=== PATIENT | male | born 1975 | race Two or more races ===

== ENCOUNTER 2022-08-19 02:16 | Inpatient (IN) | payer MEDICAID ==
[~2022-08-19] VITALS: Ht 180.3 cm; Wt 165.1 kg
--- NOTE | 2022-08-19 02:35 | NUR ---
BIBSELF C/O CHF EXCARBATION X 1 WEEK, LEG SWELLING. PT A/OX4. TOLERATING R/A AT 93%. W/C BOUND. CONNECTED PT TO POX AND MONITOR. SAFETY MEASURES IN PLACE.
--- NOTE | 2022-08-19 03:00 | NUR ---
R DOUGIE #20G S/L BLOOD COLLECTED AND SENT TO LAB
--- NOTE | 2022-08-19 03:00 | NUR ---
BURN CREW MEMBER AT PT'S BEDSIDE
--- NOTE | 2022-08-19 03:02 | NUR ---
Note maude in EDM - 08/19/22 at 0303 by KOLBY BIBSELF C/O CHF EXCARBATION X 1 WEEK, LEG SWELLING. PT A/OX4. TOLERATING R/A AT 93%. W/C BOUND. CONNECTED PT TO POX AND MONITOR. SAFETY MEASURES IN PLACE.
[2022-08-19 03:10] LABS: BASOPHILS # (AUTO) 0.1 K/uL (0.0-0.2); BASOPHILS % (AUTO) 0.6 % (0.0-2.0); EOSINOPHILS % (AUTO) 6.4 % (0.0-6.0); HEMATOCRIT 33 % (39-51); HEMOGLOBIN 9.7 g/dL (13.5-17.5); LYMPHOCYTES # (AUTO) 1.7 K/uL (0.8-4.8); LYMPHOCYTES % (AUTO) 14.3 % (20.0-44.0); MEAN CORPUSCULAR HGB CONC 30 g/dl (31.0-36.0); MEAN CORPUSCULAR VOLUME 76 fL (80-96); MONOCYTES # (AUTO) 1.3 K/uL (0.1-1.30); MONOCYTES % (AUTO) 10.6 % (2.0-12.0); NEUTROPHILS % (AUTO) 68.1 % (43.0-81.0); PLATELET COUNT (AUTO) 248 K/uL (150-450); RED BLOOD CELL COUNT(AUTO) 4.31 MIL/uL (4.5-6.0); WHITE BLOOD COUNT (AUTO) 11.8 K/uL (4.3-11.0)
[2022-08-19 03:18] LABS: CALCIUM, SERUM 7.7 mg/dL (8.5-10.1); CARBON DIOXIDE 31 mmol/L (21-32); CHLORIDE 106 mmol/L (98-107); CREATININE 2.1 mg/dL (0.6-1.3); GLUCOSE 198 mg/dL (74-106); POTASSIUM 4.2 mmol/L (3.5-5.1); SODIUM SERUM 139 mmol/L (136-145); UREA NITROGEN, BLOOD 39 mg/dL (7-18)
[2022-08-19] MEDS ORDERED: FUROSEMIDE 40 MG/4 ML VIAL ONE (04:18)
[2022-08-19] MEDS ORDERED: HYDROCODONE/APAP 5/325MG TABLET ONE ×2 (04:19→10:52)
[2022-08-19] MEDS ORDERED: FUROSEMIDE 40 MG/4 ML VIAL IV ONE (04:30)
[2022-08-19] MEDS ORDERED: HYDROCODONE/APAP 5/325MG TABLET PO ONE ×2 (04:30→11:00)
--- NOTE | 2022-08-19 04:40 | NUR ---
COVID AND MRSA SWAB DONE, SENT TO LAB
--- NOTE | 2022-08-19 05:28 | NUR ---
CLINICAL REPORT GIVEN TO FAUSTINA FINCH FROM ALLIED PHYSICIANS
--- NOTE | 2022-08-19 07:59 | NUR ---
PT AWAKE AND VERBALLY RESPONSIVE. BREAKFAST TRAY PROVIDED, LAYNE WELL.
--- NOTE | 2022-08-19 08:01 | NUR ---
FAUSTINA FINCH [phone] ALLIED CALLED REQUESTING COVID RESULT FAXED TO [phone]
--- NOTE | 2022-08-19 09:40 | NUR ---
MOVE SHEET SUBMITTED.
--- NOTE | 2022-08-19 10:47 | NUR ---
ND DR ELLSWORTH, OK FOR PT TO HAVE ANOTHER DOSE OF NORCO 5-325 FOR PAIN. ORDER READ BACK AND VERIFIED.
--- NOTE | 2022-08-19 10:59 | NUR ---
CALLED FAUSTINA FINCH [phone] [facility] AUTH #[id number]
--- NOTE | 2022-08-19 11:18 | NUR ---
DR CAMPOS AT BEDSIDE W/ PT
[2022-08-19] MEDS ORDERED: METO25TA20 PO (11:37)
[2022-08-19] MEDS ORDERED: BUME2TAB7 PO (11:37)
[2022-08-19] MEDS ORDERED: INSU100I40 SQ (11:37)
[2022-08-19] MEDS ORDERED: INSU100V7 SQ (11:37)
[2022-08-19] MEDS ORDERED: METF-440 PO (11:37)
[2022-08-19] MEDS ORDERED: LISI10TA29 PO (11:37)
[2022-08-19] MEDS ORDERED: CLON0.1T PO (11:37)
[2022-08-19] MEDS ORDERED: GABA300C PO (11:37)
[2022-08-19] MEDS ORDERED: AMLO-213 PO (11:37)
[2022-08-19] MEDS ORDERED: ASPI-1420 PO (11:37)
[2022-08-19] MEDS ORDERED: DEXTROSE 50%-WATER 50 ML DISP.SYRIN IV PRN (12:00)
[2022-08-19] MEDS ORDERED: Z GUARD REMEDY 4 OZ OINT TP PRN (12:00)
[2022-08-19] MEDS ORDERED: ONDANSETRON HCL/PF 4 MG/2 ML VIAL IVP PRN (12:00)
[2022-08-19] MEDS ORDERED: ACETAMINOPHEN 325 MG TABLET PO PRN (12:00)
--- NOTE | 2022-08-19 12:27 | NUR ---
room 324-2
--- NOTE | 2022-08-19 12:31 | NUR ---
PT REPORT GIVEN TO ENZO BALL
[2022-08-19 12:55] VITALS: BP 144/84
--- NOTE | 2022-08-19 13:11 | NUR ---
PT TRANSFERRED TO 324-1 VIA [facility] ACLS PROTOCOL. WARM HANDOFF GIVEN TO ENZO BALL.
--- NOTE | 2022-08-19 13:30 | NUR ---
BUSINESS ANALYST MANAGER ADMITTING NOTES ADMITTED A 47 YO MALE PT TO UNIT AT 1255 VIA RNEY WITH DX OF CHF. PT IS AOX4 AND ABLE TO MAKE NEEDS KNOWN. ORIENTED TO ROOM AND STAFF. VS TAKEN, STABLE AND RECORDED, PT ON 3LPM VIA NC SATURATING AT 100%, TOLERATING WELL. ON TELEMONITORING SHOWING AFIB AT 110 BPM. WITH NO ACUTE RESPIRATORY DISTRESS NOTED. WITH IV ACCESS NOTED ON RIGHT HAND G#20 SALINE LOCKED, PATENT FLUSHING WELL. ABDOMEN SOFT, NON-TENDER WITH + BOWEL SOUNDS ON FOUR QUADRANTS, LUNGS SOUNDS DIMINISHED AND SOME RHONCHI THROUGHOUT UPON AUSCULTATION. PATIENT'S OLD BILATERAL COMPRESSION WRAP, CHANGED, CLEANED WOUND WITH NS, PAT DRY, WRAPPED WITH NEW KERLIX AND SECURED WITH JD BANDAGE. PHOTOS OF LEG WOUNDS TAKEN. WOUND CONSULT DONE WELL. PATIENT'S BELONGINGS ACCOUNTED FOR. SAFETY MEASURES IMPLEMENTED: BED PLACED IN LOWEST AND LOCKED POSITION, WITH SIDE RAILS UP X2, TRAY TABLE AND CALL LIGHT WITHIN EASY REACH. WILL CONTINUE TO MONITOR DURING MY SHIFT.
[2022-08-19] MEDS: FUROSEMIDE 40 MG/4 ML VIAL IV SCH ×3 (13:38→21:47)
[2022-08-19 13:41] LABS: CHOLESTEROL 98 mg/dL (<200); HDL CHOLESTEROL 43 mg/dL (40-60); LDL 54 mg/dL (0-99); TRIGLYCERIDES 50 mg/dL (30-150)
[2022-08-19] MEDS: BLOOD SUGAR DIAGNOSTIC 1 EACH STRIP IN SCH ×3 (13:48→22:14)
[2022-08-19] MEDS: ENOXAPARIN SODIUM 40 MG/0.4 ML DISP.SYRIN SQ SCH (13:52)
[2022-08-19 14:33] LABS: IRON, SERUM 34 ug/dl (50-175); TOTAL IRON BINDING CAPACITY 292 ug/dl (250-450)
[2022-08-19 14:47] LABS: FERRITIN 54 ng/mL (8-388)
[2022-08-19] MEDS: VANCOMYCIN 1.5 GM in IV D5W 500ml IV SCH (15:36)
[2022-08-19] MEDS: INSULIN REGULAR, HUMAN 100 UNIT/ML 3 ML VIAL SQ PRN ×3 (15:39→22:17)
--- NOTE | 2022-08-19 15:56 | NUR ---
RN NOTES - FR 16 BURNETT INSERTED ORDERED, ASEPTIC TECHNIQUE FOLLOWED, BACK FLOW OF ABOUT 500 ML OF PALE YELLOW URINE FLOWED VIA GRAVITY WITH NO SEDIMENTS NOTED. PATIENT DENIED DISCOMFORT NOR PAIN, WILL CONTINUE TO MONITOR.
[2022-08-19 16:00] VITALS: BP 147/80
[2022-08-19] MEDS: HYDROCODONE/APAP 5/325MG TABLET PO PRN ×2 (17:30→21:48)
--- NOTE | 2022-08-19 17:30 | NUR ---
RN NOTES - PAIN MANAGEMENT PATIENT IS COMPLAINING OF 10/10 LEG PAIN BUT WAS REFUSING NORCO 5, INSISTING ME TO OVERRIDE THE ORDER AND GIVE STRONGER PAIN MEDICATION, GAVE THE NUMBER TO THE DR CAMPOS PER HIS REQUEST. WAS REFUSING HIS ROUTINE LASIX AND 1730 INSULIN BUT LATER ON ASKED FOR IT WHEN I WAS LEAVING THE ROOM. LEFT THE ROOM WHILE PATIENT IS ON THE PHONE WITH THE EPIC SERVICE SPECIALIST.
--- NOTE | 2022-08-19 17:57 | NUR ---
RN NOTES - PATIENT REFUSED HIS TROPONIN BLOOD DRAW, INFORMED MD. WILL RELAY TO THE GRINDING WHEEL DRESSER NURSE.
--- NOTE | 2022-08-19 19:15 | NUR ---
SURGICAL RN CLOSING NOTES PATIENT SITTING ON THE EDGE OF THE BED BEING WATCHED BY CONSTRUCTION REPRESENTATIVE. PATIENT WAS UPSET THAT WE COULDNT GIVE HIM A HIGHER DOSE OF PAIN MEDICATION WHEN HE JUST HAVE NORCO 5 AT 1730. PATIENT IS ABLE TO TOLERATE ROOM AIR THIS TIME, NO SOB NOTED, BREATHING EVEN AND UNLABORED. TELEMONITORING SHOW AFIB AT 110 BPM. PATIENT HAS IV ACCESS ON R HAND G#20 SALINE LOCKED. NO SIGNS OF INFILTRATION. PATIENT HAS BURNETT CATHETER DRAINING PALE YELLOW URINE WITHOUT ANY SEDIMENTS VIA GRAVITY. ALL DUE MEDS GIVEN, ALL NEEDS ATTENDED. SAFETY MEASURES IN PLACE: BED AT LOWEST POSITION AND LOCKED, SIDE RAILS 2X, CALL LIGHT AND TRAY TABLE WITHIN REACH. ENDORSED TO THE STAMP CLASSIFIER NURSE.
--- NOTE | 2022-08-19 19:40 | NUR ---
PROFESSIONAL GOLF TOURNAMENT PLAYER OPENING NOTE RECEIVED PATIENT SITTING ON THE EDGE OF THE BED. PATIENT ON ROOM AIR, ABLE TO TOLERATE ROOM AIR THIS TIME, NO SOB NOTED, BREATHING EVEN AND UNLABORED. TELEMONITORING SHOW AFIB AT 110 BPM. PATIENT HAS IV ACCESS TO RIGHT HAND G#20 SALINE LOCKED. NO SIGNS OF INFILTRATION. PATIENT HAS BURNETT CATHETER DRAINING CLEAR YELLOW URINE WITHOUT ANY SEDIMENTS VIA GRAVITY. SAFETY MEASURES IN PLACE: BED LOCKED, IN LOWEST POSITION, SIDE RAILS 2X, CALL LIGHT AND TRAY TABLE WITHIN REACH. WILL CONTINUE TO MONITOR PT.
[2022-08-19 20:00] VITALS: BP 140/80
[2022-08-19] MEDS: GABAPENTIN 300 MG CAPSULE PO SCH (21:46)
[2022-08-19] MEDS: METOPROLOL TARTRATE 25 MG TABLET PO SCH (21:47)
--- NOTE | 2022-08-19 21:48 | NUR ---
SPECIAL AGENT [employer] NOTE PT C/O PAIN TO BLE. PAIN MED NORCO IS ADMINISTERED TO PT.
[2022-08-19] MEDS: INSULIN GLARGINE, 100 UNIT/ML CARTRIDGE SQ SCH (22:20)
[2022-08-19] MEDS: ZOLPIDEM TARTRATE 5 MG TABLET PO PRN (22:50)
--- NOTE | 2022-08-19 22:50 | NUR ---
DISC PAD KNOCKOUT WORKER NOTE PT REPORTS INSOMNIA. SMOOTHIEN IS GIVEN TO PT.
[2022-08-20] MEDS: FUROSEMIDE 40 MG/4 ML VIAL IV SCH ×6 (01:47→21:31)
[2022-08-20 04:00] VITALS: BP 96/77
[2022-08-20] MEDS: INSULIN REGULAR, HUMAN 100 UNIT/ML 3 ML VIAL SQ PRN ×4 (06:12→22:08)
[2022-08-20] MEDS: BLOOD SUGAR DIAGNOSTIC 1 EACH STRIP IN SCH ×4 (06:14→22:16)
--- NOTE | 2022-08-20 07:05 | NUR ---
CARDIAC CATHETERIZATION TECHNICIAN CLOSING NOTE ASHWIN PT SLEEPING IN BED. PATIENT ON ROOM AIR, ABLE TO TOLERATE ROOM AIR THIS TIME, NO SOB NOTED, BREATHING EVEN AND UNLABORED. TELEMONITORING SHOW AFIB. PATIENT HAS IV ACCESS TO RIGHT HAND G#20 SALINE LOCKED. NO SIGNS OF INFILTRATION. PATIENT HAS BURNETT CATHETER DRAINING CLEAR YELLOW URINE WITHOUT ANY SEDIMENTS VIA GRAVITY, 1100 ML OF URINE DRAINED. SAFETY MEASURES IN PLACE: BED LOCKED, IN LOWEST POSITION, SIDE RAILS 2X, CALL LIGHT AND TRAY TABLE WITHIN REACH. WILL ENDORSE TO AM SHIFT FOR MAGED.
--- NOTE | 2022-08-20 07:30 | NUR ---
SIGN WIRER OPENING NOTE RECEIVED PT ASLEEP IN BED, EASILY AROUSED. A/O X4, ABLE TO MAKE NEEDS KNOWN. ON O2 AT 3L/MIN VIA NASAL CANNULA, TOLERATING WELL. NO SOB NOTED. PT IS NOT IN ANY SIGN OF RESPIRATORY DISTRESS. PT ON TELE MANAGER RESTAURANT WITH CURRENT READING OF AFIB CONTROLLED, HR 99. NO C/O OF CARDIAC DISTRESS VOICED OUT AT THIS TIME. PT'S IV ACCESS ON RIGHT HAND G#20 INTACT AND PATENT. SAFETY MEASURES IN PLACE: BED IN LOWEST AND LOCKED POSITION, SIDE RAILS UP X2, BED ALARM ON, AND CALL LIGHT WITHIN REACH. WILL CONTINUE TO MONITOR PT.
[2022-08-20 08:00] VITALS: BP 139/95
[2022-08-20] MEDS: PANTOPRAZOLE 40 MG TABLET.DR PO SCH (08:26)
[2022-08-20 09:18] LABS: BASOPHILS # (AUTO) 0.1 K/uL (0.0-0.2); BASOPHILS % (AUTO) 0.5 % (0.0-2.0); EOSINOPHILS % (AUTO) 1.9 % (0.0-6.0); HEMATOCRIT 35 % (39-51); HEMOGLOBIN 10.4 g/dL (13.5-17.5); LYMPHOCYTES # (AUTO) 1.4 K/uL (0.8-4.8); MEAN CORPUSCULAR HGB CONC 30 g/dl (31.0-36.0); MEAN CORPUSCULAR VOLUME 78 fL (80-96); MONOCYTES # (AUTO) 1.2 K/uL (0.1-1.30); MONOCYTES % (AUTO) 10.5 % (2.0-12.0); NEUTROPHILS # (AUTO) 8.6 K/uL (1.8-8.9); NEUTROPHILS % (AUTO) 75.1 % (43.0-81.0); PLATELET COUNT (AUTO) 262 K/uL (150-450); RED BLOOD CELL COUNT(AUTO) 4.54 MIL/uL (4.5-6.0); WHITE BLOOD COUNT (AUTO) 11.4 K/uL (4.3-11.0)
[2022-08-20] MEDS: ASPIRIN EC 81 MG TABLET.DR PO SCH (09:41)
[2022-08-20] MEDS: METOPROLOL TARTRATE 25 MG TABLET PO SCH ×2 (09:42→21:31)
[2022-08-20 09:43] LABS: CALCIUM, SERUM 7.6 mg/dL (8.5-10.1); CREATININE 2.4 mg/dL (0.6-1.3); MAGNESIUM 1.9 mg/dL (1.8-2.4); PHOSPHORUS 5.5 mg/dL (2.5-4.9); POTASSIUM 4.9 mmol/L (3.5-5.1)
[2022-08-20] MEDS: ENOXAPARIN SODIUM 40 MG/0.4 ML DISP.SYRIN SQ SCH (09:43)
[2022-08-20 09:57] LABS: THYROID STIMULATING HORMONE 2.083 uIU/mL (0.358-3.74)
[2022-08-20] MEDS: SOD FERRIC GLUC 125 MG in IV NS 0.9% 100 ML IV SCH (14:43)
[2022-08-20] MEDS: VANCOMYCIN 1.5 GM in IV D5W 500ml IV SCH (15:30)
[2022-08-20 16:09] VITALS: BP 126/74
--- NOTE | 2022-08-20 17:34 | NUR ---
RN NOTE PT NOTED WITH 200ML OUTPUT DURING THE SHIFT. PT HAS AN ORDER OF LASIX 40MG Q4HRS AND 2 DOSES WAS GIVEN. BLADDER SCAN WAS DONE AND SHOWED 170ML. CALLED DR. ANDRES CRUZ AND MADE HIM AWARE OF PT'S OUTPUT. PER DR. CRUZ TO ADMINISTER MORE LASIX. MADE HIM AWARE THAT PT HAS ONE DUE RIGHT NOW AT 1700 LASIX 40MG IVP AND ASKED HIM IF OK TO ADMINISTER THAT. MD AGREED. MEDICATION ADMINISTERED ORDERED. WILL MONITOR AND REASSESS PT.
--- NOTE | 2022-08-20 18:43 | NUR ---
DRINK MIXER CLOSING NOTE PT ASLEEP IN BED, EASILY AROUSED. A/O X4, ABLE TO MAKE NEEDS KNOWN. ON O2 AT 3L/MIN VIA NASAL CANNULA, TOLERATING WELL. NO SOB NOTED. PT IS NOT IN ANY SIGN OF RESPIRATORY DISTRESS. PT ON TELE SHOULDER SAWYER WITH CURRENT READING OF AFIB CONTROLLED, HR 83. NO C/O OF CARDIAC DISTRESS VOICED OUT AT THIS TIME. PT'S IV ACCESS ON RIGHT HAND G#20 INTACT AND PATENT. ALL NEEDS ATTENDED. KEPT CLEAN AND COMFORTABLE AT ALL TIMES. SAFETY MEASURES IN PLACE: BED IN LOWEST AND LOCKED POSITION, SIDE RAILS UP X2, AND CALL LIGHT WITHIN REACH. WILL ENDORSE TO LAUNDRY OR DRY CLEANERS COUNTER CLERK NURSE FOR MAGED.
--- NOTE | 2022-08-20 19:50 | NUR ---
RN NOTES: RECEIVED CALL FORM [facility] THAT PATIENT WAS MRSA(+) RIGHT NARE NOTIFY OLLIE REBOLLEDO AND ORDERED STANDARD ORDER OF BACTROBAN APPLY THRU NARES, NATED AND CARRY OUT,
--- NOTE | 2022-08-20 19:52 | NUR ---
CISTERN ROOM OPERATOR OPENING NOTES; RECEIVED PATIENT SLEEP IN BED COMFORTABLY, AROUSABLE TO VERBAL STIMULI, BED IN LOW POSITION, CALL LIGHTS WITHIN REACH, NO COMPLAIN OF PAIN AND DISCOMFORT AT THIS TIME, ON O2 INHALATION AT 3LPM SATURATING WELL, NO SOB WAS OBSERVED, ON TELE MONITOR- A FIB 91 CONTROLLED, IV LINE AT RT HAND#20 SL, ON BURNETT CATHETER- 50CC URINE OUTPUT, PATIENT KEPT CLEAN AND DRY ALL NEEDS MET WILL CONTINUE TO MONITOR.
[2022-08-20 20:00] VITALS: BP 120/96
[2022-08-20] MEDS: GABAPENTIN 300 MG CAPSULE PO SCH (21:31)
[2022-08-20] MEDS: INSULIN GLARGINE, 100 UNIT/ML CARTRIDGE SQ SCH (22:07)
--- NOTE | 2022-08-20 22:16 | NUR ---
RN NOTES: BLOOD SUGAR-265/ 6 UNITS REGULAR INSULIN PER SLIDING SCALE GIVEN,
[2022-08-21] VITALS (60 sets, daily range): BP systolic 70–131; BP diastolic 45–89
[2022-08-21] MEDS: HYDROCODONE/APAP 5/325MG TABLET PO PRN (01:05)
[2022-08-21] MEDS: ZOLPIDEM TARTRATE 5 MG TABLET PO PRN (01:09)
[2022-08-21] MEDS: FUROSEMIDE 40 MG/4 ML VIAL IV SCH ×6 (01:31→21:07)
--- NOTE | 2022-08-21 06:22 | NUR ---
DOG OR ANIMAL SITTER CLOSING NOTES: PATIENT SLEEP IN BED COMFORTABLY, AROUSABLE TO VERBAL STIMULI, BED IN LOW POSITION CALL LIGHTS WITHIN REACH, NO COMPLAIN OF PAIN AND DISCOMFORT AT THIS TIME, ON O2 INHALATION AT 3LPM SATURATING AT 93%, ON TELE MONITOR- SR-83 WITH PAC AND BBB NO SYMPTOMS WAS OBSERVED, ON BURNETT CATHETER- DRAIN 300CC URINE OUTPUT, PATIENT KEPT CLEAN AND DRY ALL NEEDS MET ENDORSE TO INCOMING SHIFT.
[2022-08-21 06:31] LABS: BASOPHILS # (AUTO) 0.1 K/uL (0.0-0.2); BASOPHILS % (AUTO) 0.5 % (0.0-2.0); EOSINOPHILS % (AUTO) 0.8 % (0.0-6.0); HEMATOCRIT 38 % (39-51); HEMOGLOBIN 10.9 g/dL (13.5-17.5); LYMPHOCYTES # (AUTO) 1.4 K/uL (0.8-4.8); LYMPHOCYTES % (AUTO) 7.3 % (20.0-44.0); MEAN CORPUSCULAR HGB CONC 28 g/dl (31.0-36.0); MEAN CORPUSCULAR VOLUME 81 fL (80-96); MONOCYTES % (AUTO) 10.6 % (2.0-12.0); NEUTROPHILS % (AUTO) 80.8 % (43.0-81.0); PLATELET COUNT (AUTO) 259 K/uL (150-450); RED BLOOD CELL COUNT(AUTO) 4.74 MIL/uL (4.5-6.0); WHITE BLOOD COUNT (AUTO) 18.6 K/uL (4.3-11.0)
[2022-08-21] MEDS: INSULIN REGULAR, HUMAN 100 UNIT/ML 3 ML VIAL SQ PRN ×4 (06:37→23:49)
[2022-08-21 06:46] LABS: ALBUMIN 2.2 g/dL (3.4-5.0); BILIRUBIN,TOTAL 0.5 mg/dL (0.2-1.0); CALCIUM, SERUM 7.6 mg/dL (8.5-10.1); MAGNESIUM 2.2 mg/dL (1.8-2.4); PHOSPHORUS 6.8 mg/dL (2.5-4.9); POTASSIUM 5.4 mmol/L (3.5-5.1); TOTAL PROTEIN, SERUM 8.4 g/dL (6.4-8.2)
[2022-08-21] MEDS: BLOOD SUGAR DIAGNOSTIC 1 EACH STRIP IN SCH ×4 (06:53→23:48)
--- NOTE | 2022-08-21 06:53 | NUR ---
RN NOTES: BLOOD SUGAR-202/ 4 UNITS OF REGULAR INSULIN GIVEN PER SLIDING SCALE.
--- NOTE | 2022-08-21 07:15 | NUR ---
ELECTROLYSIS INVESTIGATOR OPENING NOTE RECEIVED PATIENT SLEEP IN BED COMFORTABLY, AROUSABLE TO TOUCH, BED IN LOW POSITION CALL LIGHTS WITHIN REACH, NO COMPLAIN OF PAIN AND DISCOMFORT AT THIS TIME, ON O2 INHALATION AT 4LPM SATURATING AT 93%, ON TELE MONITOR READING CONTROLLED AFIB . WITH IV ACCESS ON THE RIGHT HAND G 22, PATENT AND INTACT. ON BURNETT CATHETER- DRAIN 300CC URINE OUTPUT PER METAL DOOR ASSEMBLER. SAFETY MEASURES ENSURED WITH BED ON LOWEST LOCKED POSITION. SIDE RAILS RAISED. CALL LIGHT WITHIN REACH AT ALL TIMES. IN STABLE CONDITION.
--- NOTE | 2022-08-21 07:53 | NUR ---
county agent Opening Notes Received patient in bed sleeping with hob elevated. Pt is diaphoretic. On O2 inhalation at 3 lpm saturating at 92% on tele monitor and on Garcia catheter. IV access on LAC 20G running @75ml/hr. Safety measures given with bed in low position and locked, call light on reach at all times. Side rails up x2. Will continue with the plan of care. Addendum: 08/21/22 at 0918 by CHERYL LIU RN wrong entry
--- NOTE | 2022-08-21 07:55 | NUR ---
AGATE SETTER NOTE PATIENT NOTED TO HAVE DIAPHORETIC, WAS TALKING BACK WITH SLURRING, VITAL SIGNS CHECKED AND WAS RECORDED. 113/83, 98.2F, 90 BPM, 22 BPM, 94% SAT. IN STABLE CONDITION. COMFORT MEASURES PROVIDED.
--- NOTE | 2022-08-21 08:40 | NUR ---
RAPID RESPONSE CALLED BP 138/95, HR 122, OXYGEN SAT 91%, RR 26 BLOOD SUGAR 188
--- NOTE | 2022-08-21 08:43 | NUR ---
BP 160/99, HR 116, O2 87%, RR 28
--- NOTE | 2022-08-21 08:44 | NUR ---
STARCH DUMPER NOTE AT O825, PATIENT STARTED TO DESATURATE TO 78-80% WITH OXYGEN AT 4LPM VIA NASAL CANULA, PATIENT OXYGEN TITRATED AND CHANGED TO SIMPLE MASK AT 10LPM AND WAS REMOVING THE OXYGEN AND TELE BOX AND GOWN. PATIENT INSTRUCTED TO STAY CALM AND STOPPED BEING WHEN GOWN WAS REMOVED. AT THIS POINT OXYGEN SATURATION WAS AT 90-91% BUT OCCASIONALY DROPS TO 89%. CHARGE NURSE NOTIFIED AND RESPIRATORY THERAPIST CALLED. PATIENT ABG'S DONE AND HOOKED PATIENT TO OXYGEN 10 WITH NON-REBREATHER MASK AND VS CHECKED 160/99, 101, 92% SAT AND BS 188 MG/DL. PATIENT WAS RESPONDING VERY SLUGGISHLY AND HAD NO GAG REFLEX WHEN SUCTIONED. RAPID RESPONSE CALLED AND RAPID RESPONSE TEAM ASSESSED THE PATIENT AND PATIENT WAS IMMEDIATELY TRANSFERRED TO ICU ORDERED. PATIENT ACCOMPANIED BY 2 NURSES AND WAS ENDORSED TO ICU.
--- NOTE | 2022-08-21 08:47 | NUR ---
BATTALION CHIEF NOTE DR. CAMPOS NOTIFIED OF PATIENT'S CONDITION WITH ORDER TO TRANSFER PATIENT TO ICU. PATIENT TRANSFERRED ORDERED.
[2022-08-21] MEDS: METOPROLOL TARTRATE 25 MG TABLET PO SCH ×2 (09:00→21:00)
--- NOTE | 2022-08-21 09:00 | NUR ---
ICU/RN PT POST PIPE LINER, DUE TO ALOC.FROM TELE UNIT.TRANSFER TO ICU. INTUBATED IN ICU BY DNP DAISHA MAGALLANES.PLACED ON THE VENT,AC MODE.,FIO2-100%. OG TUBE INSERTED. RIGHT IJ TLC CATHETER INSERTED.F/C IN PLACE WITH MINIMAL AMOUNT OF DARK URINE.PT IS OBESE.GENERALIZED EDEMA PRESENT. DIPRIVAN ORDERED.BP DECREASED.LEVOPHED ORDERED. LABS REVIEW.MD AWARE. DUE MEDS ARE GIVEN ORDERED.
--- NOTE | 2022-08-21 09:23 | NUR ---
RT RAPID RESPONSE CALL ON PT, ABG DONE, INTUBATED PT WITH DAISHA ELPIDIO 8.0 23CM SECURED AT LIP BILATERAL EQUAL BREATH SOUNDS , PENDING CHEST XRAY PLACED ON MECH VENT PER PELEGS ORDERS AC 24 600 +5 100% ABG IN 1 HR WILL CONT TO MONITOR
[2022-08-21 09:25] LABS: ABG BASE EXCESS -8.6 mmol/L; ABG OXYGEN SATURATION 88.6 % (92.0-98.5); ABG PCO2 100.1 mmHg (35.0-45.0); ABG PO2 71.9 mmHg (75.0-100.0); AaDO2 393.4 mmHg; COHb 1.8 % (0.5-1.5); MetHb 0.3 % (0.0-1.5); O2Hb 86.7 % (94.0-97.0); SITE, ABG Right Radial; VENT MODE, BG NRB MASK
[2022-08-21] MEDS ORDERED: PROPOFOL 100 ML IV PRN ×2 (09:30→10:30)
[2022-08-21] MEDS: ENOXAPARIN SODIUM 40 MG/0.4 ML DISP.SYRIN SQ SCH (09:39)
[2022-08-21] MEDS ORDERED: NOREPINEPHRINE 8 MG in IV NS 0.9% 242 ML IV PRN (10:30)
[2022-08-21 10:45] LABS: ABG BASE EXCESS -2.2 mmol/L; ABG OXYGEN SATURATION 99.5 % (92.0-98.5); ABG PCO2 36.2 mmHg (35.0-45.0); ABG PH 7.403 (7.350-7.450); ABG PO2 208.9 mmHg (75.0-100.0); AaDO2 467.9 mmHg; COHb 1.4 % (0.5-1.5); MetHb 0.1 % (0.0-1.5); SITE, ABG Right Radial; VENT MODE, BG AC 24 650 100%+5
[2022-08-21] MEDS: PROPOFOL 100 ML IV PRN ×3 (10:54→19:28)
[2022-08-21] MEDS: ASPIRIN EC 81 MG TABLET.DR PO SCH (10:59)
[2022-08-21] MEDS: MUPIROCIN OINT 2% 22 GM TUBE NS SCH ×2 (10:59→21:05)
[2022-08-21] MEDS: PANTOPRAZOLE 40 MG TABLET.DR PO SCH (10:59)
[2022-08-21] MEDS ORDERED: LEVOFLOXACIN 500 MG /D5W 100ML 500 MG in PREMIX 1 EA IV ONE (12:00)
[2022-08-21] MEDS ORDERED: DEXTROSE 50%-WATER 50 ML DISP.SYRIN IV PRN (12:30)
[2022-08-21] MEDS: SOD FERRIC GLUC 125 MG in IV NS 0.9% 100 ML IV SCH (14:47)
[2022-08-21] MEDS ORDERED: ROCURONIUM BROMIDE 50 MG/5 ML IV ONE (15:31)
[2022-08-21] MEDS ORDERED: ETOMIDATE 2 MG/ML VIAL IV ONE (15:31)
[2022-08-21] MEDS: VANCOMYCIN 1.5 GM in IV D5W 500ml IV SCH (16:24)
--- NOTE | 2022-08-21 18:02 | NUR ---
ICU/RN PM CARE PROVIDED.DUE MEDS ARE GIVEN ORDERED.PT IS SEDATED WITH DIPRIVAN ,ON SMALL DOSE OF LEVOPHED.LASIX IV WAS GIVEN ORDERED. 250 ML OF URINE OUTPUT FOR 12 HRS.MD AWARE.SUCTION PROVIDED.REPOSITION FOR COMFORT.CONTINUE MONITORING.
--- NOTE | 2022-08-21 19:30 | NUR ---
RN OPENING NOTE RECEIVED PT IN BED ON [facility] VENT, TOLERATING VENT SETTINGS WELL, PT SEDATED ON PROPOFOL@ 20MCG/KG/MIN, PT ALSO ON LEVOPHED @0.02MIC/MG/MIN, MONITOR SHOWING CONTROLLED A FLUTTER, IV ACCESS RIJ & RHAND, BOTH INTACT AND PATENT. PT HAS OG TUBE CLAMPED, NO DIET ORDERED. BURNETT CATHETER DRAINGING SMALL AMOUNT OF YELLOW URINE. PT HAS BLE JD BANDAGES COVERING WOUNDS WITH NO WOUND TREATMENT ON FILE, WOULD CONSULT ORDERED. ALL SAFETY MEASURES IN PLACE. WILL CONTINUE TO MONITOR FOR MAGED.
--- NOTE | 2022-08-21 19:50 | NUR ---
RT Pt received orally intubated w/ 8.0 ETT secured 23cm at the lip line on [facility] vent on settings AC mode, rate 16, VT 650, FIO2 40%, PEEP 0. Airway patent and KELP OR SEAGRASS GATHERER done. Pt suctioned small amount of clear secretions. Alarms set and audible. Vent plugged into red outlet. Ambubag at bedside. Will cont to monitor. Addendum: 08/22/22 at 0010 by YIFAN AGMBOA RT Amended: Links added.
[2022-08-21] MEDS: GABAPENTIN 300 MG CAPSULE PO SCH (21:07)
[2022-08-21] MEDS: INSULIN GLARGINE, 100 UNIT/ML CARTRIDGE SQ SCH (21:17)
--- NOTE | 2022-08-21 21:18 | NUR ---
RN NOTE BS WAS 107, LANTUS NOT GIVEN DUE TO NPO DX.
--- NOTE | 2022-08-21 23:51 | NUR ---
RN NOTE RT JUST TITRATED FIO2 FROM 40% TO 30%.
[2022-08-22] VITALS (56 sets, daily range): BP systolic 85–162; BP diastolic 46–98
[2022-08-22] MEDS: PROPOFOL 100 ML IV PRN ×4 (00:07→20:04)
[2022-08-22] MEDS: FUROSEMIDE 40 MG/4 ML VIAL IV SCH ×3 (00:25→08:14)
[2022-08-22 05:04] LABS: BASOPHILS # (AUTO) 0.2 K/uL (0.0-0.2); BASOPHILS % (AUTO) 1.5 % (0.0-2.0); EOSINOPHILS % (AUTO) 3.3 % (0.0-6.0); HEMATOCRIT 31 % (39-51); HEMOGLOBIN 9.3 g/dL (13.5-17.5); LYMPHOCYTES # (AUTO) 2.2 K/uL (0.8-4.8); LYMPHOCYTES % (AUTO) 14.4 % (20.0-44.0); MEAN CORPUSCULAR HGB CONC 30 g/dl (31.0-36.0); MEAN CORPUSCULAR VOLUME 75 fL (80-96); MONOCYTES # (AUTO) 1.5 K/uL (0.1-1.30); MONOCYTES % (AUTO) 10.2 % (2.0-12.0); NEUTROPHILS # (AUTO) 10.6 K/uL (1.8-8.9); NEUTROPHILS % (AUTO) 70.6 % (43.0-81.0); PLATELET COUNT (AUTO) 259 K/uL (150-450); RED BLOOD CELL COUNT(AUTO) 4.13 MIL/uL (4.5-6.0); WHITE BLOOD COUNT (AUTO) 15.1 K/uL (4.3-11.0)
[2022-08-22] MEDS: BLOOD SUGAR DIAGNOSTIC 1 EACH STRIP IN SCH ×4 (05:28→23:31)
[2022-08-22 05:29] LABS: ALBUMIN 1.8 g/dL (3.4-5.0); BILIRUBIN,TOTAL 0.5 mg/dL (0.2-1.0); CALCIUM, SERUM 7.2 mg/dL (8.5-10.1); CREATININE 3.2 mg/dL (0.6-1.3); MAGNESIUM 1.9 mg/dL (1.8-2.4); PHOSPHORUS 5.3 mg/dL (2.5-4.9); POTASSIUM 4.6 mmol/L (3.5-5.1); TOTAL PROTEIN, SERUM 6.7 g/dL (6.4-8.2)
--- NOTE | 2022-08-22 06:00 | NUR ---
At 0330 Assumed care of this patient from Chris Contreras RN.Patient intubated on full vent support as prescribed.Sedated on Diprivan gtt at 30 mcg.A Futter per cardiac monitoring.Levophed gtt infusing for BP support.NPO ogt clamped.No acute distress noted.Bed bath rendered and complete linens changed.FC to gravity.Turned and repositioned.Will endorse to day shift for MAGED.
--- NOTE | 2022-08-22 07:05 | NUR ---
PARACHUTE PANEL JOINER OPENING NOTE: RECEIVED PT. IN BED, INTUBATED, SEDATED, MOVES EYELIDS TO PAINFUL STIMULI. ETT - 04/18; AC - 16; VT - 650; FIO2 - 30%; PEEP - 0. NO S/S OF RESPIRATORY DISTRESS. PLAN FOR POSSIBLE EXTUBATION TODAY. RESIDENT ATHLETIC TRAINER READS NSR/ATRIAL FLUTTER AT THIS TIME. MULTIPLE SKIN ISSUES NOTED, WAITING FOR WOUND CONSULT. GENERALIZED EDEMA NOTED. HAS AN OG TUBE, CLAMPED, NO GASTRIC RESIDUAL NOTED. HAS BURNETT CATH WITH CLEAR YELLOW URINE NOTED, BAG BELOW BLADDER. IV ACCESS ON R IJ PICC LINE, WITH LEVOPHED RUNNING AT 0.02 MCG/KG/MIN AND DIPRIVAN AT 30 MCG/KG/MIN; ALSO HAS R HAND #20G, PATENT AND SALINE LOCKED. IV SITE DRESSINGS C/D/I WITH NO S/S OF INFILTRATION. PT. ON SOFT BILATERAL WRIST RESTRAINTS, PALPABLE PULSES NOTED AND CAP REFILL < 3 SECS ON ALL EXTREMITIES. SAFETY MEASURES IN PLACE: BED IN LOWEST AND LOCKED POSITION, HOB ELEVATED AT 30 DEGREES, BED ALARM ON, CALL LIGHT WITHIN REACH, SIDE RAILS UP X2. WILL TURN AND REPOSITION IN BED AT LEAST Q2H. WILL CONTINUE TO MONITOR PT. FOR ANY CHANGES.
--- NOTE | 2022-08-22 07:30 | NUR ---
WOUND CARE CONSULT: PT PRESENTS WITH MORBID OBESITY AND LOWER EXTREMITY WOUNDS. DRESSINGS TO LOWER LEGS/FEET ARE DRY AND INTACT. DPM CONSULT CALLED TO DR SEPULVEDA. DISCUSSED SKIN PROTECTION WITH NURSING STAFF. BARIVENTRESS ETS AIR BED IS ON ORDER. PT IS INTUBATED AT THIS TIME. BURNETT CATH NOTED. IN AGREEMENT WITH PLAN OF CARE.
[2022-08-22] MEDS ORDERED: DC PROPOFOL WHEN EXTUBATED XX PRN (08:00)
[2022-08-22] MEDS: PANTOPRAZOLE 40 MG TABLET.DR PO SCH (08:14)
[2022-08-22] MEDS: ENOXAPARIN SODIUM 40 MG/0.4 ML DISP.SYRIN SQ SCH (08:15)
[2022-08-22] MEDS: ASPIRIN EC 81 MG TABLET.DR PO SCH (08:15)
[2022-08-22] MEDS: METOPROLOL TARTRATE 25 MG TABLET PO SCH ×2 (08:16→21:16)
[2022-08-22] MEDS: MUPIROCIN OINT 2% 22 GM TUBE NS SCH ×2 (08:16→21:16)
--- NOTE | 2022-08-22 08:30 | NUR ---
SS consult requested for homelessness over the weekend. SW will follow up at a later time.
[2022-08-22 08:34] LABS: ABG BASE EXCESS -2.3 mmol/L; ABG OXYGEN SATURATION 94.7 % (92.0-98.5); ABG PCO2 36.8 mmHg (35.0-45.0); ABG PH 7.397 (7.350-7.450); ABG PO2 77.6 mmHg (75.0-100.0); AaDO2 93.1 mmHg; COHb 0.9 % (0.5-1.5); MetHb 0.2 % (0.0-1.5); O2Hb 93.7 % (94.0-97.0); SITE, ABG Right Radial
--- NOTE | 2022-08-22 09:30 | NUR ---
CHERRY GROWER NOTE: PT. EXTUBATED, NOW ON 3L/MIN NASAL CANNULA. SATURATING 92-96%. NO S/S OF RESPIRATORY DISTRESS. ABLE TO FOLLOW COMMANDS. WILL CONTINUE TO MONITOR PT. FOR ANY CHANGES.
[2022-08-22 10:59] LABS: ABG BASE EXCESS -2.1 mmol/L; ABG OXYGEN SATURATION 93.5 % (92.0-98.5); ABG PH 7.315 (7.350-7.450); ABG PO2 76.5 mmHg (75.0-100.0); AaDO2 94.3 mmHg; COHb 0.8 % (0.5-1.5); MetHb 0.2 % (0.0-1.5); O2Hb 92.6 % (94.0-97.0); SITE, ABG Right Radial; VENT MODE, BG 3L NC
[2022-08-22] MEDS ORDERED: LEVOFLOXACIN 250 MG /D5W 50 ML 250 MG in PREMIX 1 EA IV SCH (12:00)
[2022-08-22] MEDS: INSULIN REGULAR, HUMAN 100 UNIT/ML 3 ML VIAL SQ PRN ×2 (12:15→18:38)
[2022-08-22] MEDS ORDERED: IV NS 0.9% 250 ML IV PRN (13:00)
[2022-08-22] MEDS: IV NS 0.9% 250 ML IV PRN (13:47)
[2022-08-22] MEDS: CEFEPIME 2 GM in IV D5W 100 ML IV SCH (14:35)
[2022-08-22] MEDS: SOD FERRIC GLUC 125 MG in IV NS 0.9% 100 ML IV SCH (14:36)
--- NOTE | 2022-08-22 15:00 | NUR ---
AIRFRAME AND POWERPLANT MECHANIC NOTE: PT.'S BROTHER AT BEDSIDE AND BROUGHT DAIANA RIVERA. STILL WAITING FOR SWALLOW EVAL. PT. ABLE TO TOLERATE ICE CHIPS WITH NO ISSUE. PT. INSISTING TO EAT. NURSING BEDSIDE SWALLOW SCREEN DONE, PT. ABLE TO TOLERATE WATER WITH NO ISSUES. NOTIFIED NANCY JIMENEZ AND ORDERED PT. TO BE ON CONSISTENT CARB DIET. PT. HAD THE BURGER WITH NO ISSUES. HOB KEPT AT 45 DEGREES. WILL CONTINUE TO MONITOR FOR S/S OF ASPIRATION.
--- NOTE | 2022-08-22 15:15 | NUR ---
HIGH SCHOOL ASSISTANT PRINCIPAL NOTE: DR. SCHREIBER ORDERED CEFEPIME. PHARMACY CONFIRMED WITH DR. SCHREIBER IF OK TO GIVE EVEN THOUGH PT. IS ALLERGIC TO PENICILLIN. DR. SCHREIBER AGREED TO ADMINISTER CEFEPIME. MED ADMINISTERED WITH NO ALLERGIC REACTION NOTED. WILL CONTINUE TO MONITOR PT. FOR ALLERGIC REACTIONS.
--- NOTE | 2022-08-22 19:05 | NUR ---
LUSTER REPAIRER CLOSING NOTE: PT. REMAINS IN BED, AOX4. ON O2 VIA 3L NC. NO S/S OF RESPIRATORY DISTRESS. NOCTURNIST READS ATRIAL FLUTTER AT THIS TIME. NO COMPLAINTS OF DIZZINESS/DISCOMFORT. MULTIPLE SKIN ISSUES NOTED, BILATERAL FOOT WOUND CLEANED AND WRAPPED WITH KERLIX. WAITING FOR PODIATRY CONSULT. BURNETT CATH DRAINED 1,400 ML CLEAR YELLOW URINE THIS SHIFT. IV ACCESS ON R IJ PICC LINE, WITH NS TKO; R HAND #20G, PATENT AND SALINE LOCKED. IV SITE DRESSINGS C/D/I WITH NO S/S OF INFILTRATION. SAFETY MEASURES MAINTAINED: BED IN LOWEST AND LOCKED POSITION, HOB ELEVATED AT 30 DEGREES, BED ALARM ON, CALL LIGHT WITHIN REACH, SIDE RAILS UP X2. TURNED AND REPOSITIONED IN BED AT LEAST Q2H. ENDORSED CONTINUITY OF CARE TO METAL PICKLING EQUIPMENT OPERATOR RN.
--- NOTE | 2022-08-22 20:00 | NUR ---
Received patient A/OX4.VSS.ST with BBB.Respiration even and unlabored with O2 3LNC saturation 95%-98%.FC to gravity.Patient complaints of irritation to scrotal area lotion applied as requested. Ice chips given as requested.Able to move in bed with assistance.Kept comfortable.Safety precaution maintained.Call light at bedside.
[2022-08-22] MEDS: GABAPENTIN 300 MG CAPSULE PO SCH (21:16)
[2022-08-22] MEDS: INSULIN GLARGINE, 100 UNIT/ML CARTRIDGE SQ SCH (21:17)
[2022-08-22] MEDS: HYDROCODONE/APAP 5/325MG TABLET PO PRN (21:24)
--- NOTE | 2022-08-22 22:00 | NUR ---
Pain medication administered for bilateral leg pain with relief.
--- NOTE | 2022-08-22 23:00 | NUR ---
Patient notice his left pinky ring missing.Checked patient belongings at bedside found on one of his black bag.Its white metal with blue stone.Patient now wearing his ring on his left pinky. A separate belonging list made from ICU of all patient belongings placed on his chanrt.
[2022-08-23] VITALS (28 sets, daily range): BP systolic 99–150; BP diastolic 45–96
[2022-08-23] MEDS: CEFEPIME 2 GM in IV D5W 100 ML IV SCH ×2 (00:30→12:56)
[2022-08-23 03:37] LABS: BASOPHILS # (AUTO) 0.1 K/uL (0.0-0.2); BASOPHILS % (AUTO) 0.6 % (0.0-2.0); HEMATOCRIT 29 % (39-51); LYMPHOCYTES # (AUTO) 1.3 K/uL (0.8-4.8); LYMPHOCYTES % (AUTO) 12.5 % (20.0-44.0); MEAN CORPUSCULAR HGB CONC 31 g/dl (31.0-36.0); MEAN CORPUSCULAR VOLUME 76 fL (80-96); MONOCYTES # (AUTO) 1.1 K/uL (0.1-1.30); MONOCYTES % (AUTO) 10.4 % (2.0-12.0); NEUTROPHILS # (AUTO) 7.6 K/uL (1.8-8.9); NEUTROPHILS % (AUTO) 72.5 % (43.0-81.0); PLATELET COUNT (AUTO) 204 K/uL (150-450); RED BLOOD CELL COUNT(AUTO) 3.88 MIL/uL (4.5-6.0); WHITE BLOOD COUNT (AUTO) 10.5 K/uL (4.3-11.0)
[2022-08-23 03:58] LABS: CALCIUM, SERUM 7.1 mg/dL (8.5-10.1); CREATININE 3.3 mg/dL (0.6-1.3); POTASSIUM 4.4 mmol/L (3.5-5.1)
[2022-08-23] MEDS: BLOOD SUGAR DIAGNOSTIC 1 EACH STRIP IN SCH ×4 (05:42→22:15)
[2022-08-23] MEDS: INSULIN REGULAR, HUMAN 100 UNIT/ML 3 ML VIAL SQ PRN ×4 (05:44→22:17)
--- NOTE | 2022-08-23 06:25 | NUR ---
Patient placed on BIPAP by RT Bryson during the night until 0500 well tolerated then back to O2 2LNC.Tele ST 130's early part of the shift then in and out of Afib/A flutter rate controlled when on BIPAP.Denies chest pain or sob.Blood sugar monitored covered per SS.Kept comfortable.
--- NOTE | 2022-08-23 07:14 | NUR ---
EMERGENCY SPILL RESPONSE TECHNICIAN OPEN NOTE: PT. REMAINS IN BED, AOX4. ON O2 VIA 3L VIA NC. NO S/S OF RESPIRATORY DISTRESS. ONSITE HEALTH COACH READS ATRIAL FLUTTER AT THIS TIME. NO COMPLAINTS OF DIZZINESS/DISCOMFORT. MULTIPLE SKIN ISSUES NOTED, BILATERAL FOOT WOUNDS , BURNETT CATH DRAINING CLEAR YELLOW URINE IV ACCESS ON R IJ PICC LINE, WITH NS TKO; R HAND #20G, PATENT AND SALINE LOCKED. IV SITE DRESSINGS C/D/I WITH NO S/S OF INFILTRATION. SAFETY MEASURES MAINTAINED: BED IN LOWES POSITION , CALL LIGHT WITHIN REACH WILL CONTINUE TO MONITOR
[2022-08-23] MEDS: PANTOPRAZOLE 40 MG TABLET.DR PO SCH (07:43)
[2022-08-23] MEDS ORDERED: BUMETANIDE INJ 6 MG in IV D5W 36 ML IV ONE (08:00)
[2022-08-23] MEDS: METOPROLOL TARTRATE 25 MG TABLET PO SCH ×2 (08:15→21:22)
[2022-08-23] MEDS: ENOXAPARIN SODIUM 40 MG/0.4 ML DISP.SYRIN SQ SCH (08:16)
[2022-08-23] MEDS: ASPIRIN EC 81 MG TABLET.DR PO SCH (08:18)
[2022-08-23] MEDS: MUPIROCIN OINT 2% 22 GM TUBE NS SCH ×2 (08:19→21:29)
--- NOTE | 2022-08-23 10:00 | NUR ---
RN NOTE RECEIVED PATIENT IN BED RESTING ALERT ORIENTED X4 VERBALLY RESPONSIVE ON 2L OXYGEN O2:92% IV SITE IS ON RIGHT IJ PICC LINE INTACT BUT LOOSE TO SKIN AND RIGHT HAND IV INTACT PATENT BURNETT CATH IN PLACE URINE DRAINING YELLOW BY GRAVITY,SAFETY MEASURE IMPALEMENT BED IN LOW POSITION AND LOCKED,CALL LIGHT WITHIN REACH CONTINUE TO MONITOR.
--- NOTE | 2022-08-23 11:00 | NUR ---
RN NOTE PATIENT GOT ACCESS FOR HD ON RIGHT FEMORAL CENTER LINE THREE LUMAN HD SITE,BY SENIOR BI DEVELOPER MONIQUE PETER CONTINUE TO MONITOR.
[2022-08-23] MEDS ORDERED: HYDROMORPHONE 1 MG/1 ML DISP.SYRIN IV ONE (12:00)
[2022-08-23] MEDS: SOD FERRIC GLUC 125 MG in IV NS 0.9% 100 ML IV SCH (14:10)
--- NOTE | 2022-08-23 14:49 | NUR ---
SS Note: SS consult requested for homelessness. SW met with pt. at bedside. The pt. was sleeping and rousable through verbal cues. The pt. stated he sought out medical attention as he felt "dizzy". Per EMR, pt. was admitted due to "Acute on chronic heart failure". The pt. is currently very drowsy and attempts to answer questions but falls asleep continuously thought conversation. SW will follow up at a later time when pt. is more awake and able to engage in conversation.
[2022-08-23] MEDS ORDERED: VANCOMYCIN 1.25 GM in IV D5W 250 ML IV SCH (15:00)
--- NOTE | 2022-08-23 18:42 | NUR ---
RN NOTE PATIENT RECEIVED DIALYSIS 2000ML FLUID OUT,CONTINUE TO MONITOR.
--- NOTE | 2022-08-23 18:47 | NUR ---
RN NOTE PATIENT REMAINS ON ALERT ORIENTED X4 VERBALLY RESPONSIVE ON ROOM AIR O2;91% ALL DUE MEDS GIVEN MD ORDERED,IV SITE IS ON RIGHT HAND AND RIGHT FEMORAL THREE LUMAN CENTRAL LINE,AND RIGHT IJ INTACT PATENT,DIALYSIS DONE TODAY,BURNETT CATH IN PLACE,KEPT CLEAN AND DRY ALL THE TIME,HEAD OF THE BED ELEVATED ALL THE TIME,KEPT CALL LIGHT WITHIN REACH,WILL ENDORSE NEXT COMING SHIFT FOR CONTINUATION OF CARE.
--- NOTE | 2022-08-23 19:15 | NUR ---
GUN SYNCHRONIZER OPEN NOTE: PATIENT IS ALERT, ORIENTED X4. VERBALLY RESPONSIVE. ON ROOM AIR SATING AT 92%. IV SITE ON RIGHT HAND PERIPHERAL, RIGHT FEMORAL THREE LUMAN CENTRAL LINE, AND RIGHT IJ INTAC. BURNETT CATH IN PLACE DRAINING YELLOW CLEAR URINE. KEPT CLEAN AND DRY. HOB ELEVATED IN SEMI PERALTA'S POSITION. BILATERAL HALF SIDE RAILS UP X2, BED IN LOW POSITION, LOCKED, BED ALARM ON. CALL LIGHT WITHIN REACH. DENIES PAIN OR DISCOMFORT AT THIS TIME.
--- NOTE | 2022-08-23 20:12 | NUR ---
PT PLACED ON NOC BIPAP 20/,RR 12 FIO2 30%. NO RESPIRATORY DISTRESS NOTED AT THIS TIME. WILL CONTINUE TO MONITOR T/O SHIFT.
[2022-08-23] MEDS: GABAPENTIN 300 MG CAPSULE PO SCH (21:21)
[2022-08-23] MEDS: HYDROCODONE/APAP 5/325MG TABLET PO PRN (21:21)
[2022-08-23] MEDS: INSULIN GLARGINE, 100 UNIT/ML CARTRIDGE SQ SCH (22:18)
[2022-08-24] VITALS (22 sets, daily range): BP systolic 68–136; BP diastolic 35–76
[2022-08-24] MEDS: CEFEPIME 2 GM in IV D5W 100 ML IV SCH ×2 (01:22→12:13)
[2022-08-24] MEDS: IV NS 0.9% 250 ML IV PRN (01:52)
[2022-08-24 04:41] LABS: BASOPHILS # (AUTO) 0.1 K/uL (0.0-0.2); BASOPHILS % (AUTO) 1.2 % (0.0-2.0); EOSINOPHILS % (AUTO) 3.9 % (0.0-6.0); HEMATOCRIT 29 % (39-51); LYMPHOCYTES # (AUTO) 1.4 K/uL (0.8-4.8); LYMPHOCYTES % (AUTO) 15.1 % (20.0-44.0); MEAN CORPUSCULAR HGB CONC 31 g/dl (31.0-36.0); MEAN CORPUSCULAR VOLUME 76 fL (80-96); MONOCYTES % (AUTO) 10.8 % (2.0-12.0); NEUTROPHILS # (AUTO) 6.3 K/uL (1.8-8.9); PLATELET COUNT (AUTO) 176 K/uL (150-450); RED BLOOD CELL COUNT(AUTO) 3.86 MIL/uL (4.5-6.0); WHITE BLOOD COUNT (AUTO) 9.1 K/uL (4.3-11.0)
[2022-08-24 05:07] LABS: CALCIUM, SERUM 6.7 mg/dL (8.5-10.1); CREATININE 3.1 mg/dL (0.6-1.3); MAGNESIUM 1.8 mg/dL (1.8-2.4); PHOSPHORUS 5.8 mg/dL (2.5-4.9); POTASSIUM 4.2 mmol/L (3.5-5.1)
--- NOTE | 2022-08-24 05:37 | NUR ---
OFF BIPAP PER PT REQUEST, PLACED PT ON 2L NC. SPO2 97% NO RESPIRATORY OR SOB NOTED. RN KAYLIN AWARE.
--- NOTE | 2022-08-24 06:07 | NUR ---
RECHARGER CLOSING NOTE: ALERT TIMES 4. BIPAP REMOVED AT 0530 BY RT AND PLACED ON 02 2LPM NC. TOLERATED WELL. AT 0530 REFUSED TO BE CHANGED TO BIGGER BED, RISKS VS BENEFITS EXPLAINED, VERBALIZED UNDERSTANDING AND STILL REFUSED. OFFERED TIMES THREE, PER PATIENT REQUEST TO BE CHANGED TO BIGGER BED AFTER 7 AM. REFUSED ROUTINE CARE AT THIS TIME. CONTINUE TO NOTE WITH IESHA ON TELE MONITOR. RIGHT IJ CENTRAL LINE INTACT WITH CLEAN DRESSING. RIGHT HAND PERIPHERAL IV INTACT WITH NO S/S OFCOMPLICATIONS. RIGHT FEMORAL CENTRAL IV CATHETER INTACT WITH CLEAN DRESSING. BURNETT CATHETER IN PLACE DRAINING YELLOW URINE. HOB ELEVATED 45 DEGREE ANGLE, BED IN LOWEST POSITION, LOCKED, BED EXIT ALARM ON. BILATERAL HALF SIDE RAILS UP X2. CALL LIGHT IN REACH. DENIES PAIN OR DISCOMFORT AT THIS TIME.
--- NOTE | 2022-08-24 07:20 | NUR ---
[employer] BOOKKEEPER NOTE RECEIVED PATIENT IN BED RESTING ALERT ORIENTED X4 VERBALLY RESPONSIVE ON 2L OXYGEN VIA NASAL CANNULA, O2:85-90% IV SITE IS ON RIGHT IJ,LOOSE ON HIS SKIN,RIGHT FEMORAL CENTER LINE 3 LUMEN HD ACCESS AND RIGHT HAND INTACT,BURNETT CATH IN PLACE,URINE DRAINING YELLOW BY GRAVITY ,SAFETY MEASURE IMPLEMENT BED IN LOW POSITION AND LOCKED,HEAD OF THE BED ELEVATED,CALL LIGHT WITHIN REACH CONTINUE TO MONITOR.
[2022-08-24] MEDS: BLOOD SUGAR DIAGNOSTIC 1 EACH STRIP IN SCH ×4 (07:39→22:42)
[2022-08-24] MEDS: PANTOPRAZOLE 40 MG TABLET.DR PO SCH (07:43)
[2022-08-24 08:03] LABS: ABG OXYGEN SATURATION 93.5 % (92.0-98.5); ABG PCO2 56.9 mmHg (35.0-45.0); ABG PH 7.269 (7.350-7.450); ABG PO2 74.9 mmHg (75.0-100.0); AaDO2 72.1 mmHg; COHb 1.2 % (0.5-1.5); MetHb 0.2 % (0.0-1.5); O2Hb 92.2 % (94.0-97.0); SITE, ABG Right Radial; VENT MODE, BG NASAL CANNULA
[2022-08-24] MEDS: MUPIROCIN OINT 2% 22 GM TUBE NS SCH ×2 (08:22→21:38)
[2022-08-24] MEDS: DAKINS HALF STRENGTH (0.25%) 480 ML BOTTLE TOP SCH (08:23)
[2022-08-24] MEDS: ASPIRIN EC 81 MG TABLET.DR PO SCH (08:34)
[2022-08-24] MEDS: ENOXAPARIN SODIUM 40 MG/0.4 ML DISP.SYRIN SQ SCH (08:35)
[2022-08-24] MEDS: METOPROLOL TARTRATE 25 MG TABLET PO SCH ×2 (08:44→21:00)
[2022-08-24] MEDS ORDERED: AMINO ACID IV PRN ×3 (11:00)
[2022-08-24] MEDS ORDERED: DEXTROSE 25% IV PRN ×3 (11:00)
[2022-08-24] MEDS ORDERED: ALBUMIN IV PRN ×3 (11:00)
[2022-08-24] MEDS ORDERED: ALBUMIN 25% 25 GM in PREMIX 1 EA IV PRN (11:18)
[2022-08-24] MEDS: INSULIN REGULAR, HUMAN 100 UNIT/ML 3 ML VIAL SQ PRN ×3 (12:12→22:42)
[2022-08-24] MEDS: SOD FERRIC GLUC 125 MG in IV NS 0.9% 100 ML IV SCH (14:55)
[2022-08-24] MEDS: VANCOMYCIN POST DIALYSIS 500MG IV PRN ×2 (15:53)
--- NOTE | 2022-08-24 17:00 | NUR ---
RN NOTE REPORT GIVEN TO MICHAEL GIRALDO AND KONSTANTIN DOWN GRADED TO [facility] UNIT PER DR MULLINS AT ROOM 117-1
--- NOTE | 2022-08-24 18:24 | NUR ---
RN notes - transfer Transferred patient to [facility] with cardiac rn, SR 80+/min. BP 122/63mmHg, SpO2 96% with 1L oxygen via NC. Temp 98.1. Patient does not have any complaint. Call castorena is placed within reach. Bed is locked and placed in the lowest position. ALl needs attended this time. Will continue monitoring and care.
--- NOTE | 2022-08-24 19:07 | NUR ---
RN note Patient is resting in bed without active commplaint. Telemetry showed SR HR 70/min. No SOB with 1L oxygen use via NC. Call castorena is placed within reach. Bed is locked and placed in the lowest position. All safety measures have been implemented. Will endorse PM nurse to continue monitoring and care.
--- NOTE | 2022-08-24 20:00 | NUR ---
TD RN NOTES Patient is resting in bed with no complain of pain or discomfort. Alert and oriented x4, verbally responsive, able to make needs known. IV access on R IJ, R hand, and R femoral HD access, all patent and intact. Telemetry reading SR HR 83/min. No SOB with 1L oxygen use via NC, o2 sat 96%, no distress. Due meds given as ordered, no ASE. Call light within reach. F/C draining yellowish urine. Bed is locked and placed in the lowest position. All safety measures have been implemented. Will continue to monitor.
--- NOTE | 2022-08-24 20:22 | NUR ---
PT CURRENTLY EATING , AND HE REQUESTED TO PLACE NOC BIPAP AT 21:30. ENZO ABDULLAHI NOTIFIED
--- NOTE | 2022-08-24 21:30 | NUR ---
RCVD PT ON 1LPM NC AND PLACED ON NOC BIPAP 20/12, RR 12, FIO2 30% . PT IS AWAKE AND ALERT. NO RESPIRATORY DISTRESS OR SOB NOTED AT THIS TIME. WILL CONTINUE TO MONITOR T/O SHIFT.
--- NOTE | 2022-08-24 21:30 | NUR ---
TD RN NOTES Pt. placed on BIPAP, well tolerated by patient. Satting 96%, no SOB, no distress.
[2022-08-24] MEDS: INSULIN GLARGINE, 100 UNIT/ML CARTRIDGE SQ SCH (22:40)
[2022-08-24] MEDS: GABAPENTIN 300 MG CAPSULE PO SCH (22:45)
--- NOTE | 2022-08-24 22:45 | NUR ---
TD RN NOTES blood sugar at 2200 is 162mg/dl. 3units of regular insulin given per sliding scale and 20units of lantus given as ordered. pt is on PO diet.
[2022-08-25] VITALS: BP 125/51
[2022-08-25] MEDS: CEFEPIME 2 GM in IV D5W 100 ML IV SCH ×2 (02:28→13:18)
[2022-08-25 04:00] VITALS: BP 125/50
--- NOTE | 2022-08-25 05:41 | NUR ---
OFF BIPAP AT THIS TIME PER PT REQUEST. PLACED BACK ON 1L NC. SPO2 96% RN BRADLY NOTIFIED
--- NOTE | 2022-08-25 05:42 | NUR ---
TD rn notes BIPAP off at 052hrs as pts request , pts place on 1l o2 via nc tolerating well.
--- NOTE | 2022-08-25 05:44 | NUR ---
td closing notes Pts remain in bed awake , remains on 1 liter of 02 via nc ,no sob no distress noted , will endorse to rn day shift for continuity of care.
[2022-08-25 06:47] LABS: CALCIUM, SERUM 7.2 mg/dL (8.5-10.1); CREATININE 2.5 mg/dL (0.6-1.3)
[2022-08-25] MEDS: BLOOD SUGAR DIAGNOSTIC 1 EACH STRIP IN SCH ×4 (07:30→21:48)
[2022-08-25] MEDS: HYDROCODONE/APAP 5/325MG TABLET PO PRN (07:51)
--- NOTE | 2022-08-25 08:03 | NUR ---
VLADIMIR RN NOTES RECEIVED PT IN BED AO X4, ON NASAL CANULA 1L SAO2 92% AT THIS TIME. ON TELE MONITOR A FIB/ A FLUTTER HR 77 AT THIS TIME. BURNETT CATHETER TO GRAVITY WITH YELLOW COLOR URINE, RT IJ HL AND RT HAND HL IN PLACE , BED IN LOWEST AND LOCKED POSITION , CALL LIGHT WITHIN REACH , C\O SEVERE PAIN ON BOTH LEGS REFUSED TYLENOL, NORCO I TAB GIVEN ORDERED BP 145/78 SATURATION 92% WILL CONT TO MONITOR CLOSELY
[2022-08-25] MEDS: ENOXAPARIN SODIUM 40 MG/0.4 ML DISP.SYRIN SQ SCH (08:57)
[2022-08-25] MEDS: ASPIRIN EC 81 MG TABLET.DR PO SCH (08:58)
[2022-08-25] MEDS: METOPROLOL TARTRATE 25 MG TABLET PO SCH ×2 (08:58→22:11)
[2022-08-25] MEDS: PANTOPRAZOLE 40 MG TABLET.DR PO SCH (08:59)
--- NOTE | 2022-08-25 09:00 | NUR ---
VLADIMIR RN NOTES PT COMPLAINT OF SEVERE PAIN, DR MUNSON NOTIFIED ORDERED NORCO 10/325 PO Q6H AND DILAUDID 0.5 Q 6H ORDER CARRIED OUT
[2022-08-25] MEDS: HYDROMORPHONE 1 MG/1 ML DISP.SYRIN IV PRN ×2 (09:12→16:05)
[2022-08-25] MEDS: DAKINS HALF STRENGTH (0.25%) 480 ML BOTTLE TOP SCH (09:18)
[2022-08-25] MEDS: MUPIROCIN OINT 2% 22 GM TUBE NS SCH ×2 (09:20→22:17)
[2022-08-25 10:00] VITALS: BP 140/95
[2022-08-25 10:17] LABS: ABG BASE EXCESS -1.7 mmol/L; ABG OXYGEN SATURATION 84.5 % (92.0-98.5); ABG PCO2 62.6 mmHg (35.0-45.0); ABG PH 7.244 (7.350-7.450); ABG PO2 55.3 mmHg (75.0-100.0); AaDO2 41.3 mmHg; COHb 0.9 % (0.5-1.5); MetHb 0.1 % (0.0-1.5); O2Hb 83.7 % (94.0-97.0); SITE, ABG Right Radial; VENT MODE, BG NASAL CANNULA
--- NOTE | 2022-08-25 10:25 | NUR ---
VLADIMIR RN NOTES FEELING BETTER AFTER DILAUDID GIVEN, WILL HAVE PT SOON
--- NOTE | 2022-08-25 11:14 | NUR ---
VLADIMIR RN NOTE PT AT BEDSIDE, PT ABLE TO SIT AT THE EDGE OF THE BED
--- NOTE | 2022-08-25 11:20 | NUR ---
VLADIMIR GIRALDO NOTES UNABLE TO DO CT SCAN OF THE HEAT. PT IS OBESE [address] MUNSON NOTIFIED. NO NEW ORDERS AT THIS TIME Addendum: 08/25/22 at 1525 by ZENA BRADY RN CT HEAD UNABLE TO DO
[2022-08-25] MEDS: INSULIN REGULAR, HUMAN 100 UNIT/ML 3 ML VIAL SQ PRN ×2 (11:59→23:47)
[2022-08-25 12:00] VITALS: BP 143/97
--- NOTE | 2022-08-25 13:46 | NUR ---
SW met with pt. at bedside to completed assessment and assist with DC planning. The pt. was sleeping and receptive to verbal cues. However, pt. requested for SW to return at a later time as he was not feeling well. SW will follow up.
--- NOTE | 2022-08-25 15:23 | NUR ---
returned telephone equipment appraiser note assisted for bed gilbert , able to make bm , keep clean dry , all needs attended
--- NOTE | 2022-08-25 15:47 | NUR ---
VLADIMIR RN NOTES PT FOUND CENTRAL LINE IN RIGHT JUGULAR BLEEDING, TRIPLE LUMEN FLUSHED AND PATENT, PRESSURE DRESSING AND CENTRAL LINE DRESSING APPLIED, BLEEDING STOPPED. WILL CONTINUE TO MONITOR
[2022-08-25 16:00] VITALS: BP 137/72
[2022-08-25] MEDS ORDERED: FUROSEMIDE 20 MG/2 ML VIAL IV STA (17:53)
--- NOTE | 2022-08-25 17:54 | NUR ---
GUNNER'S MATE M NOTE PER DR ALICEA ORDERED LASIX 40 MG IVP TIME ONE ORDER CARRIED OUT
[2022-08-25] MEDS: ALBUMIN 25% 25 GM in PREMIX 1 EA IV PRN (18:21)
--- NOTE | 2022-08-25 18:21 | NUR ---
SHINGLES ROOFER NOTE PER DR NIXON LAMBERT TO GIVE LASIX ,PATIENT HD , HD STARTED ORDERED, ALBUMIN GIVEN BY HD NURSE
--- NOTE | 2022-08-25 18:34 | NUR ---
VLADIMIR RN NOTE PATIENT IN BED , ALERT ORIENTED, ON HD AT THIS TIME, RT IJ TLC SITE STILL SLIGHTLY BLEEDING WILL MONITOR CLOSELY . ON 1L OF O2 NO SOB NOTED AT THIS TIME, WITH BURNETT CATH TO GRAVITY, WITH YELLOW COLOR URINE, ON TELE MONITOR AFIB HR 77, ALL NEEDS ATTENDED, WILL CONT TO MONITOR CLOSELY
[2022-08-25 20:00] VITALS: BP 137/72
--- NOTE | 2022-08-25 20:00 | NUR ---
TD RN NOTES Received Patient in bed with no complain of pain or discomfort.hemodialysis treatment on progress dialysis nurse at bedside .Pts A/o x4, verbally responsive, able to make needs known. IV access on R IJ, R hand, and R femoral HD access, all patent and intact. Telemetry reading SR HR 81/min. No SOB with 1L oxygen use via NC, o2 sat 93%, no distress. Due meds given as ordered, no ASE. Call light within reach. F/C draining yellowish urine. Bed is locked and placed in the lowest position. All safety measures have been implemented. Will continue to monitor.
--- NOTE | 2022-08-25 21:31 | NUR ---
charisma rn notes Hemodialysis treatment ended at this time per [facility] staff internist office based only nurse 3 liters of fluid out , v/s stable afebrile. no sob no distress noted.
--- NOTE | 2022-08-25 22:00 | NUR ---
TD RN NOTES Blood sugar check at 2200: 123mg/dl, lantus 20units given as ordered.
[2022-08-25] MEDS: GABAPENTIN 300 MG CAPSULE PO SCH (22:11)
[2022-08-25] MEDS: INSULIN GLARGINE, 100 UNIT/ML CARTRIDGE SQ SCH (22:13)
[2022-08-25] MEDS: VANCOMYCIN POST DIALYSIS 500MG IV PRN ×2 (22:14)
--- NOTE | 2022-08-25 22:30 | NUR ---
RN TD NOTES Pt. placed on BIPAP, well tolerated by patient. Satting 95%, no SOB, no distress.
--- NOTE | 2022-08-25 23:49 | NUR ---
TD RN NOTES Blood sugar at 0000: 172mg/dl, 3units of regular insulin given per sliding scale as ordered.
[2022-08-26] VITALS: BP 142/79
[2022-08-26 04:00] VITALS: BP 111/72
[2022-08-26 05:25] LABS: ABG OXYGEN SATURATION 93.9 % (92.0-98.5); ABG PCO2 54.6 mmHg (35.0-45.0); ABG PH 7.281 (7.350-7.450); ABG PO2 75.3 mmHg (75.0-100.0); AaDO2 74.4 mmHg; COHb 1.3 % (0.5-1.5); MetHb 0.1 % (0.0-1.5); O2Hb 92.6 % (94.0-97.0); SITE, ABG Right Radial
[2022-08-26] MEDS: INSULIN REGULAR, HUMAN 100 UNIT/ML 3 ML VIAL SQ PRN ×4 (05:33→22:41)
--- NOTE | 2022-08-26 05:34 | NUR ---
TD RN NOTES BLOOD SUGAR CHECK AT 0530: 129MG/DL, NO COVERAGE NEEDED.
[2022-08-26] MEDS: HYDROMORPHONE 1 MG/1 ML DISP.SYRIN IV PRN ×2 (06:07→15:07)
--- NOTE | 2022-08-26 06:30 | NUR ---
TD RN CLOSING NOTES PT IN BED, AWAKE, VERBALLY RESPONSIVE. AOX4, ABLE TO MAKE NEEDS KNOWN,. AFEBRILE. ON 1LPM VIA NC, WELL LAYNE. NO SOB, NO RESP DISTRESS, SATTING 98%. PRN DILAUDID ADMINISTERED ORDERED, PT C/O SEVERE PAIN. VS STABLE. IV ACCESS ON R IJ, R HAND, R HD FEMORAL, ALL PATENT AND INTACT. ALL DUE MEDS GIVEN. SAFETY PRECAUTIONS IMPLEMENTED: BED LOCKED AND LOWEST POSITION. CALL LIGHT WITHIN EASY REACH. WILL ENDORSE TO AM SHIFT.
--- NOTE | 2022-08-26 06:52 | NUR ---
TD rn notes abg result relayed to dr peguero with order to continue bipap , but pts requested to remove bipap explain r/b .
[2022-08-26 07:25] LABS: BASOPHILS # (AUTO) 0.1 K/uL (0.0-0.2); BASOPHILS % (AUTO) 0.6 % (0.0-2.0); EOSINOPHILS % (AUTO) 3.4 % (0.0-6.0); HEMATOCRIT 32 % (39-51); HEMOGLOBIN 9.4 g/dL (13.5-17.5); LYMPHOCYTES # (AUTO) 1.4 K/uL (0.8-4.8); LYMPHOCYTES % (AUTO) 17.2 % (20.0-44.0); MEAN CORPUSCULAR HGB CONC 30 g/dl (31.0-36.0); MEAN CORPUSCULAR VOLUME 79 fL (80-96); MONOCYTES % (AUTO) 12.2 % (2.0-12.0); NEUTROPHILS # (AUTO) 5.4 K/uL (1.8-8.9); NEUTROPHILS % (AUTO) 66.6 % (43.0-81.0); PLATELET COUNT (AUTO) 146 K/uL (150-450); RED BLOOD CELL COUNT(AUTO) 4.05 MIL/uL (4.5-6.0); WHITE BLOOD COUNT (AUTO) 8.1 K/uL (4.3-11.0)
[2022-08-26] MEDS: BLOOD SUGAR DIAGNOSTIC 1 EACH STRIP IN SCH ×4 (07:30→22:42)
[2022-08-26 07:37] LABS: CALCIUM, SERUM 7.6 mg/dL (8.5-10.1); CREATININE 2.4 mg/dL (0.6-1.3); POTASSIUM 4.1 mmol/L (3.5-5.1)
--- NOTE | 2022-08-26 07:52 | NUR ---
RN OPENING NOTES PT IN BED, AWAKE, VERBALLY RESPONSIVE. AOX4, ABLE TO MAKE NEEDS KNOWN,. AFEBRILE. ON BIPAP, WELL LAYNE. NO SOB, NO RESP DISTRESS, IV ACCESS ON R IJ, R HAND, R HD FEMORAL, ALL PATENT AND INTACT. SAFETY PRECAUTIONS IMPLEMENTED: BED LOCKED AND LOWEST POSITION. CALL LIGHT WITHIN EASY REACH.
[2022-08-26 08:00] VITALS: BP 127/76
[2022-08-26] MEDS: ALBUMIN 25% 25 GM in PREMIX 1 EA IV PRN (08:29)
[2022-08-26] MEDS: MUPIROCIN OINT 2% 22 GM TUBE NS SCH ×2 (08:50→21:44)
[2022-08-26] MEDS: ENOXAPARIN SODIUM 40 MG/0.4 ML DISP.SYRIN SQ SCH (08:50)
[2022-08-26] MEDS: METOPROLOL TARTRATE 25 MG TABLET PO SCH ×2 (08:50→21:36)
[2022-08-26] MEDS: ASPIRIN EC 81 MG TABLET.DR PO SCH (08:50)
[2022-08-26] MEDS: PANTOPRAZOLE 40 MG TABLET.DR PO SCH (08:50)
[2022-08-26] MEDS: DAKINS HALF STRENGTH (0.25%) 480 ML BOTTLE TOP SCH (08:50)
[2022-08-26 12:00] VITALS: BP 131/74
--- NOTE | 2022-08-26 12:06 | NUR ---
RT NOTE ABG CANCELLED PER MD ORDER. PLACED BACK ON 1LNC PER DR MULLINS. Addendum: 08/26/22 at 1207 by NAVEEN FOX RT Amended: Links added.
[2022-08-26 16:00] VITALS: BP 131/81
--- NOTE | 2022-08-26 17:03 | NUR ---
RN NOTE DR ALICEA AT BEDSIDE RECEIVED ORDER FOR 40MG IV LASIX X1 NOW. PLACE ORDER
[2022-08-26] MEDS ORDERED: FUROSEMIDE 40 MG/4 ML VIAL IV SCH (17:30)
--- NOTE | 2022-08-26 18:33 | NUR ---
RN CLOSING NOTES PT IN BED, AWAKE, VERBALLY RESPONSIVE. AOX4, ABLE TO MAKE NEEDS KNOWN. ON 1LPM VIA NC, TOLERATING WELL. NO SOB, NO RESP DISTRESS, SATTING 95%. IV ACCESS ON R IJ, R HAND, R HD FEMORAL, ALL PATENT AND INTACT. ALL DUE MEDS GIVEN. PATIENT HAD HD DONE TODAY 3L REMOVED. SAFETY PRECAUTIONS IMPLEMENTED: BED LOCKED AND LOWEST POSITION. CALL LIGHT WITHIN EASY REACH. WILL ENDORSE TO PM SHIFT.
[2022-08-26 20:00] VITALS: BP 133/69
--- NOTE | 2022-08-26 20:00 | NUR ---
MORRO RN NOTES Received Patient in bed with no complain of pain or discomfort.hemodialysis treatment on progress dialysis nurse at bedside .Pts A/o x4, verbally responsive, able to make needs known. IV access on R IJ, R hand, and R femoral HD access, all patent and intact. Telemetry reading SR HR 81/min. No SOB with 1L oxygen use via NC, o2 sat 94%, no distress. Due meds given as ordered, no ASE. Call light within reach. F/C draining yellowish urine. Bed is locked and placed in the lowest position. All safety measures have been implemented. Will continue to monitor. Addendum: 08/26/22 at 2334 by BRADLY MALDONADO RN PTS NOT ON DIALYSIS ATHIS TIME .PTS HAD DIALYSIS IN DAY SHIFT WITH 3 LITERS OUT .
[2022-08-26] MEDS: GABAPENTIN 300 MG CAPSULE PO SCH (21:35)
[2022-08-26] MEDS: HYDROCODONE/APAP 10/325MG TABLET PO PRN (21:45)
[2022-08-26] MEDS: INSULIN GLARGINE, 100 UNIT/ML CARTRIDGE SQ SCH (22:41)
--- NOTE | 2022-08-26 22:45 | NUR ---
td rn notes Blood sugar for 10 pm is 117 mg/dl mo coverage for regular insulin given per sliding scale.and 20 uniots of lantus given as order.
--- NOTE | 2022-08-26 23:00 | NUR ---
RN TD NOTES Pt. placed on BIPAP,30/12 SETTINGS well tolerated by patient. Sating 95%, no SOB, no distress.
[2022-08-27] VITALS: BP 131/86
--- NOTE | 2022-08-27 03:53 | NUR ---
Found Pt with Bipap removed. Refused to wear again. Placed on 4L NC, SPO2 97%. Pt appears comfortable.
--- NOTE | 2022-08-27 03:53 | NUR ---
RN TD NOTES Pt. removed BIPAP, does not want to put it back . Sating 97%, no SOB, no distress noted .Pts place on via nc tolerating well
[2022-08-27 04:00] VITALS: BP 118/82
--- NOTE | 2022-08-27 04:05 | NUR ---
Titrated down to 1LPM, SPO2 96%. RN notified and aware.
[2022-08-27] MEDS: HYDROCODONE/APAP 10/325MG TABLET PO PRN ×2 (05:28→21:44)
--- NOTE | 2022-08-27 06:34 | NUR ---
TD RN CLOSING NOTES PT IN BED, AWAKE, VERBALLY RESPONSIVE. AOX4, ABLE TO MAKE NEEDS KNOWN,. AFEBRILE. ON 1LPM VIA NC, WELL LAYNE. NO SOB, NO RESP DISTRESS, SATING 97%. PT C/O SEVERE PAIN.PRN NORCO ADMINISTERED ORDERED VS STABLE. IV ACCESS ON R IJ, R HAND, R HD FEMORAL, ALL PATENT AND INTACT. ALL DUE MEDS GIVEN. SAFETY PRECAUTIONS IMPLEMENTED: BED LOCKED AND LOWEST POSITION. CALL LIGHT WITHIN EASY REACH. WILL ENDORSE TO AM SHIFT FOR CONTINUITY OF CARE.
[2022-08-27] MEDS ORDERED: FUROSEMIDE 40 MG/4 ML VIAL IV STA (07:16)
--- NOTE | 2022-08-27 07:25 | NUR ---
VLADIMIR AM OPENING NOTES: RECEIVED PATIENT IN BED ASLEEP BUT EASILY AROUSES TO VOICE AND TACTILE STIMULI. PATIENT IS ALERT, ORIENTED X 4. PATIENT HAS NO RESPIRATORY DISTRESS NOTED AT THIS TIME, BREATHING EVEN AND UNLABORED. ON OXYGEN @ 1L/MIN VIA N/C WITH OXYGEN SATURATION OF 94%. ON CONTROLLED A-FIB WITH HR OF 63 PER TELE MONITOR. NO C/O PAIN OR DISCOMFORT NOTED AT THIS TIME. PATIENT HAS IV ACCESS ON RIGHT INTRAJUGULAR TRIPLE LUMEN, PATENT, FLUSHES WELL, DRESSING DRY AND INTACT. ALSO HAS HEMODIALYSIS ACCESS SITE ON RIGHT FEMORAL, SITE INTACT. BURNETT CATHETER IN PLACE, DRAINING WITH DARK YELLOW COLORED URINE, NO HEMATURIA AND NO SEDIMENTATION NOTED. ALL SAFETY MEASURES IN PLACE. BED LOOKED AND IN LOWEST POSITION CALL LIGHT WITHIN REACH. WILL CONTINUE TO MONITOR PATIENT THROUGHPUT SHIFT.
[2022-08-27] MEDS: PANTOPRAZOLE 40 MG TABLET.DR PO SCH (07:34)
[2022-08-27 08:00] VITALS: BP 130/67
[2022-08-27] MEDS: BLOOD SUGAR DIAGNOSTIC 1 EACH STRIP IN SCH ×4 (08:14→21:40)
[2022-08-27] MEDS: DAKINS HALF STRENGTH (0.25%) 480 ML BOTTLE TOP SCH (08:55)
[2022-08-27] MEDS: MUPIROCIN OINT 2% 22 GM TUBE NS SCH ×2 (08:55→21:41)
[2022-08-27] MEDS: ASPIRIN EC 81 MG TABLET.DR PO SCH (08:55)
[2022-08-27] MEDS: METOPROLOL TARTRATE 25 MG TABLET PO SCH ×2 (08:56→21:39)
[2022-08-27] MEDS: ENOXAPARIN SODIUM 40 MG/0.4 ML DISP.SYRIN SQ SCH (08:57)
[2022-08-27] MEDS: INSULIN REGULAR, HUMAN 100 UNIT/ML 3 ML VIAL SQ PRN (11:52)
[2022-08-27 12:00] VITALS: BP 150/70
--- NOTE | 2022-08-27 12:15 | NUR ---
DIALYSIS NURSE NIC CAME TO START THE PATIENTS' DIALYSIS. PATIENT IN NO ACUTE DISTRESS NOTED.
[2022-08-27 13:10] LABS: BASOPHILS % (AUTO) 0.3 % (0.0-2.0); EOSINOPHILS % (AUTO) 3.1 % (0.0-6.0); HEMATOCRIT 33 % (39-51); HEMOGLOBIN 9.8 g/dL (13.5-17.5); LYMPHOCYTES # (AUTO) 1.4 K/uL (0.8-4.8); LYMPHOCYTES % (AUTO) 16.3 % (20.0-44.0); MEAN CORPUSCULAR HGB CONC 29 g/dl (31.0-36.0); MEAN CORPUSCULAR VOLUME 79 fL (80-96); MONOCYTES % (AUTO) 11.8 % (2.0-12.0); NEUTROPHILS # (AUTO) 5.8 K/uL (1.8-8.9); NEUTROPHILS % (AUTO) 68.5 % (43.0-81.0); PLATELET COUNT (AUTO) 135 K/uL (150-450); RED BLOOD CELL COUNT(AUTO) 4.21 MIL/uL (4.5-6.0); WHITE BLOOD COUNT (AUTO) 8.5 K/uL (4.3-11.0)
[2022-08-27 13:43] LABS: CALCIUM, SERUM 7.7 mg/dL (8.5-10.1); CREATININE 2.4 mg/dL (0.6-1.3)
--- NOTE | 2022-08-27 14:15 | NUR ---
DIALYSIS WAS DONE AND HD NURSE WAS ABLE TO REMOVE 3 LITERS OF FLUID. PATIENT WAS ABLE TO TOLERATE THE PROCEDURE WELL.
[2022-08-27 16:00] VITALS: BP 120/68
--- NOTE | 2022-08-27 18:45 | NUR ---
VLADIMIR PM CLOSING NOTES: PATIENT IN BED AWAKE, ALERT, ORIENTED X 4. NO RESPIRATORY DISTRESS NOTED THE ENTIRE SHIFT. ON OXYGEN @ 1L/MIN VIA N/C WITH OXYGEN SATURATION OF 95%. ON CONTROLLED A-FIB WITH HR OF 82 PER TELE MONITOR. IV ACCESS ON RIGHT INTRAJUGULAR TRIPLE LUMEN, PATENT, FLUSHES WELL, DRESSING DRY AND INTACT. ALSO HAS HEMODIALYSIS ACCESS SITE ON RIGHT FEMORAL, SITE INTACT. BURNETT CATHETER IN PLACE, EMPTIED 300 ML OF DARK YELLOW COLORED URINE, NO HEMATURIA AND NO SEDIMENTATION NOTED. PATIENT REMAINS STABLE THROUGHOUT SHIFT. ALL NEEDS MET AND ANTICIPATED. ALL SAFETY MEASURES IMPLEMENTED THROUGHOUT SHIFT. BED LOCKED AND IN LOWEST POSITION. WILL ENDORSE TO NEXT SHIFT NURSE FOR CONTINUITY OF CARE.
[2022-08-27 20:00] VITALS: BP 121/66
--- NOTE | 2022-08-27 20:00 | NUR ---
VLADIMIR RN NOTE PT IN BED AWAKE. A/O X 4, NO SOB, NO DISTRESS OR DISCOMFORT NOTED. DENIES PAIN. ANXIOUS AT TIMES SCREAMS EASILY GETS AGITATED. ON TELE A FIB HR 68. NOTED PT PULLED OUT RT HAND SL, NO BLEEDING NOTED. RIJ TLC INTACT AND PATENT TKO. RT FEMORAL HD CATH INTACT. F/C INTACT AND PATENT DRAINING YELLOWISH COLOR URINE. SIDE RAILS UP X 3 AND CALL LIGHT WITHIN REACH. VSS. CONTINUE TO MONITOR HIM.
[2022-08-27] MEDS: GABAPENTIN 300 MG CAPSULE PO SCH (21:39)
[2022-08-27] MEDS: INSULIN GLARGINE, 100 UNIT/ML CARTRIDGE SQ SCH (21:42)
[2022-08-28] VITALS: BP_SYST 106; BP_SYST 125; BP_DIAS 62; BP_DIAS 67
[2022-08-28 04:00] VITALS: BP 117/77
[2022-08-28 06:40] LABS: BASOPHILS # (AUTO) 0.1 K/uL (0.0-0.2); BASOPHILS % (AUTO) 0.9 % (0.0-2.0); EOSINOPHILS % (AUTO) 4.4 % (0.0-6.0); HEMATOCRIT 29 % (39-51); LYMPHOCYTES # (AUTO) 1.5 K/uL (0.8-4.8); MEAN CORPUSCULAR HGB CONC 31 g/dl (31.0-36.0); MEAN CORPUSCULAR VOLUME 78 fL (80-96); MONOCYTES # (AUTO) 0.9 K/uL (0.1-1.30); MONOCYTES % (AUTO) 12.6 % (2.0-12.0); NEUTROPHILS # (AUTO) 4.5 K/uL (1.8-8.9); NEUTROPHILS % (AUTO) 62.1 % (43.0-81.0); PLATELET COUNT (AUTO) 115 K/uL (150-450); RED BLOOD CELL COUNT(AUTO) 3.75 MIL/uL (4.5-6.0); WHITE BLOOD COUNT (AUTO) 7.3 K/uL (4.3-11.0)
--- NOTE | 2022-08-28 06:40 | NUR ---
VLADIMIR RN NOTE PT IN BED ASLEEP, ON BIPAP. NO DISTRESS OR DISCOMFORT NOTED. NO S/S OF PAIN NOTED. ON TELE A FIB CONTROLLED. ALL NEEDS ATTENDED. KEPT HIM DRY AND CLEAN. WILL ENDORSE TO DAY SHIFT NURSE FOR CONTINUE TO CARE.
[2022-08-28 07:09] LABS: CALCIUM, SERUM 7.7 mg/dL (8.5-10.1); CREATININE 2.4 mg/dL (0.6-1.3); POTASSIUM 4.1 mmol/L (3.5-5.1)
--- NOTE | 2022-08-28 07:20 | NUR ---
VLADIMIR AM OPENING NOTES: RECEIVED PATIENT IN BED AWAKE, ALERT, ORIENTED X 4. NO SOB NOTED AT THIS TIME, BREATHING EVEN AND UNLABORED. ON OXYGEN @ 1L/MIN VIA N/C WITH OXYGEN SATURATION OF 97%. ON CONTROLLED A-FIB WITH HR OF 82 PER TELE MONITOR. NO C/O PAIN OR DISCOMFORT NOTED AT THIS TIME. IV ACCESS ON RIGHT INTRAJUGULAR TRIPLE LUMEN, PATENT, FLUSHES WELL, DRESSING DRY AND INTACT. PATIENT'S HEMODIALYSIS ACCESS SITE ON RIGHT FEMORAL IS INTACT. BURNETT CATHETER IN PLACE, DRAINING WITH DARK YELLOW COLORED URINE, NO HEMATURIA AND NO SEDIMENTATION NOTED. ALL SAFETY MEASURES IN PLACE. BED LOOKED AND IN LOWEST POSITION WITH BED ALARM ON. CALL LIGHT WITHIN REACH. WILL CONTINUE TO MONITOR PATIENT THROUGHOUT SHIFT.
[2022-08-28 08:00] VITALS: BP 158/84
[2022-08-28] MEDS: BLOOD SUGAR DIAGNOSTIC 1 EACH STRIP IN SCH ×4 (08:35→22:27)
[2022-08-28] MEDS: PANTOPRAZOLE 40 MG TABLET.DR PO SCH (08:35)
[2022-08-28] MEDS: ASPIRIN EC 81 MG TABLET.DR PO SCH (08:51)
[2022-08-28] MEDS: ENOXAPARIN SODIUM 40 MG/0.4 ML DISP.SYRIN SQ SCH (08:52)
[2022-08-28] MEDS: DAKINS HALF STRENGTH (0.25%) 480 ML BOTTLE TOP SCH (08:53)
[2022-08-28] MEDS: METOPROLOL TARTRATE 25 MG TABLET PO SCH ×2 (08:53→21:33)
--- NOTE | 2022-08-28 10:27 | NUR ---
PATIENT WAS NOTED TO HAVE A PERIOD OF AGITATION, THREATENING TO PULL OUT HIS INTRAJUGULAR LINE. INSISTING ON CHANGING THE BED. TRIED TO EXPLAIN TO THE PATIENT THE DANGER OF HIM DOING THAT AND TRIED TO STAY WITH HIM ONE ONE WHILE ANOTHER NURSE TRIED TO CALL THE DOCTOR. DOCTOR NANCY WITH AN ORDER FOR SEROQUEL NEEDED. ORDER NOTED AND CARRIED OUT. STAYED WITH THE PATIENT UNTIL HE CALMS DOWN,
[2022-08-28] MEDS ORDERED: QUETIAPINE FUMARATE 25 MG TABLET PO SCH (11:00)
[2022-08-28] MEDS: QUETIAPINE FUMARATE 25 MG TABLET PO PRN ×2 (11:02→21:31)
--- NOTE | 2022-08-28 11:30 | NUR ---
PATIENT IN BED AND NO PERIOD OF ACTIVELY PULLING HIS LINE. EXPLAINED TO HIM ONE MORE TIME TO NEVER DO THAT AND PROMISED TO NOT TOUCH HIS LINE. WILL ENDORSE TO THE NURSE FOR CONTINUED OBSERVATION FOR SAFETY.
[2022-08-28 12:00] VITALS: BP 140/75
[2022-08-28] MEDS: INSULIN REGULAR, HUMAN 100 UNIT/ML 3 ML VIAL SQ PRN ×2 (12:23→22:30)
--- NOTE | 2022-08-28 12:30 | NUR ---
pt agitated and refusing abg blood draw.
[2022-08-28] MEDS: HYDROCODONE/APAP 10/325MG TABLET PO PRN (14:19)
[2022-08-28 16:00] VITALS: BP 146/62
--- NOTE | 2022-08-28 16:45 | NUR ---
RONA CAME TO START PATIENT'S HEMODIALYSIS. PATIENT AGREED TO THE PROCEDURE.
--- NOTE | 2022-08-28 18:45 | NUR ---
HEMODIALYSIS REMOVED 2L OF FLUID FROM THE PATIENT
--- NOTE | 2022-08-28 18:45 | NUR ---
TELE CLOSING NOTES: PATIENT IN BED ASLEEP BUT EASILY AROUSES TO VOICE AND SOUND. PATIENT STILL HAS ONGOING HD AT THIS TIME. NO S/S PAIN OR DISCOMFORT NOTED AT THIS TIME. NO SYMPTOMS OF AGITATION. IV ACCESS ON RIGHT INTRAJUGULAR AREA IS INTACT, NO BLEEDING NOTED. PATIENT IS ON A-FIB WITH HR OF 73 PER TELE MONITOR. BED LOCKED AND IN LOWEST POSITION. ALL NEEDS MET AND ANTICIPATED. WILL ENDORSE TO NEXT SHIFT NURSE FOR CONTINUITY OF CARE.
--- NOTE | 2022-08-28 18:45 | NUR ---
PATIENT FINISHED HIS HEMODIALYSIS AND IS SLEEPING COMFORTABLY IN BED. WILL ENDORSE TO NEXT SHIFT NURSE FOR CONTINUED OBSERVATION.
--- NOTE | 2022-08-28 19:40 | NUR ---
WAIST CUTTER OPENING NOTE RECEIVED PATIENT IN BED SLEEPING, PT A/ O X 4. NO SOB NOTED AT THIS TIME, BREATHING EVEN AND UNLABORED. ON OXYGEN @ 1L/MIN VIA N/C WITH OXYGEN SATURATION OF 97%. ON CONTROLLED A-FIB WITH HR OF 70 PER TELE MONITOR. NO C/O PAIN OR DISCOMFORT NOTED AT THIS TIME. IV ACCESS ON RIGHT INTRAJUGULAR TRIPLE LUMEN, PATENT, FLUSHES WELL, DRESSING DRY AND INTACT. PATIENT'S HEMODIALYSIS ACCESS SITE ON RIGHT FEMORAL IS INTACT. BURNETT CATHETER IN PLACE, DRAINING CLEAR DARK YELLOW COLORED URINE, WITH NO SEDIMENTATION. SAFETY MEASURES IN PLACE. BED LOCKED AND IN LOWEST POSITION WITH BED ALARM ON. CALL LIGHT WITHIN REACH, SIDE RAILS UP X2. WILL CONTINUE TO MONITOR PATIENT THROUGHOUT SHIFT.
[2022-08-28 20:00] VITALS: BP 110/57
--- NOTE | 2022-08-28 21:30 | NUR ---
RN NOTE PT HAS AN EPISODE OF AGITATION, AND RESTLESSNESS. PT IS ADMINISTERED ATIVAN. PT ALSO C/O ABDOMINAL GAS. MAALOX GIVEN OT PT.
[2022-08-28] MEDS: GABAPENTIN 300 MG CAPSULE PO SCH (21:31)
[2022-08-28] MEDS: MAG HYDROX/AL HYDROX/SIMETH 30 ML UDC PO PRN (21:31)
[2022-08-28] MEDS: INSULIN GLARGINE, 100 UNIT/ML CARTRIDGE SQ SCH (22:28)
[2022-08-29] VITALS: BP 106/62
[2022-08-29 04:00] VITALS: BP 90/52
--- NOTE | 2022-08-29 06:55 | NUR ---
TELE CLOSING NOTES PATIENT IN BED ASLEEP BUT EASILY AROUSES TO VOICE AND SOUND. NO S/S PAIN OR DISCOMFORT NOTED AT THIS TIME. NO AGITATION AT THIS TIME. IV ACCESS ON RIGHT INTRAJUGULAR AREA IS INTACT, NO BLEEDING NOTED. PATIENT IS ON A-FIB WITH HR OF 61 PER TELE MONITOR. BED LOCKED AND IN LOWEST POSITION. ALL NEEDS MET AND ANTICIPATED. WILL ENDORSE TO AM SHIFT NURSE FOR CONTINUITY OF CARE.
--- NOTE | 2022-08-29 07:25 | NUR ---
TELE AM OPENING NOTES: RECEIVED PATIENT IN BED ASLEEP BUT EASILY AROUSES TO VOICE AND TACTILE STIMULI. PATIENT IS ALERT, ORIENTED X 4. NO SOB NOTED AT THIS TIME, BREATHING EVEN AND UNLABORED. ON OXYGEN @ 1L/MIN VIA N/C WITH OXYGEN SATURATION OF 97%. ON CONTROLLED A-FIB WITH HR OF 62 PER TELE MONITOR. PATIENT HAS IV ACCESS ON RIGHT INTRAJUGULAR TRIPLE LUMEN, PATENT, FLUSHES WELL, DRESSING DRY AND INTACT. PATIENT ALSO HAS HEMODIALYSIS ACCESS SITE ON RIGHT FEMORAL WHICH IS INTACT. BURNETT CATHETER IN PLACE, DRAINING WITH DARK YELLOW COLORED URINE, NO HEMATURIA AND NO SEDIMENTATION NOTED. NO S/S OF AGITATION NOTED AT THIS TIME. ALL SAFETY MEASURES IN PLACE. BED LOOKED AND IN LOWEST POSITION WITH BED ALARM ON. CALL LIGHT WITHIN REACH. WILL CONTINUE TO MONITOR PATIENT.
[2022-08-29] MEDS: PANTOPRAZOLE 40 MG TABLET.DR PO SCH (07:40)
[2022-08-29 08:00] VITALS: BP 121/75
[2022-08-29] MEDS: BLOOD SUGAR DIAGNOSTIC 1 EACH STRIP IN SCH ×4 (08:18→22:00)
[2022-08-29] MEDS: METOPROLOL TARTRATE 25 MG TABLET PO SCH ×2 (08:35→21:00)
[2022-08-29] MEDS: ASPIRIN EC 81 MG TABLET.DR PO SCH (08:35)
[2022-08-29] MEDS: ENOXAPARIN SODIUM 40 MG/0.4 ML DISP.SYRIN SQ SCH (08:36)
[2022-08-29] MEDS: DAKINS HALF STRENGTH (0.25%) 480 ML BOTTLE TOP SCH (08:37)
--- NOTE | 2022-08-29 08:51 | NUR ---
RT ABG refused by pt. No SOB noted
[2022-08-29 08:52] LABS: BASOPHILS # (AUTO) 0.1 K/uL (0.0-0.2); BASOPHILS % (AUTO) 0.8 % (0.0-2.0); HEMATOCRIT 32 % (39-51); HEMOGLOBIN 9.5 g/dL (13.5-17.5); LYMPHOCYTES # (AUTO) 1.4 K/uL (0.8-4.8); LYMPHOCYTES % (AUTO) 20.1 % (20.0-44.0); MEAN CORPUSCULAR HGB CONC 29 g/dl (31.0-36.0); MEAN CORPUSCULAR VOLUME 79 fL (80-96); MONOCYTES # (AUTO) 0.8 K/uL (0.1-1.30); MONOCYTES % (AUTO) 11.8 % (2.0-12.0); NEUTROPHILS # (AUTO) 4.5 K/uL (1.8-8.9); NEUTROPHILS % (AUTO) 63.3 % (43.0-81.0); PLATELET COUNT (AUTO) 110 K/uL (150-450); RED BLOOD CELL COUNT(AUTO) 4.08 MIL/uL (4.5-6.0); WHITE BLOOD COUNT (AUTO) 7.1 K/uL (4.3-11.0)
[2022-08-29 09:21] LABS: CALCIUM, SERUM 7.6 mg/dL (8.5-10.1); CREATININE 2.9 mg/dL (0.6-1.3); POTASSIUM 4.3 mmol/L (3.5-5.1)
[2022-08-29 12:00] VITALS: BP 124/69
[2022-08-29] MEDS: IV NS 0.9% 250 ML IV PRN (12:24)
[2022-08-29] MEDS: INSULIN REGULAR, HUMAN 100 UNIT/ML 3 ML VIAL SQ PRN ×2 (12:30→17:12)
--- NOTE | 2022-08-29 12:42 | NUR ---
DR. LULÚ COLLIER CONTACTED DUE TO PATIENT IS INSISTING ON HAVING A DIFFERENT MEDICATION ASIDE FROM NORCO. PATIENT IS VERY DEMANDING AND HAD A PREVIOUS HISTORY OF TRYING TO PULL OUT HIS IV LINE WITH A NEW ORDER FOR SEROQUEL. ORDER NOTED AND CARRIED OUT.
[2022-08-29 16:00] VITALS: BP 134/71
[2022-08-29] MEDS: QUETIAPINE FUMARATE 25 MG TABLET PO SCH (17:00)
--- NOTE | 2022-08-29 18:49 | NUR ---
HEMODIALYSIS STARTED AT 1849HRS
--- NOTE | 2022-08-29 18:56 | NUR ---
TELE PM CLOSING NOTES PATIENT IN BED ASLEEP, DOES WAKE UP WHEN CALLED EASILY AROUSES. PATIENT IS ALERT, ORIENTED X 3. NO SOB NOTED THE ENTIRE SHIFT, BREATHING EVEN AND UNLABORED. ON OXYGEN @ 1L/MIN VIA N/C WITH OXYGEN SATURATION OF 97%. ON CONTROLLED A-FIB WITH HR OF 62 PER TELE MONITOR. PATIENT HAS IV ACCESS ON RIGHT INTRAJUGULAR TRIPLE LUMEN, PATENT, AND FLUSHES WELL, DRESSING DRY AND INTACT. PATIENT ALSO HAS HEMODIALYSIS ACCESS SITE ON RIGHT FEMORAL WHICH IS INTACT. BURNETT CATHETER IN PLACE, DRAINING WITH DARK YELLOW COLORED URINE, NO HEMATURIA AND NO SEDIMENTATION NOTED. NO S/S OF AGITATION NOTED AT THIS TIME. ALL SAFETY MEASURES IN PLACE. BED LOCKED AND IN LOWEST POSITION WITH BED ALARM ON. CALL LIGHT WITHIN REACH. WILL ENDORSE TO GARDE MANAGER NURSE.
[2022-08-29 20:00] VITALS: BP 126/85
[2022-08-29] MEDS: GABAPENTIN 300 MG CAPSULE PO SCH (23:21)
[2022-08-29] MEDS: INSULIN GLARGINE, 100 UNIT/ML CARTRIDGE SQ SCH (23:32)
[2022-08-30] MEDS: METOPROLOL TARTRATE 25 MG TABLET PO SCH ×3 (01:29→20:40)
[2022-08-30 02:00] VITALS: BP 99/69
[2022-08-30 04:00] VITALS: BP 135/62
[2022-08-30 07:18] LABS: BASOPHILS % (AUTO) 0.7 % (0.0-2.0); EOSINOPHILS % (AUTO) 3.4 % (0.0-6.0); HEMATOCRIT 29 % (39-51); HEMOGLOBIN 8.9 g/dL (13.5-17.5); LYMPHOCYTES # (AUTO) 1.3 K/uL (0.8-4.8); LYMPHOCYTES % (AUTO) 17.5 % (20.0-44.0); MEAN CORPUSCULAR HGB CONC 30 g/dl (31.0-36.0); MEAN CORPUSCULAR VOLUME 79 fL (80-96); MONOCYTES # (AUTO) 0.8 K/uL (0.1-1.30); MONOCYTES % (AUTO) 10.9 % (2.0-12.0); NEUTROPHILS % (AUTO) 67.5 % (43.0-81.0); PLATELET COUNT (AUTO) 105 K/uL (150-450); RED BLOOD CELL COUNT(AUTO) 3.72 MIL/uL (4.5-6.0); WHITE BLOOD COUNT (AUTO) 7.4 K/uL (4.3-11.0)
--- NOTE | 2022-08-30 07:40 | NUR ---
TITLE CURATOR OPENING NOTES PATIENT IN BED ASLEEP, DOES WAKE UP WHEN CALLED EASILY AROUSES. PATIENT IS ALERT, ORIENTED X 3. NO SOB NOTED, BREATHING EVEN AND UNLABORED. ON OXYGEN @ 1L/MIN VIA N/C WITH OXYGEN SATURATION OF 98%. ON CONTROLLED A-FIB WITH HR OF 65 PER TELE MONITOR. PATIENT HAS IV ACCESS ON RIGHT INTRAJUGULAR TRIPLE LUMEN, PATENT, AND FLUSHES WELL, DRESSING DRY AND INTACT. PATIENT ALSO HAS HEMODIALYSIS ACCESS SITE ON RIGHT FEMORAL WHICH IS INTACT. BURNETT CATHETER IN PLACE, DRAINING WITH DARK YELLOW COLORED URINE, NO HEMATURIA AND NO SEDIMENTATION NOTED. NO S/S OF AGITATION NOTED AT THIS TIME. ALL SAFETY MEASURES IN PLACE. BED LOCKED AND IN LOWEST POSITION WITH BED ALARM ON. CALL LIGHT WITHIN REACH. WILL CONTINUE TO MONITOR
[2022-08-30 07:48] LABS: CALCIUM, SERUM 7.9 mg/dL (8.5-10.1); MAGNESIUM 2.1 mg/dL (1.8-2.4); PHOSPHORUS 4.7 mg/dL (2.5-4.9); POTASSIUM 4.4 mmol/L (3.5-5.1)
--- NOTE | 2022-08-30 07:52 | NUR ---
This patient is refusing to be cleaned because he is tired as well as being weighed by another method due to the bed not functioning to calculate his weight today. This was reported to the oncoming nurse.
[2022-08-30 08:00] VITALS: BP 145/69
[2022-08-30] MEDS: PANTOPRAZOLE 40 MG TABLET.DR PO SCH (08:35)
[2022-08-30] MEDS: BLOOD SUGAR DIAGNOSTIC 1 EACH STRIP IN SCH ×4 (08:36→20:41)
[2022-08-30] MEDS: DAKINS HALF STRENGTH (0.25%) 480 ML BOTTLE TOP SCH (09:00)
[2022-08-30] MEDS: QUETIAPINE FUMARATE 25 MG TABLET PO SCH ×2 (09:31→16:21)
[2022-08-30] MEDS: ASPIRIN EC 81 MG TABLET.DR PO SCH (09:31)
[2022-08-30] MEDS: ENOXAPARIN SODIUM 40 MG/0.4 ML DISP.SYRIN SQ SCH (09:34)
[2022-08-30 12:00] VITALS: BP 125/76
[2022-08-30 16:00] VITALS: BP 138/69
[2022-08-30] MEDS: INSULIN REGULAR, HUMAN 100 UNIT/ML 3 ML VIAL SQ PRN ×2 (17:25→20:50)
--- NOTE | 2022-08-30 18:08 | NUR ---
TELE PM CLOSING NOTES PATIENT AWAKE, ALERT AND ORIENTED X 3. NO SOB NOTED THE ENTIRE SHIFT, BREATHING EVEN AND UNLABORED. ON OXYGEN @ 1L/MIN VIA N/C WITH OXYGEN SATURATION OF 100%. ON CONTROLLED A-FIB WITH HR OF 98 PER TELE MONITOR. PATIENT HAS IV ACCESS ON RIGHT INTRAJUGULAR TRIPLE LUMEN, PATENT, AND FLUSHES WELL, DRESSING DRY AND INTACT, REFUSED TO BE CHANGED.PATIENT ALSO HAS HEMODIALYSIS ACCESS SITE ON RIGHT FEMORAL WHICH IS INTACT. BURNETT CATHETER IN PLACE, DRAINING WITH DARK YELLOW COLORED URINE 100ML OUTPUT, NO HEMATURIA AND NO SEDIMENTATION NOTED. DIALYSIS DONE THIS MORNING WITH 3000ML OUTPUT, NO COMPLICATIONS NOTED. WITH AGITATION NOTED AT TIMES BUT MANAGED NOT TO ESCALATE BY UTILIZING THERAPEUTIC COMMUNICATION. ALL SAFETY MEASURES IN PLACE. ALL DUE MEDS WAS GIVEN. BED LOCKED AND IN LOWEST POSITION WITH BED ALARM ON. CALL LIGHT WITHIN REACH. WILL ENDORSE TO PACKING MACHINE OPERATOR NURSE.
[2022-08-30 20:00] VITALS: BP 149/71
[2022-08-30] MEDS: HYDROCODONE/APAP 10/325MG TABLET PO PRN (20:41)
[2022-08-30] MEDS: GABAPENTIN 300 MG CAPSULE PO SCH (20:41)
[2022-08-30] MEDS: INSULIN GLARGINE, 100 UNIT/ML CARTRIDGE SQ SCH (20:49)
[2022-08-31] VITALS: BP 147/70
[2022-08-31 04:00] VITALS: BP 126/66
[2022-08-31] MEDS: BLOOD SUGAR DIAGNOSTIC 1 EACH STRIP IN SCH ×4 (06:32→21:40)
[2022-08-31 07:19] LABS: BASOPHILS # (AUTO) 0.1 K/uL (0.0-0.2); BASOPHILS % (AUTO) 0.8 % (0.0-2.0); EOSINOPHILS % (AUTO) 4.1 % (0.0-6.0); HEMATOCRIT 31 % (39-51); HEMOGLOBIN 9.2 g/dL (13.5-17.5); LYMPHOCYTES # (AUTO) 1.7 K/uL (0.8-4.8); LYMPHOCYTES % (AUTO) 22.9 % (20.0-44.0); MEAN CORPUSCULAR HGB CONC 30 g/dl (31.0-36.0); MEAN CORPUSCULAR VOLUME 79 fL (80-96); MONOCYTES # (AUTO) 0.8 K/uL (0.1-1.30); MONOCYTES % (AUTO) 10.8 % (2.0-12.0); NEUTROPHILS # (AUTO) 4.4 K/uL (1.8-8.9); NEUTROPHILS % (AUTO) 61.4 % (43.0-81.0); PLATELET COUNT (AUTO) 98 K/uL (150-450); WHITE BLOOD COUNT (AUTO) 7.2 K/uL (4.3-11.0)
[2022-08-31 07:24] LABS: CALCIUM, SERUM 7.9 mg/dL (8.5-10.1); CREATININE 3.3 mg/dL (0.6-1.3); MAGNESIUM 2.2 mg/dL (1.8-2.4); PHOSPHORUS 5.1 mg/dL (2.5-4.9); POTASSIUM 4.2 mmol/L (3.5-5.1)
--- NOTE | 2022-08-31 07:30 | NUR ---
TELECOMMUNICATIONS FIELD ENGINEER OPENING NOTES: RECEIVED PATIENT IN BED ASLEEP BUT EASILY AROUSES TO VOICE AND TACTILE STIMULI. PATIENT IS ALERT, ORIENTED X 4. NO SOB NOTED AT THIS TIME, BREATHING EVEN AND UNLABORED. ON OXYGEN @ 1L/MIN VIA N/C WITH OXYGEN SATURATION OF 98%. ON CONTROLLED A-FIB WITH HR OF 68 PER TELE MONITOR. PATIENT HAS IV ACCESS ON RIGHT INTRAJUGULAR TRIPLE LUMEN, PATENT, FLUSHES WELL, DRESSING DRY AND INTACT. PATIENT ALSO HAS HEMODIALYSIS ACCESS SITE ON RIGHT FEMORAL WHICH IS INTACT. BURNETT CATHETER IN PLACE, DRAINING WITH RED COLORED URINE, AND NO SEDIMENTATION OR CLOT NOTED. NO S/S OF AGITATION NOTED AT THIS TIME. PATIENT ADVISED TO NOT MOVE ABRUPTLY OR PULL BURNETT CATHETER IT CAN CAUSE DAMAGE. ALL SAFETY MEASURES IN PLACE. BED LOOKED AND IN LOWEST POSITION WITH BED ALARM ON. CALL LIGHT WITHIN REACH. WILL CONTINUE TO MONITOR PATIENT.
[2022-08-31 08:00] VITALS: BP 139/78
[2022-08-31] MEDS: PANTOPRAZOLE 40 MG TABLET.DR PO SCH (08:14)
[2022-08-31] MEDS: ENOXAPARIN SODIUM 40 MG/0.4 ML DISP.SYRIN SQ SCH (09:00)
[2022-08-31] MEDS: ASPIRIN EC 81 MG TABLET.DR PO SCH (09:00)
[2022-08-31] MEDS: QUETIAPINE FUMARATE 25 MG TABLET PO SCH ×2 (09:02→17:25)
[2022-08-31] MEDS: METOPROLOL TARTRATE 25 MG TABLET PO SCH ×2 (09:02→21:00)
[2022-08-31] MEDS: DAKINS HALF STRENGTH (0.25%) 480 ML BOTTLE TOP SCH (09:03)
--- NOTE | 2022-08-31 10:59 | NUR ---
CONGRESSIONAL ASSISTANT NOTE ASPIRIN & ENOXAPARIN HELD BECAUSE OF HEMATURIA IN BURNETT. HGB IS NOW AT 9.2 INFORMED PHYSICIAN EXTENDER AMIRA. WILL KEEP OBSERVING HNH & HEMATURIA.
--- NOTE | 2022-08-31 11:53 | NUR ---
SAFETY OFFICER NOTE PATIENT STATED HE CAN NOT FIND HIS PHONE, AND IT POSSIBLY WENT IN THE LINEN WHEN HE WAS CHANGED. CALLED [facility] TO CHECK IF ANY CELLPHONE WAS FOUND. EVS STATED THEY WOULD CALL THE [facility] AND CHECK TO SEE IF ANY ITEMS WERE FOUND.
[2022-08-31 12:00] VITALS: BP 148/68
[2022-08-31] MEDS: INSULIN REGULAR, HUMAN 100 UNIT/ML 3 ML VIAL SQ PRN (12:11)
[2022-08-31 16:00] VITALS: BP 135/67
--- NOTE | 2022-08-31 19:02 | NUR ---
SHOT GRINDER OPERATOR CLOSING NOTES PATIENT IN BED ASLEEP BUT EASILY AROUSES TO VOICE AND TACTILE STIMULI. PATIENT IS ALERT, ORIENTED X 4. NO SOB NOTED AT THIS TIME, BREATHING EVEN AND UNLABORED. ON OXYGEN @ 1L/MIN VIA N/C WITH OXYGEN SATURATION OF 97%. ON CONTROLLED A-FIB WITH HR OF 62 PER TELE MONITOR. PATIENT HAS IV ACCESS ON RIGHT INTRAJUGULAR TRIPLE LUMEN, PATENT, FLUSHES WELL, DRESSING DRY AND INTACT. PATIENT ALSO HAS HEMODIALYSIS ACCESS SITE ON RIGHT FEMORAL WHICH IS INTACT. BURNETT CATHETER IN PLACE, DRAINING WITH YELLOW COLORED URINE,NO HEMETURIA, SEDIMENTATION OR CLOT NOTED. NO S/S OF AGITATION NOTED AT THIS TIME. PATIENT ADVISED TO NOT MOVE ABRUPTLY OR PULL BURNETT CATHETER IT CAN CAUSE DAMAGE. ALL SAFETY MEASURES IN PLACE. BED LOOKED AND IN LOWEST POSITION WITH BED ALARM ON. CALL LIGHT WITHIN REACH. WILL ENDORSE PATIENT TO FORM PRESS OPERATOR
[2022-08-31 20:51] LABS: EOSINOPHILS % (MANUAL) 5 % (0-4); LYMPHOCYTES % (MANUAL) 22 % (16-48); MONOCYTES % (MANUAL) 4 % (0-11.0); NEUTROPHILS % (MANUAL) 69 (42-76)
[2022-08-31] MEDS: INSULIN GLARGINE, 100 UNIT/ML CARTRIDGE SQ SCH (21:44)
[2022-08-31] MEDS: GABAPENTIN 300 MG CAPSULE PO SCH (21:44)
[2022-08-31 22:00] VITALS: BP 109/81
--- NOTE | 2022-08-31 23:17 | NUR ---
Pt recvd on 1 lpm NC, no SOB or respiratory distress noted at this time. Pt placed on Bipap per MD order 20/08, rate 16, FiO2 30%. Alarms on and audible. Pt resting comfortable on bipap. RN informed.
[2022-09-01] VITALS: BP 90/59
[2022-09-01 04:00] VITALS: BP 98/61
--- NOTE | 2022-09-01 06:35 | NUR ---
This patient has been stable throughout the night, quiet. He refused his lantus as well as neurontin evening dose. His blood sugar result was overriden at 1999, which was 114. This morning his blood sugar is 86. He has been alert and orientedX4, wearing his bipap throughout the night and nasal canula at 1 liter during the day. His al is intact, draining small amounts of urine, avila in color. He has refused turns throughout the night. Bilateral leg dressing are clean, dry and intact. One BM was reported from the PROFESSOR OF FAMILY MEDICINE. This patient's bed is unable to calculate his weight and he is unwilling to be weighed any other way this morning. A call has been placed with the maintenance. Follow up planned.
[2022-09-01] MEDS: BLOOD SUGAR DIAGNOSTIC 1 EACH STRIP IN SCH ×4 (07:30→21:23)
--- NOTE | 2022-09-01 07:30 | NUR ---
SOLUTION MANAGER OPENING NOTES RECEIVED PATIENT ON BED ASLEEP. ON BIPAP TOLERATING WELL. NO SOB NOTED. NOT IN DISTRESS. WITH IV ACCESS AT THE RIGHT INTRAJUGULAR TRIPLE LUMEN, PATENT, FLUSHES WELL, DRESSING DRY AND INTACT. ON TELE MONITOR CURRENTLY READING AFIB AT 67BPM. SAFETY MEASURES IN PLACED. CALL LIGHT WITHIN REACH. BED ON LOWEST LOCKED POSITION, SIDE RAILS UP X2. WILL CONTINUE TO MONITOR.
[2022-09-01 08:00] VITALS: BP 112/69
--- NOTE | 2022-09-01 08:27 | NUR ---
Removed pt from Bipap and placed on 2L NC. SPO2 97% and tolerating.
[2022-09-01] MEDS: METOPROLOL TARTRATE 25 MG TABLET PO SCH ×2 (08:52→21:00)
[2022-09-01] MEDS: QUETIAPINE FUMARATE 25 MG TABLET PO SCH ×2 (08:52→17:05)
[2022-09-01] MEDS: ASPIRIN EC 81 MG TABLET.DR PO SCH (08:52)
[2022-09-01] MEDS: PANTOPRAZOLE 40 MG TABLET.DR PO SCH (08:53)
[2022-09-01] MEDS: HEPARIN SODIUM, PORCINE 5000 UNITS/1 ML VIAL SQ SCH ×2 (08:54→21:24)
[2022-09-01] MEDS: DAKINS HALF STRENGTH (0.25%) 480 ML BOTTLE TOP SCH (08:58)
[2022-09-01] MEDS: INSULIN REGULAR, HUMAN 100 UNIT/ML 3 ML VIAL SQ PRN ×3 (11:38→21:26)
[2022-09-01 12:00] VITALS: BP 132/68
[2022-09-01 16:00] VITALS: BP 125/65
--- NOTE | 2022-09-01 18:00 | NUR ---
RN NOTE CALLED BLOOD BANK TO FOLLOW-UP FOR PLATELET ORDER AND ANSWERED PLATELET IS NOT READY YET. THEY WILL CALL ONCE IT'S READY.
--- NOTE | 2022-09-01 18:34 | NUR ---
APPLE PICKING SUPERVISOR CLOSING NOTES PATIENT ON BED AWAKE AND A/O X4. ON ROOM AIR TOLERATING WELL. NO SOB NOTED. NOT IN DISTRESS. WITH IV ACCESS AT THE RIGHT INTRAJUGULAR TRIPLE LUMEN, PATENT, FLUSHES WELL, DRESSING DRY AND INTACT. ON TELE MONITOR CURRENTLY READING AFIB AT 68BPM. DUE MEDS GIVEN. SAFETY MEASURES IN PLACED. CALL LIGHT WITHIN REACH. BED ON LOWEST LOCKED POSITION, SIDE RAILS UP X2. WILL ENDORSE TO NEXT SHIFT FOR MAGED.
--- NOTE | 2022-09-01 19:39 | NUR ---
RN OPENING NOTE PATIENT AWAKE IN BED. A/OX4. NO S/S OF DISTRESS, BREATHING WITHOUT DIFFICULTY ON 1L NC. FEMORAL HD CATH INTACT, NO SIGNS OF BLEEDING; TL IJ INTACT AND PATENT. TELE READS AFIB CONTROLLED 73. SAFETY MEASURES IN PLACE: BED LOCKED AND AT LOWEST POSITION, RAILS UP X2, CALL YOUNG WITHIN REACH. WILL CONTINUE TO MONITOR PATIENT.
[2022-09-01 20:34] VITALS: BP 128/67
[2022-09-01] MEDS: GABAPENTIN 300 MG CAPSULE PO SCH (21:23)
[2022-09-01] MEDS: INSULIN GLARGINE, 100 UNIT/ML CARTRIDGE SQ SCH (21:25)
[2022-09-01] MEDS: HYDROCODONE/APAP 10/325MG TABLET PO PRN (23:26)
[2022-09-02 00:07] VITALS: BP 92/78
[2022-09-02 04:00] VITALS: BP 156/71
--- NOTE | 2022-09-02 05:47 | NUR ---
Pt recvd awake and verbal on 2 lpm NC, pt delayed being placed on bipap due to wanting to eat. RN was informed. Pt placed on Bipap overnight on ordered settings, Mepilex skin barrier in place, Pt removed mepilex on his own. no SOB or respiratory distress noted throughout shift. Bipap plugged into red outlet with alarms on and audible.
--- NOTE | 2022-09-02 06:59 | NUR ---
RN CLOSING NOTE PATIENT ASLEEP IN BED. A/OX4. NO S/S OF DISTRESS, BREATHING WITHOUT DIFFICULTY ON BiPAP. FEMORAL HD CATH INTACT AND WITHOUT BLEEDING; R-TRIPLE LUMEN IJ SL INTACT AND PATENT. TELE READS AFIB W/ PVCs AND BBB AT 56. SAFETY MEASURES IN PLACE: BED LOCKED AND AT LOWEST POSITION, RAILS UP X2, CALL YOUNG WITHIN REACH. WILL ENDORSE TO NEXT SHIFT FOR MAGED.
--- NOTE | 2022-09-02 07:20 | NUR ---
RN OPENING NOTE PATIENT ASLEEP IN BED. A/OX4. NO S/S OF DISTRESS AT THIS TIME, BREATHING WITHOUT DIFFICULTY ON BiPAP. FEMORAL HD CATH INTACT; R-TRIPLE LUMEN IJ SL INTACT AND PATENT. TELE READS CONTROLLED AFIB AT 62. ALL SAFETY MEASURES IN PLACE: BED LOCKED AND AT LOWEST POSITION, RAILS UP X2, CALL YOUNG WITHIN REACH. BED ALARM ON
[2022-09-02 08:00] VITALS: BP 132/77
[2022-09-02] MEDS: BLOOD SUGAR DIAGNOSTIC 1 EACH STRIP IN SCH ×4 (08:10→21:42)
[2022-09-02] MEDS: HEPARIN SODIUM, PORCINE 5000 UNITS/1 ML VIAL SQ SCH ×3 (09:00→21:30)
[2022-09-02] MEDS: METOPROLOL TARTRATE 25 MG TABLET PO SCH ×2 (09:00→21:00)
[2022-09-02] MEDS: PANTOPRAZOLE 40 MG TABLET.DR PO SCH (09:08)
[2022-09-02] MEDS: ASPIRIN EC 81 MG TABLET.DR PO SCH (09:09)
[2022-09-02] MEDS: QUETIAPINE FUMARATE 25 MG TABLET PO SCH ×3 (09:09→16:19)
[2022-09-02] MEDS: DAKINS HALF STRENGTH (0.25%) 480 ML BOTTLE TOP SCH (09:30)
--- NOTE | 2022-09-02 10:00 | NUR ---
patient screaming verbalized he is still hungry,per kitchen need to change diet,nguyễn soler notified .
[2022-09-02 12:00] VITALS: BP 127/86
[2022-09-02] MEDS: INSULIN REGULAR, HUMAN 100 UNIT/ML 3 ML VIAL SQ PRN ×3 (12:42→21:42)
[2022-09-02 16:00] VITALS: BP 131/66
--- NOTE | 2022-09-02 19:25 | NUR ---
rn closing note pt alert and oriented x4. no signs of pain/discomfort noted at this time.r femoral hd intact. r triple lume ij intact and patent. tele reads afib 86. pt on 1 l nasal cannula tolerating well at 93%. all safety measures in place. pt has al cathether draining red color output.chemical lab supervisor aware and ordered urinalysis. waiting for results. call light within reach. bed locked at lowest position. side rails up x2. bed alarm on. endorsed to fast food shift lead rn for contuirty of care
--- NOTE | 2022-09-02 19:38 | NUR ---
RN OPENING NOTES RECEIVED PT IN BED, AWAKE, WATCHING TV. AOx4, ABLE TO MAKE NEEDS KNOWN. ON NC 1LPM AND TOLERATING WELL. NO SOB NOTED. NO S/SX OF RESPIRATORY DISTRESS NOTED. TELE MONITOR DETECTS AFIC WITH RATE OF 86. IV ACCESS IN R TRIPLE LUMEN IJ AND FEMORAL HD CATHETER. SAFETY PRECAUTIONS IN PLACE: BED IN LOWEST, LOCKED POSITION, SIDERAILS UP x2, AND BRAKES ON. TABLE AND CALL LIGHT WITHIN REACH. ALL NEEDS MET AT THIS TIME.
[2022-09-02 20:00] VITALS: BP 127/60
[2022-09-02 20:35] LABS: COLOR,URINE BROWN (YELLOW)
[2022-09-02 20:38] LABS: RBC,URINE TOO NUMEROUS TO COUN /HPF (0-2)
[2022-09-02 20:39] LABS: BACTERIA,URINE 2+ /HPF (None Seen); SQUAMOUS EPITHELIAL CELL,UR 0-2 /HPF (None Seen); WBC,URINE 21-50 /HPF (0-3)
--- NOTE | 2022-09-02 21:05 | NUR ---
RN NOTES HELD METOPROLOL SINCE PATIENT IS GOING TO HAVE DIALYSIS. DIALYSIS NURSE AWARE AND CURRENTLY AT BEDSIDE.
[2022-09-02] MEDS: GABAPENTIN 300 MG CAPSULE PO SCH ×2 (21:30→21:41)
[2022-09-02] MEDS: INSULIN GLARGINE, 100 UNIT/ML CARTRIDGE SQ SCH (21:42)
--- NOTE | 2022-09-02 23:30 | NUR ---
RN NOTES PER HEMODIALYSIS NURSE, HEMODIALYSIS IS DONE AND 2 LITERS WERE REMOVED. TOLERATED WELL.
--- NOTE | 2022-09-03 00:30 | NUR ---
RN NOTE PATIENT REFUSED 0000 VITALS.
--- NOTE | 2022-09-03 03:55 | NUR ---
RN NOTE PATIENT REFUSED 399 VITAL
--- NOTE | 2022-09-03 06:44 | NUR ---
RN CLOSING NOTES PT IN BED, ASLEEP, ON NOCTURNAL BIPAP. AOx4, ABLE TO MAKE NEEDS KNOWN. ON BIPAP AND TOLERATING WELL. NO SOB NOTED. NO S/SX OF RESPIRATORY DISTRESS NOTED. TELE MONITOR DETECTS AFIB WITH RATE OF 98. IV ACCESS IN R TRIPLE LUMEN IJ AND FEMORAL HD CATHETER. HD DONE WITH 2 LITERS REMOVED. ALL ORERS CARRIED OUT. ALL NEEDS MET. PT KEPT CLEAN AND DRY. SAFETY PRECAUTIONS IN PLACE: BED IN LOWEST, LOCKED POSITION, SIDERAILS UP x2, AND BRAKES ON. TABLE AND CALL LIGHT WITHIN REACH. WILL ENDORSE TO ONCOMING SHIFT FOR MAGED.
[2022-09-03] MEDS: PANTOPRAZOLE 40 MG TABLET.DR PO SCH (07:30)
--- NOTE | 2022-09-03 07:30 | NUR ---
RN Opening Note Patient sleeping, not able to assess pts mental status. No signs of respiratory distress or discomfort. No signs of respiratory distress, no signs of IV infiltration. All safety precautions taken All safety precautions taken, call light and table within reach, bed at lowest position. Addendum: 09/03/22 at 1032 by KATELIN TSAI RN Above note is incorrect. ... Please see below... RN Opening Note Patient AOx4 able to express his concerns. Patient states no complaints, no issues, no signs of respiratory distress or discomfort. All safety precautions taken, oriented pt to unit and the use of the call light. Discussed plan of care, pt verbalized agreement. All safety precautions taken, call light and table within reach, bed at lowest position.
[2022-09-03 08:00] VITALS: BP 147/67
[2022-09-03] MEDS: ASPIRIN EC 81 MG TABLET.DR PO SCH (09:06)
[2022-09-03] MEDS: QUETIAPINE FUMARATE 25 MG TABLET PO SCH ×2 (09:07→16:18)
[2022-09-03] MEDS: METOPROLOL TARTRATE 25 MG TABLET PO SCH ×3 (09:07→21:31)
[2022-09-03] MEDS: BLOOD SUGAR DIAGNOSTIC 1 EACH STRIP IN SCH ×4 (09:10→21:50)
[2022-09-03] MEDS: HEPARIN SODIUM, PORCINE 5000 UNITS/1 ML VIAL SQ SCH ×3 (09:10→21:35)
[2022-09-03] MEDS: DAKINS HALF STRENGTH (0.25%) 480 ML BOTTLE TOP SCH (09:11)
[2022-09-03 12:00] VITALS: BP 109/76
[2022-09-03 16:00] VITALS: BP 130/73
--- NOTE | 2022-09-03 18:21 | NUR ---
RN Closing Note Patient AOx4 able to express his own concerns. No signs of respiratory distress or discomfort, no signs of IV infiltration. Provided care as needed and administered medications as prescribed. Patient remained safe throughout shift, no incidents to report. All safety precautions taken All safety precautions taken, call light and table within reach, bed at lowest position.
[2022-09-03] MEDS: INSULIN REGULAR, HUMAN 100 UNIT/ML 3 ML VIAL SQ PRN (18:27)
--- NOTE | 2022-09-03 19:10 | NUR ---
NATURAL RESOURCE OFFICER OPENING NOTES RECEIVED PT IN BED, AWAKE, WATCHING TV. AO x 4, ABLE TO MAKE NEEDS KNOWN. HE IS ON 1 LPM OXYGEN VIA NC; NO S/S OF SOB OR DISTRESS, TOLERATED WELL. PATIENT HAS TRIPLE LUMEN IJ AT HIS RIGHT SIDE; AND HD CATH AT HIS R FEMORAL. JUAN. PATIENT HAS EXTERNAL SPRUE KNOCKER, ON THE MONITOR TELE MONITOR SHOWS AFIB WITH BBB AND ST DEPRESSION. HR IS AT 80S. SAFETY PRECAUTIONS IN PLACE: BED IN LOWEST AND LOCKED POSITION; SIDE RAILS UP x 2; TABLE AND CALL LIGHT WITHIN REACH. WILL CONTINUE MONITOR THE PATIENT AND PROVIDE THE CARE PATIENT NEEDS.
[2022-09-03 20:00] VITALS: BP 125/73
[2022-09-03] MEDS: GABAPENTIN 300 MG CAPSULE PO SCH ×2 (21:31→21:56)
[2022-09-03] MEDS: INSULIN GLARGINE, 100 UNIT/ML CARTRIDGE SQ SCH (22:05)
[2022-09-03] MEDS: HYDROCODONE/APAP 10/325MG TABLET PO PRN (22:06)
[2022-09-03] MEDS: MAG HYDROX/AL HYDROX/SIMETH 30 ML UDC PO PRN (22:42)
--- NOTE | 2022-09-03 23:00 | NUR ---
TRAINING PROFESSIONAL NOTE PATIENT REFUSED TAKING MEDICATION DUE. HEPARIN WAS WASTED; NEURONTIN AND LOPRESSOR HAVE BEEN RETURNED TO THE [facility].
--- NOTE | 2022-09-03 23:27 | NUR ---
Pt placed on NOC BiPAP with ordered settings. Tolerating and comfortable. RN notified.
[2022-09-04] VITALS: BP 144/72
[2022-09-04 04:00] VITALS: BP 133/71
--- NOTE | 2022-09-04 06:02 | NUR ---
Pt removed Bipap. Tolerating at 98%.
--- NOTE | 2022-09-04 06:15 | NUR ---
FEED GRINDER NOTE JOSELIN CERDA IS 74, 240 ML OF APPLE JUICE WAS GIVEN TO THE PATIENT. PATIENT ASKED FOR 2 PACKS OF GRAM CRACKER WELL. PATIENT ATE THE CRACKERS AND DRUNK THE JUICE.
[2022-09-04 06:17] LABS: BASOPHILS % (AUTO) 0.8 % (0.0-2.0); EOSINOPHILS % (AUTO) 4.6 % (0.0-6.0); HEMATOCRIT 29 % (39-51); HEMOGLOBIN 8.7 g/dL (13.5-17.5); LYMPHOCYTES # (AUTO) 1.3 K/uL (0.8-4.8); LYMPHOCYTES % (AUTO) 23.1 % (20.0-44.0); MEAN CORPUSCULAR HGB CONC 30 g/dl (31.0-36.0); MEAN CORPUSCULAR VOLUME 80 fL (80-96); MONOCYTES # (AUTO) 0.7 K/uL (0.1-1.30); MONOCYTES % (AUTO) 12.1 % (2.0-12.0); NEUTROPHILS # (AUTO) 3.4 K/uL (1.8-8.9); NEUTROPHILS % (AUTO) 59.4 % (43.0-81.0); PLATELET COUNT (AUTO) 105 K/uL (150-450); RED BLOOD CELL COUNT(AUTO) 3.62 MIL/uL (4.5-6.0); WHITE BLOOD COUNT (AUTO) 5.8 K/uL (4.3-11.0)
[2022-09-04 06:40] LABS: CALCIUM, SERUM 7.7 mg/dL (8.5-10.1); CREATININE 3.3 mg/dL (0.6-1.3); PHOSPHORUS 4.7 mg/dL (2.5-4.9); POTASSIUM 4.5 mmol/L (3.5-5.1)
--- NOTE | 2022-09-04 07:20 | NUR ---
MARKETING PERFORMANCE ANALYST CLOSING NOTES: RECEIVED PT IN BED, AWAKE, WATCHING TV. AO x 4, ABLE TO MAKE NEEDS KNOWN. HE IS ON 1 LPM OXYGEN VIA NC; NO S/S OF SOB OR DISTRESS, TOLERATED WELL. PATIENT HAS TRIPLE LUMEN IJ AT HIS RIGHT SIDE; AND HD CATH AT HIS R FEMORAL. JUAN. PATIENT HAS EXTERNAL MORGUE KEEPER, ON THE MONITOR TELE MONITOR SHOWS AFIB WITH BBB AND ST DEPRESSION. HR IS AT 80S. SAFETY PRECAUTIONS IN PLACE: BED IN LOWEST AND LOCKED POSITION; SIDE RAILS UP x 2; TABLE AND CALL LIGHT WITHIN REACH. WILL CONTINUE MONITOR THE PATIENT AND PROVIDE THE CARE PATIENT NEEDS. Addendum: 09/04/22 at 2007 by NATALIA TRACY RN OPENING NOTES NOT CLOSING NOTES
--- NOTE | 2022-09-04 07:33 | NUR ---
ZINC ETCHER CLOSING NOTES PT IS IN BED, AWAKE, WATCHING TV. AO x 4. HE IS ON 1 LPM OXYGEN VIA NC; NO S/S OF SOB OR DISTRESS, TOLERATED WELL. PATIENT HAS TRIPLE LUMEN IJ AT HIS RIGHT SIDE; AND HD CATH AT HIS R FEMORAL. JUAN. PATIENT HAS EXTERNAL BUSINESS ATTORNEY, ON THE MONITOR TELE MONITOR SHOWS AFIB WITH BBB AND ST DEPRESSION. HR IS AT 80S. SAFETY PRECAUTIONS IN PLACE: BED IN LOWEST AND LOCKED POSITION; SIDE RAILS UP x 2; TABLE AND CALL LIGHT WITHIN REACH. WILL ENDORSE NEXT SHIFT NURSE FOR CONTINUING PATIENT CARE.
[2022-09-04 08:00] VITALS: BP 154/78
[2022-09-04] MEDS: PANTOPRAZOLE 40 MG TABLET.DR PO SCH (08:07)
[2022-09-04] MEDS: BLOOD SUGAR DIAGNOSTIC 1 EACH STRIP IN SCH ×4 (08:07→21:15)
[2022-09-04] MEDS: ASPIRIN EC 81 MG TABLET.DR PO SCH (08:33)
[2022-09-04] MEDS: QUETIAPINE FUMARATE 25 MG TABLET PO SCH ×2 (08:33→17:31)
[2022-09-04] MEDS: METOPROLOL TARTRATE 25 MG TABLET PO SCH ×2 (08:34→20:34)
[2022-09-04] MEDS: HEPARIN SODIUM, PORCINE 5000 UNITS/1 ML VIAL SQ SCH ×2 (08:35→20:37)
[2022-09-04] MEDS: DAKINS HALF STRENGTH (0.25%) 480 ML BOTTLE TOP SCH (08:49)
[2022-09-04 12:00] VITALS: BP 124/82
[2022-09-04] MEDS: INSULIN REGULAR, HUMAN 100 UNIT/ML 3 ML VIAL SQ PRN ×2 (13:25→21:22)
[2022-09-04 16:00] VITALS: BP 121/69
--- NOTE | 2022-09-04 19:25 | NUR ---
TELERN CLOSING NOTES PT IN BED, AWAKE,. AOx4, ABLE TO MAKE NEEDS KNOWN. NO SOB NOTED. NO S/SX OF RESPIRATORY DISTRESS NOTED. TELE MONITOR DETECTS AFIB WITH RATE OF 98. IV ACCESS IN R TRIPLE LUMEN IJ AND FEMORAL HD CATHETER. HD DONE WITH 2.5 LITERS REMOVED. ALL DUE MEDS GIVEN ORDERED. ALL NEEDS MET. PT KEPT CLEAN AND DRY. SAFETY PRECAUTIONS IN PLACE: BED IN LOWEST, LOCKED POSITION, SIDE RAILS UP x2, AND BRAKES ON. TABLE AND CALL LIGHT WITHIN REACH. WILL ENDORSE TO ONCOMING SHIFT FOR MAGED
--- NOTE | 2022-09-04 19:30 | NUR ---
Rn opening notes Received Pt from morning nurse. Pt is sitting in bed comfortably eating dinner. Pt is alert and orientedX4. On 2 L NC. No SOB. No S/S of distress noted. tele monitor showed afib with bbb hr at 73. al cath is inplaced and draining yellow urine. RIJ triple lumen is inplaced, intact and flushes well. R femoral HD cath is inplaced, clean and intact. Safety precautions is maintained. Bed at low position, brakes locked, side rails upX3, hob elevated, bed alarm is on and elaine light is within reach. will continue to monitor.
--- NOTE | 2022-09-04 19:59 | NUR ---
RT NOTE PT RECEIVED ON NASAL CANNULA 2 LPM. PT AWAKE/ALERT. NO RESPIRATORY DISTRESS NOTED. BIPAP @ BEDSIDE AND WILL PLACE BIPAP AT LATER TIME.
[2022-09-04 20:00] VITALS: BP 141/79
[2022-09-04] MEDS: GABAPENTIN 300 MG CAPSULE PO SCH (21:11)
[2022-09-04] MEDS: INSULIN GLARGINE, 100 UNIT/ML CARTRIDGE SQ SCH (21:23)
[2022-09-05] VITALS (7 sets, daily range): BP systolic 102–154; BP diastolic 61–82
[2022-09-05] MEDS: HYDROCODONE/APAP 10/325MG TABLET PO PRN (05:00)
--- NOTE | 2022-09-05 06:36 | NUR ---
RN closing notes Pt is resting in bed comfortably. Pt is alert and orientedX4. On Bipap. No SOB. No S/S of distress noted. tele monitor showed afib with bbb hr at 68.VS is stable. Routine meds were given as ordered. al cath is inplaced and draining yellow urine. RIJ triple lumen is inplaced, intact and flushes well. R femoral HD cath is inplaced, clean and intact. Wound care provided. Kept Pt clean, dry and comfortable. Safety precautions is maintained. Bed at low position, brakes locked, side rails upX3, hob elevated, bed alarm is on and elaine light is within reach. Will endorse to am nurse for Mirna.
--- NOTE | 2022-09-05 07:28 | NUR ---
CONFERENCE ASSISTANT OPENING NOTES Received pt asleep in bed AOX4. No signs of pain or discomfort at this time. Pt is currently on bipap and tolerating it well. Pt is PO and receives meds orally. IV access on RIJ triple lumen patent and intact. HOB elevated to pts comfort. Siderails up at all times. Call light within reach. Will anticipate needs.
[2022-09-05] MEDS: BLOOD SUGAR DIAGNOSTIC 1 EACH STRIP IN SCH ×4 (07:31→22:47)
[2022-09-05] MEDS: QUETIAPINE FUMARATE 25 MG TABLET PO SCH ×2 (08:23→16:58)
[2022-09-05] MEDS: PANTOPRAZOLE 40 MG TABLET.DR PO SCH (08:23)
[2022-09-05] MEDS: ASPIRIN EC 81 MG TABLET.DR PO SCH (08:23)
[2022-09-05] MEDS: HEPARIN SODIUM, PORCINE 5000 UNITS/1 ML VIAL SQ SCH ×3 (08:25→21:59)
[2022-09-05] MEDS: DAKINS HALF STRENGTH (0.25%) 480 ML BOTTLE TOP SCH (08:26)
[2022-09-05] MEDS: METOPROLOL TARTRATE 25 MG TABLET PO SCH ×2 (08:26→21:54)
--- NOTE | 2022-09-05 08:39 | NUR ---
PET AMBASSADOR NOTES Metorpolol held d/t pt bp 110/61. Pt refused heparin last minute and stated it's going to hurt. Offered 3x but pt still refused. Explained risks and benefits.
--- NOTE | 2022-09-05 09:49 | NUR ---
per МАРИЯ PT they WERE ABLE TO STAND UP PT. FOR FEW SECONDS YESTERDAY AND ABLE TO ZERO BED ,PT, WEIGH 518 POUNDS.
--- NOTE | 2022-09-05 09:52 | NUR ---
SPORTS DEVELOPMENT OFFICER NOTES Pt ordered extra cereal and milk from the kitchen. Gave the food to the pt and explained that he is on fluid restriction and pt verbalized understanding and still wanted the cereal and milk.
--- NOTE | 2022-09-05 10:13 | NUR ---
PROGRAM OR PROJECT ADMINISTRATOR JUAN M CONFIRMED PT BED WAS ZERO AND PT. WEIGH 518 POUNDS.CM NOTIFIED.PT. NONCOMPLIANT WITH DIET.
--- NOTE | 2022-09-05 10:48 | NUR ---
TOUR DRIVER NOTES Pt reweighed with the help of PT and pt is 369lbs. CN at bedside to witness.
--- NOTE | 2022-09-05 10:49 | NUR ---
PATIENT STANDING WITH PT ,ABLE TO ZERO BED.
--- NOTE | 2022-09-05 10:50 | NUR ---
REWEIGH PT. 369 POUNDS DOCUMENT CORRECTED MD AND CM NOTIFIED.
[2022-09-05] MEDS: INSULIN REGULAR, HUMAN 100 UNIT/ML 3 ML VIAL SQ PRN (11:25)
--- NOTE | 2022-09-05 18:35 | NUR ---
DENTAL CREAM MAKER CLOSING NOTES All due meds and tx given as ordered. All needs anticipated. Pt tolerated everything well. Currently on 2L NC and tolerating it well with O2 saturation at 97%. IV access on RIJ patent and intact. HOB elevated to pts comfort. Siderails up x2 at all times. Bed on lowest height and locked. Call light within reach. Will endorse to oncoming nurse.
--- NOTE | 2022-09-05 19:50 | NUR ---
RN opening note Received pt in bed, sleeping. Pt is alert and oriented X 4. On 2 L NC. No SOB, no S/S of distress noted. Tele monitor showed afib with bbb, and HR at 77. Garcia cath is in place, and draining yellow urine with no odor. RIJ triple lumen is in place, intact. Right femoral HD cath in place, clean and intact. Safety precautions is maintained. Bed in low position, locked, side rails up X3, HOB elevated, bed alarm is on, and call light is within reach. will continue to monitor patient.
--- NOTE | 2022-09-05 20:03 | NUR ---
RT NOTE PT RECEIVED ON 2 LPM NASAL CANNULA. PT AWAKE/ALERT. BIPAP STANDBY. WILL PLACE PT ON BIPAP AT LATER TIME. NO DISTRESS NOTED.
[2022-09-05] MEDS: GABAPENTIN 300 MG CAPSULE PO SCH (21:54)
[2022-09-05] MEDS: INSULIN GLARGINE, 100 UNIT/ML CARTRIDGE SQ SCH ×2 (22:00→22:46)
[2022-09-06] VITALS: BP 128/72
[2022-09-06 04:00] VITALS: BP 128/72
--- NOTE | 2022-09-06 07:05 | NUR ---
RN closing note Left pt in bed, sleeping. Pt is alert and oriented X 4. On 2 L NC. No SOB, no S/S of distress noted. Tele monitor showed afib . Garcia cath is in place, and draining yellow urine with no odor. RIJ triple lumen is in place, intact. Right femoral HD cath in place, clean and intact. Safety precautions is maintained. Bed in low position, locked, side rails up X3, HOB elevated, bed alarm is on, and call light is within reach. Will endorse patient to AM shift nurse for germán.
[2022-09-06] MEDS: BLOOD SUGAR DIAGNOSTIC 1 EACH STRIP IN SCH ×4 (07:50→21:30)
[2022-09-06 08:00] VITALS: BP 157/82
[2022-09-06] MEDS: QUETIAPINE FUMARATE 25 MG TABLET PO SCH ×2 (08:56→16:12)
[2022-09-06] MEDS: METOPROLOL TARTRATE 25 MG TABLET PO SCH ×2 (08:56→21:05)
[2022-09-06] MEDS: ASPIRIN EC 81 MG TABLET.DR PO SCH (08:56)
[2022-09-06] MEDS: DAKINS HALF STRENGTH (0.25%) 480 ML BOTTLE TOP SCH (08:57)
[2022-09-06] MEDS: HEPARIN SODIUM, PORCINE 5000 UNITS/1 ML VIAL SQ SCH ×2 (08:57→21:07)
[2022-09-06] MEDS: PANTOPRAZOLE 40 MG TABLET.DR PO SCH (09:02)
[2022-09-06 09:03] LABS: BASOPHILS # (AUTO) 0.1 K/uL (0.0-0.2); BASOPHILS % (AUTO) 0.8 % (0.0-2.0); EOSINOPHILS % (AUTO) 3.8 % (0.0-6.0); HEMATOCRIT 31 % (39-51); HEMOGLOBIN 9.1 g/dL (13.5-17.5); LYMPHOCYTES # (AUTO) 1.3 K/uL (0.8-4.8); LYMPHOCYTES % (AUTO) 17.9 % (20.0-44.0); MEAN CORPUSCULAR HGB CONC 30 g/dl (31.0-36.0); MEAN CORPUSCULAR VOLUME 80 fL (80-96); MONOCYTES # (AUTO) 0.6 K/uL (0.1-1.30); MONOCYTES % (AUTO) 8.9 % (2.0-12.0); NEUTROPHILS # (AUTO) 4.9 K/uL (1.8-8.9); NEUTROPHILS % (AUTO) 68.6 % (43.0-81.0); PLATELET COUNT (AUTO) 121 K/uL (150-450); RED BLOOD CELL COUNT(AUTO) 3.81 MIL/uL (4.5-6.0); WHITE BLOOD COUNT (AUTO) 7.1 K/uL (4.3-11.0)
[2022-09-06 09:12] LABS: CALCIUM, SERUM 7.9 mg/dL (8.5-10.1); CREATININE 3.5 mg/dL (0.6-1.3); MAGNESIUM 2.1 mg/dL (1.8-2.4); PHOSPHORUS 5.8 mg/dL (2.5-4.9); POTASSIUM 5.1 mmol/L (3.5-5.1)
--- NOTE | 2022-09-06 09:45 | NUR ---
RN NOTE PATIENT REFUSED THE HEPARIN AND SAID IT HURTS. MEDCIATION WAS ALREADY SCANNED AND DRAWN
[2022-09-06 12:00] VITALS: BP 114/57
[2022-09-06 16:00] VITALS: BP 155/78
--- NOTE | 2022-09-06 18:31 | NUR ---
RN Closing Notes Patient alert oriented x4. Patient on NC 2 Liters o2 sat 98%. All due meds given as ordered. HD done and 3000 fluid removed. All needs anticipated. Pt tolerated everything well. IV access on RIJ patent and intact with the new dressing change today. HOB elevated to pts comfort. Siderails up x4 at all times. Bed on lowest position and locked. Call light within reach. Will endorse to hourly shift nurse.
[2022-09-06] MEDS: INSULIN REGULAR, HUMAN 100 UNIT/ML 3 ML VIAL SQ PRN ×2 (18:57→21:24)
--- NOTE | 2022-09-06 19:34 | NUR ---
RN opening note Received pt in bed AAOX 4. On 2L O2 VIA NC domonique well satting 98%,No SOB/distress noted.Garcia cath is in place, and draining yellow urine with no odor. RIJ triple lumen is in place, intact. Right femoral HD cath in place,patent and intact. Safety precautions is maintained. Bed in low position, locked, side rails up X3, HOB elevated, bed alarm is on, and call light is within reach. will continue to monitor.
[2022-09-06 20:00] VITALS: BP 162/78
[2022-09-06] MEDS: GABAPENTIN 300 MG CAPSULE PO SCH (21:06)
[2022-09-07] VITALS: BP 152/89
[2022-09-07 04:00] VITALS: BP 166/62
--- NOTE | 2022-09-07 06:19 | NUR ---
RN Closing Note; Patient in bed AAOX 4,Able to make needs known. On 2L O2 VIA NC domonique well satting 97%,No SOB/distress noted.Due meds given as order,All needs attended,Garcia cath is in place, and draining yellow urine with no odor. RIJ triple lumen is in place, intact. Right femoral HD cath in place,patent and intact. Safety precautions is maintained. Bed in low position, locked, side rails up X3, HOB elevated, bed alarm is on, and call light is within reach. will endorsed to next shift.
[2022-09-07] MEDS: BLOOD SUGAR DIAGNOSTIC 1 EACH STRIP IN SCH ×4 (06:42→22:56)
[2022-09-07 08:00] VITALS: BP 149/89
[2022-09-07] MEDS: ASPIRIN EC 81 MG TABLET.DR PO SCH (08:12)
[2022-09-07] MEDS: PANTOPRAZOLE 40 MG TABLET.DR PO SCH (08:12)
[2022-09-07] MEDS: METOPROLOL TARTRATE 25 MG TABLET PO SCH ×2 (08:13→21:53)
[2022-09-07] MEDS: QUETIAPINE FUMARATE 25 MG TABLET PO SCH ×2 (08:13→16:09)
[2022-09-07] MEDS: HEPARIN SODIUM, PORCINE 5000 UNITS/1 ML VIAL SQ SCH ×2 (08:13→21:00)
[2022-09-07] MEDS: DAKINS HALF STRENGTH (0.25%) 480 ML BOTTLE TOP SCH (08:14)
[2022-09-07] MEDS: HYDROCODONE/APAP 10/325MG TABLET PO PRN (10:21)
[2022-09-07 12:00] VITALS: BP 143/77
--- NOTE | 2022-09-07 12:23 | NUR ---
SS consult: SS Consult requested for homelessness referrals. The pt. is [id number] male pt. who was admitted to [facility] due to CHF flare up per EMR. Upon SS consult, the pt. is Alert & Oriented x 4 and makes good eye contact. The pt. appears unkempt. Pt. has depressed mood & affect. Pt.s speech is clear and thought process is WNL. Pt. remained calm & cooperative throughout interview. Pt. denies SI/HI and denies hallucinations. PAULINE explored pt.s living situation. Per pt. he is currently experiencing homelessness and was staying at his friends house because he was feeling sick. Per pt. his friend brought him to the hospital. SW explored pt.s drug & ETOH use. Pt. states he uses meth daily for the past 30 years and uses PCP about every 4-5 days. SW offered pt. referral to rehab facility and pt. accepted resources. SW provided psychoeducation on drug dependence. Per pt. he has a Hx. of schizoaffective disorder and is not currently taking medications for his mental health but has been prescribed Wellbutrin and Seroquel in the past. Per pt. he receives dialysis 3x/week. The pt. stated he uses a motorized wheelchair which is at bedside and independent with some of his ADLs. Pt. states he receives food stamps and SSDI. Plan: Per pt. he does not believe he can go to a rehab due to his dialysis needs. Per CM notes, they are working on chair time and SNF placement. PAULINE provided pt. with the following addiction resources and pt. accepted them: Pt. signed homeless waiver and it was placed in the pt.s chart. [facility] list : [facility]; [facility] Adult WSP site; [facility] Adult WSP site; and [facility] Adult WSP site; instruction to call 211 for availability. Year-round shelters: [facility] [address] [place] [address] ; [facility] [address] [place] [address]; [facility] [id number] [facility] [address] Hygiene: [facility] [address] [address] ; [facility] [address] [facility] ; [facility] [address], [place] Maria E . Food Resources: [facility]- [address] [place]; Meet Each Need with Dignity ([facility]) [address] [place]; [facility] [address] [facility]; [facility] [address] [facility]. Mental Health resources provided: [facility] [address] [place], [place] [address] ; [facility] [address] [facility] [address], [place], [place] [phone] ; [facility] [address] [place], [place] [phone] ; [facility] [place], [place] [phone] Healthcare Clinics: [facility] [address] [facility] [place], [address] [place]. [place] ; [facility] [address] [place] [address]; [facility] [place] [address] [facility]. [place] [phone] Counseling--Outpatient [facility] [address], [place] [address] (Specializes in in-depth psychotherapy for emotional distress: anxiety, depression, interpersonal conflicts, life transitions, childhood abuse) [facility] [address] [place], [place] [phone] (Assist with solving problem marital difficulties, separation & divorce, aging parents, & grief, chronic & terminal illness) [facility] [address] [place], [place] [phone] (Deal with loss & grief, anxiety, marital difficulties) Homebound/Mental Health Services [address] [facility], [address] [place] [address] (Provide in-home mental services to people who are incapable of leaving their homes) [facility] [address] [place] [address] [facility] [address] [place] [address] PSYCHIATRIC OUTPATIENT SERVICES [facility] Partial Hospitalization and Intensive Outpatient Program (Managed Care and [place] Only)[address] [facility] [phone] [facility] Partial Hospitalization and Outpatient [id number] [place], [place] [phone] [facility] [place] [id number] [place], [place] [phone] [facility] Partial Hospitalization and Outpatient Swuctew[address] [place], [phone] Substance Abuse resources provided included: [facility] Substance Abuse Self-Helpline ([facility]) ; [facility] [address] [facility]. [place] [phone] ; [facility] [address] [facility] [address] ; [facility] [address] [facility] [address] ; [facility] [address] [facility] [address] ; [facility] [address] [facility] [address] ; [facility] [address] [facility] [address] ; [facility] Substance Abuse Helpline([facility] ; [facility] ; [facility]; [facility]; [facility] [place]; [facility] Shadi Sanderson; [facility] [place]; [facility] [place]; [facility] [place]; [facility], [facility]. Krista Gonzales; Alcoholics Anonymous -[facility]; Cq-Jwyv-Jrdgttr ; Marijuana Anonymous [facility]; Narcotics Anonymous www.na.org;
[2022-09-07 16:00] VITALS: BP 126/62
[2022-09-07] MEDS: INSULIN REGULAR, HUMAN 100 UNIT/ML 3 ML VIAL SQ PRN (17:56)
--- NOTE | 2022-09-07 18:35 | NUR ---
RN Closing Notes Patient alert oriented x4. Patient on NC 2 Liters o2 sat 96%. All due Meds given as ordered. Daily HD done and 3000 fluid removed. All needs anticipated. Pt tolerated everything well. IV access on RIJ patent and intact with the new dressing change today. Right femoral cath for HD dressing change today by dialysis nurse and I. HOB elevated to pts comfort. Shine rails up x4 at all times. Bed on lowest position and locked. Call light within reach. Will endorse to night time nanny nurse.
--- NOTE | 2022-09-07 19:45 | NUR ---
RN OPENING NOTE RECEIVED PATIENT IN BED; AWAKE, ALERT AND ORIENTED X 4. ON O2 INHALATION @ 2 LPM VIA NASAL CANNULA; TOLERATING WELL SATURATING @ 99%. NOT IN ANY FORM OF RESPIRATORY OR CARDIAC DISTRESS NOTED. DENIES ANY PAIN OR DISCOMFORT AT THIS TIME. ON TELE MONITORING WITH READING OF ATRIAL FIBRILLATION HR-67 BPM. WITH RIGHT IJ TRIPLE LUMEN IN PLACE; PATENT AND INTACT. WITH BURNETT CATH IN PLACE DRAINING BY GRAVITY TO YELLOW URINE OUTPUT. WITH RIGHT FEMORAL HD CATH IN PLACE; INTACT. ABLE TO MAKE NEEDS KNOWN. SAFETY MEASURES IMPLEMENTED: HEAD OF BED ELEVATED, CALL LIGHT AND TABLE WITHIN REACH, SIDE RAILS UP X 2, BED IN LOWEST LOCKED POSITION. WILL CONTINUE TO MONITOR.
[2022-09-07 20:00] VITALS: BP 134/71
--- NOTE | 2022-09-07 21:30 | NUR ---
Pt placed on Bipap per MD order, Pt comfortable. Bipap is plugged into red outlet with alarms on and audible. RN informed. Addendum: 09/07/22 at 2149 by VAN BROWNING RT Mepilex skin barrier in place under bipap mask.
--- NOTE | 2022-09-07 21:54 | NUR ---
RN NOTE HEPARIN 1 ML SQ HELD; PATIENT FOR PERMACATH PLACEMENT TOMORROW 09/08/[address] DONALDSON.
[2022-09-07] MEDS: INSULIN GLARGINE, 100 UNIT/ML CARTRIDGE SQ SCH (22:50)
[2022-09-07] MEDS: GABAPENTIN 300 MG CAPSULE PO SCH (22:56)
--- NOTE | 2022-09-07 23:13 | NUR ---
RN NOTE BS-217 MG/DL. REGULAR INSULIN 4 UNITS AND INSULIN LANTUS 20 UNITS SQ HELD. WILL BE PLACE NPO POST MIDNIGHT. FOR PERMACATH PLACEMENT TOMORROW 09/08/[address] DONALDSON.
[2022-09-08] VITALS (7 sets, daily range): BP systolic 110–141; BP diastolic 46–81
--- NOTE | 2022-09-08 04:00 | NUR ---
RN NOTE PATIENT REFUSED PICTURES TO BE TAKEN ON HIS BILATERAL LOWER EXTREMITY 3X. PATIENT REFUSED TO HAVE DIAPER AND LINEN CHANGE.
--- NOTE | 2022-09-08 04:10 | NUR ---
Pt requested to be taken off Bipap. Pt placed on 1 lpm NC. RN aware
--- NOTE | 2022-09-08 06:45 | NUR ---
RN CLOSING NOTE PATIENT IN BED; AWAKE, A/O X 4. ON O2 INHALATION @ 2 LPM VIA NASAL CANNULA; TOLERATING WELL SATURATING @ 97%. IN NO ACUTE DISTRESS. DENIES ANY PAIN OR DISCOMFORT AT THIS TIME. ON TELE MONITORING WITH READING OF ATRIAL FIBRILLATION/ A FLUTTER HR-68 BPM. WITH RIGHT IJ TRIPLE LUMEN IN PLACE; PATENT AND INTACT. WITH BURNETT CATH IN PLACE DRAINING BY GRAVITY TO YELLOW URINE OUTPUT. WITH RIGHT FEMORAL HD CATH IN PLACE; INTACT. ALL NEEDS ATTENDED. SAFETY MEASURES MAINTAINED: HEAD OF BED ELEVATED, CALL LIGHT AND TABLE WITHIN REACH, SIDE RAILS UP X 2, BED IN LOWEST LOCKED POSITION. ENDORSED TO MORNING SHIFT FOR MAGED.
[2022-09-08] MEDS ORDERED: ANESTHESIA TRAY IN PYXIS 1 EA TRAY MC ONE (07:17)
[2022-09-08] MEDS: BLOOD SUGAR DIAGNOSTIC 1 EACH STRIP IN SCH ×4 (07:30→22:16)
[2022-09-08] MEDS ORDERED: IOHEXOL 50 ML IV ONE (07:32)
[2022-09-08] MEDS ORDERED: LIDOCAINE HCL/MPF 1% 30 ML VIAL IJ ONE (07:32)
[2022-09-08] MEDS ORDERED: HEPARIN SODIUM, PORCINE 1,000 UNIT/ML VIAL ONE (07:32)
[2022-09-08] MEDS: DAKINS HALF STRENGTH (0.25%) 480 ML BOTTLE TOP SCH (09:00)
[2022-09-08] MEDS ORDERED: FENTANYL PF 100MCG/2ML AMPUL ONE (10:09)
--- NOTE | 2022-09-08 11:12 | NUR ---
patient received from OR ,resume food and meds. patient screaming wants regular food and not renal,md notified and oredred regular diet,dietary notified.
[2022-09-08 14:01] LABS: CALCIUM, SERUM 7.9 mg/dL (8.5-10.1); CREATININE 2.6 mg/dL (0.6-1.3)
[2022-09-08 14:06] LABS: ALBUMIN 2.6 g/dL (3.4-5.0); BILIRUBIN,TOTAL 0.4 mg/dL (0.2-1.0); TOTAL PROTEIN, SERUM 7.7 g/dL (6.4-8.2)
--- NOTE | 2022-09-08 16:15 | NUR ---
Rt Femoral temporary catheter removed with tip of catheter intact as ordered by Dr Ramos via aseptic technique, pressure applied to rt groin X 10 mins No hematoma/ bleeding noted to site, gauze dressing applied, Khanh at bedside instruction given to check on the site for hematoma/ bleeding q 15 mins x 2, verbalized understanding. Instructed pt not to bend rt leg and to inform nurse of any pain or discomfort, verbalized understanding.
[2022-09-08] MEDS: PANTOPRAZOLE 40 MG TABLET.DR PO SCH (16:54)
[2022-09-08] MEDS: QUETIAPINE FUMARATE 25 MG TABLET PO SCH ×2 (16:54→17:00)
[2022-09-08] MEDS: ASPIRIN EC 81 MG TABLET.DR PO SCH (16:54)
[2022-09-08] MEDS: METOPROLOL TARTRATE 25 MG TABLET PO SCH ×2 (16:57→21:05)
[2022-09-08] MEDS: CLINDAMYCIN 900 MG in IV D5W 50 ML IV SCH (16:58)
[2022-09-08] MEDS ORDERED: ANCEF 1 GM/50 ML D5W IV SCH ×2 (17:00)
[2022-09-08] MEDS: HYDROCODONE/APAP 10/325MG TABLET PO PRN (18:27)
--- NOTE | 2022-09-08 18:42 | NUR ---
patient was in surgery unable to do wound care,pt. refused,unable to do accucheck am and noon pt. in OR.
--- NOTE | 2022-09-08 18:56 | NUR ---
pt is alert, orientedx4, pthad dialysis via perma catheter, after dialysis removed colleen catheter by dialysis nurse, pressure dressing and check after that [id number], q 30min no s/s of bleeding or any hematoma, removed water 3L today, given morning and all medication 5pm d/t pt went to procedure for perma catheter and came back from that he had dialysis, and pt was tolerated very well, and acucheck 630pm BS 167, not given insulin d/t BS check was after eat, given pain medication norco 10mg after 6pm d/t pt has legs and back, groin 05/06, pt stallworth no any s/s of side effect of any medication, no s/s of respiratory or any distress noted, bed is high d/t it is not working. reported charge nurse, call light within reach. wheels of bed is locked
--- NOTE | 2022-09-08 19:22 | NUR ---
noc rn opening note received patient in a geriatric bed, a/ox4. no s/s of apparent distress on room air. no c/o pain at this time. rt. femoral dressing clean, dry, intact with no bleeding noted. rt. IJ perma cath noted in place, with clean, dry, and intact dressing. al cath draining avila urine with sediments noted. reading A-fib/A-flutter on the tele monitor with 68 bpm. patient Clindamycin still running at this time. safety put into place. will continue with the plan of care for patient.
--- NOTE | 2022-09-08 20:08 | NUR ---
noc rn note 1730 accucheck non-administered. not done by registry d/t patient being in OR per report.
[2022-09-08] MEDS: GABAPENTIN 300 MG CAPSULE PO SCH (22:06)
[2022-09-08] MEDS: INSULIN GLARGINE, 100 UNIT/ML CARTRIDGE SQ SCH (22:19)
[2022-09-08] MEDS: INSULIN REGULAR, HUMAN 100 UNIT/ML 3 ML VIAL SQ PRN (22:20)
[2022-09-09] VITALS: BP 132/70
[2022-09-09] MEDS: CLINDAMYCIN 900 MG in IV D5W 50 ML IV SCH (01:16)
--- NOTE | 2022-09-09 01:54 | NUR ---
Pt recvd start of shift on room air, spo2 92%. declined bipap til after midnight. RN was made aware. Bipap initiated at 00:55. RN aware. Bipap is plugged into red outlet with alarms on and audible.
[2022-09-09 04:00] VITALS: BP 140/79
[2022-09-09 06:55] LABS: ALBUMIN 2.4 g/dL (3.4-5.0); BILIRUBIN,TOTAL 0.4 mg/dL (0.2-1.0); CALCIUM, SERUM 7.9 mg/dL (8.5-10.1); CREATININE 2.4 mg/dL (0.6-1.3); POTASSIUM 4.7 mmol/L (3.5-5.1); TOTAL PROTEIN, SERUM 7.3 g/dL (6.4-8.2)
--- NOTE | 2022-09-09 07:00 | NUR ---
received endorsement, pt's BS 7am 99, no insulin administered 2pm BS 162, pt had lunch no insulin given
--- NOTE | 2022-09-09 07:26 | NUR ---
noc rn closing note patient in bed with eyes closed, easy to arouse. BiPap still on patient per his request to leave it on. no s/s of apparent distress on his BiPAP. denies pain at this time. no fluids running at this time. all needs attended. all scheduled medications administered. call light within reach. safety in place. Endorsed to ENZO hernandez for continuity of patient care.
[2022-09-09] MEDS: BLOOD SUGAR DIAGNOSTIC 1 EACH STRIP IN SCH ×4 (07:30→21:31)
[2022-09-09] MEDS: PANTOPRAZOLE 40 MG TABLET.DR PO SCH (07:50)
[2022-09-09 08:00] VITALS: BP 131/56
[2022-09-09] MEDS: DAKINS HALF STRENGTH (0.25%) 480 ML BOTTLE TOP SCH (09:00)
[2022-09-09 12:00] VITALS: BP 136/77
[2022-09-09] MEDS: QUETIAPINE FUMARATE 25 MG TABLET PO SCH ×2 (14:00→18:24)
[2022-09-09] MEDS: METOPROLOL TARTRATE 25 MG TABLET PO SCH ×2 (14:00→21:31)
[2022-09-09] MEDS: ASPIRIN EC 81 MG TABLET.DR PO SCH (14:00)
[2022-09-09] MEDS: HYDROCODONE/APAP 10/325MG TABLET PO PRN (14:02)
[2022-09-09 16:00] VITALS: BP 122/56
--- NOTE | 2022-09-09 17:41 | NUR ---
pt is on the bed,n
--- NOTE | 2022-09-09 17:49 | NUR ---
pt is on the bed, is alert, orientedx4, pt had dialysis and removed water 3L out, and urin out 1100, pt 's BS 7:30 am 99, no given insulin, and 162 after lunch , not given insulin, and 5:30pm BS 126, not given insulin, pt took all medication around 12pm d/t pt had dialysis in the morning, pt is stable, and dialysis nurse changed dressing on perma catheter d/t dressing was open some place, pt's v/s is ok and no any respitatory distress, any discomfort noted, and he had hematuria in the morning, but afternoon his urin is better a little blood included he said he did not pull out urin catheter nothing problem, and his urine bag was leaking and changed urine bag, call light within reach, bed wheels locked, 3 side rails up
--- NOTE | 2022-09-09 19:29 | NUR ---
HIV PREVENTION SPECIALIST OPENING NOTE RECEIVED PT AWAKE IN BED. A/O X4 AND ABLE TO MAKE NEEDS KNOWN. PT ON O2 @ 2LPM VIA NC, TOLERATING WELL. NO SOB OR S/S OF RESPIRATORY DISTRESS. BREATHING EVEN AND UNLABORED. ON EXTERNAL BINDERY MACHINE SETTER/SET UP OPERATOR READING A FIB WITH BBB 68 BPM. IV ACCESS LOVE MIDLINE AND RIJ PERMACATH, INTACT AND PATENT. WITH BURNETT CATHETER DRAINING URINE BY GRAVITY. SAFETY PRECAUTIONS IN PLACE. BED IN LOWEST LOCKED POSITION, HOB ELEVATED, SIDE RAILS UP X3, AND CALL LIGHT AND TABLE WITHIN REACH. ALL NEEDS MET AT THIS TIME.
[2022-09-09 20:04] VITALS: BP 126/58
[2022-09-09] MEDS: GABAPENTIN 300 MG CAPSULE PO SCH (21:30)
[2022-09-09] MEDS: INSULIN GLARGINE, 100 UNIT/ML CARTRIDGE SQ SCH (21:33)
[2022-09-09] MEDS: INSULIN REGULAR, HUMAN 100 UNIT/ML 3 ML VIAL SQ PRN (21:34)
[2022-09-10] VITALS: BP 103/63
[2022-09-10 04:00] VITALS: BP 124/87
--- NOTE | 2022-09-10 05:44 | NUR ---
RN NOTE PT REFUSING BED BATH AND LINEN CHANGE. PT STATED HE DID NOT HAVE A BOWEL MOVEMENT AND WANTS TO BE LEFT ALONE. ATTEMPTED TO EXPLAIN THE IMPORTANCE OF HYGIENE BUT PT REFUSED TO LISTEN AND TOLD US TO LEAVE HIM ALONE.
--- NOTE | 2022-09-10 06:32 | NUR ---
BUSINESS PROCESS MANAGER CLOSING NOTE PT RESTING IN BED, VERBALLY RESPONSIVE. A/O X4 AND ABLE TO MAKE NEEDS KNOWN. PT ON BIPAP, TOLERATING WELL. NO SOB OR S/S OF RESPIRATORY DISTRESS. BREATHING EVEN AND UNLABORED. ON EXTERNAL DEPARTMENT SECRETARY READING A FIB WITH BBB 58 BPM. IV ACCESS LOVE MIDLINE AND RIJ PERMACATH, INTACT AND PATENT. WITH BURNETT CATHETER DRAINING URINE BY GRAVITY, DRAINED 250 ML THIS SHIFT. ALL DUE MEDS GIVEN ORDERED. REFUSED BED BATH AND LINEN CHANGE ALL SHIFT. SAFETY PRECAUTIONS IN PLACE AT ALL TIMES. BED IN LOWEST LOCKED POSITION, HOB ELEVATED, SIDE RAILS UP X3, AND CALL LIGHT AND TABLE WITHIN REACH. ALL NEEDS MET AT THIS TIME AND WILL ENDORSE TO ONCOMING NURSE FOR MAGED.
[2022-09-10 08:00] VITALS: BP 131/71
[2022-09-10] MEDS: QUETIAPINE FUMARATE 25 MG TABLET PO SCH ×2 (08:25→17:46)
[2022-09-10] MEDS: PANTOPRAZOLE 40 MG TABLET.DR PO SCH (08:25)
[2022-09-10] MEDS: ASPIRIN EC 81 MG TABLET.DR PO SCH (08:25)
[2022-09-10] MEDS: BLOOD SUGAR DIAGNOSTIC 1 EACH STRIP IN SCH ×4 (08:26→21:55)
[2022-09-10] MEDS: METOPROLOL TARTRATE 25 MG TABLET PO SCH ×2 (08:26→21:55)
[2022-09-10] MEDS: HYDROCODONE/APAP 10/325MG TABLET PO PRN ×2 (08:35→21:29)
[2022-09-10] MEDS: DAKINS HALF STRENGTH (0.25%) 480 ML BOTTLE TOP SCH (08:36)
[2022-09-10 12:00] VITALS: BP 127/60
[2022-09-10] MEDS: INSULIN REGULAR, HUMAN 100 UNIT/ML 3 ML VIAL SQ PRN ×3 (12:13→22:01)
[2022-09-10 14:42] LABS: CALCIUM, SERUM 7.7 mg/dL (8.5-10.1); CREATININE 2.3 mg/dL (0.6-1.3); POTASSIUM 4.5 mmol/L (3.5-5.1)
[2022-09-10 14:47] LABS: ALBUMIN 2.4 g/dL (3.4-5.0); BILIRUBIN,TOTAL 0.4 mg/dL (0.2-1.0); TOTAL PROTEIN, SERUM 7.4 g/dL (6.4-8.2)
[2022-09-10 16:00] VITALS: BP 137/65
--- NOTE | 2022-09-10 18:57 | NUR ---
RN Closing Notes Patient alert oriented x4. Patient on NC 2 Liters o2 sat 97%. All due Meds given as ordered. Daily HD done and 3000 fluid removed. All needs anticipated. Pt tolerated everything well. IV access on RIJ patent and intact. HOB elevated to pts comfort. Shine rails up x4 at all times. Bed on lowest position and locked. Call light within reach. Will endorse to restaurant shift supervisor nurse.
--- NOTE | 2022-09-10 19:58 | NUR ---
RN OPENING NOTES RECEIVED PT IN BED, ASLEEP, AWAKENS TO VERBAL STIMULI. AOx4. ON NC 2LPM AND TOLERATING WELL. NO SOB NOTED. NO S/SX OF RESPIRATORY DISTRESS NOTED. TELE MONITOR DETECTS AFIB WITH BBB AND RATE OF 50s. IV ACCESS IN CATHY MIDLINE AND RIJ PERMACATH. IV IS INTACT, PATENT, AND FLUSHING WELL. SAFETY PRECAUTIONS IN PLACE: BED IN LOWEST, LOCKED POSITION, SIDERAILS UPx2, AND BRAKES ON. TABLE AND CALL LIGHT WITHIN REACH. ALL NEEDS MET AT THIS TIME.
[2022-09-10 20:00] VITALS: BP 137/73
[2022-09-10] MEDS: GABAPENTIN 300 MG CAPSULE PO SCH (21:29)
[2022-09-10] MEDS: INSULIN GLARGINE, 100 UNIT/ML CARTRIDGE SQ SCH (22:00)
[2022-09-10] MEDS ORDERED: POLYETHYLENE GLYCOL 3350 17 GM POWD.PACK PO PRN (22:30)
--- NOTE | 2022-09-10 23:42 | NUR ---
Pt placed on BiPAP with ordered settings. RN notified.
[2022-09-11] VITALS: BP 134/72
[2022-09-11 04:00] VITALS: BP 142/74
--- NOTE | 2022-09-11 06:40 | NUR ---
RN CLOSING NOTES PT IN BED, ASLEEP, AWAKENS TO VERBAL STIMULI. AOx4. ON NOCTURNAL BIPAP AND TOLERATING WELL. NO SOB NOTED. NO S/SX OF RESPIRATORY DISTRESS NOTED. TELE MONITOR DETECTS AFIB WITH BBB AND RATE OF 50s. IV ACCESS IN CATHY MIDLINE AND RIJ PERMACATH. IV IS INTACT, PATENT, AND FLUSHING WELL. ALL ORDERS CARRIED OUT. ALL NEEDS MET. PT KEPT CLEAN AND DRY. SAFETY PRECAUTIONS IN PLACE: BED IN LOWEST, LOCKED POSITION, SIDERAILS UPx2, AND BRAKES ON. TABLE AND CALL LIGHT WITHIN REACH. WILL ENDORSE TO ONCOMING SHIFT FOR MAGED.
[2022-09-11 08:00] VITALS: BP 167/85
[2022-09-11] MEDS: BLOOD SUGAR DIAGNOSTIC 1 EACH STRIP IN SCH ×4 (08:15→21:22)
[2022-09-11] MEDS: QUETIAPINE FUMARATE 25 MG TABLET PO SCH ×2 (08:55→16:35)
[2022-09-11] MEDS: PANTOPRAZOLE 40 MG TABLET.DR PO SCH (08:55)
[2022-09-11] MEDS: METOPROLOL TARTRATE 25 MG TABLET PO SCH ×2 (08:56→21:00)
[2022-09-11] MEDS: ASPIRIN EC 81 MG TABLET.DR PO SCH (08:56)
[2022-09-11] MEDS: DAKINS HALF STRENGTH (0.25%) 480 ML BOTTLE TOP SCH (08:57)
--- NOTE | 2022-09-11 10:00 | NUR ---
RN NOTE PATIENT REFUSES THE MORNING LAB. PATIENT HAS CATHY MIDLINE BUT UNABLE TO DRAW BLOOD. WILL ASK THE DIALYSIS NURSE.
[2022-09-11 12:00] VITALS: BP 141/80
[2022-09-11 16:00] VITALS: BP 139/61
--- NOTE | 2022-09-11 18:47 | NUR ---
RN Closing Notes Patient alert oriented x4. Patient on NC 2 Liters o2 sat 98%. All due Meds given as ordered. All needs anticipated. Pt tolerated everything well. IV access CATHY #18 patent and intact. HOB elevated to pts comfort. Shine rails up x4 at all times. Bed on lowest position and locked. Call light within reach. Will endorse to warehouse worker 2nd shift nurse.
[2022-09-11 20:00] VITALS: BP 135/75
--- NOTE | 2022-09-11 20:16 | NUR ---
19:11 Patient in bed, dialysis treatment in progress. Per RN Neli patient refused am lab and will re sched for tomorrow. Dialysis Nurse was not informed earlier prior start dialysis treatment as blood sample not drawn for test.
--- NOTE | 2022-09-11 20:36 | NUR ---
HEMODIALYSIS Patient tolerated dialysis treatment, 2.5L output.
[2022-09-11] MEDS: INSULIN GLARGINE, 100 UNIT/ML CARTRIDGE SQ SCH (21:29)
[2022-09-11] MEDS: GABAPENTIN 300 MG CAPSULE PO SCH (21:32)
--- NOTE | 2022-09-11 21:33 | NUR ---
REFUSED MEDICATION Patient refused Metoprolol and Neurontin medication, declined education. Medication discarded as packet was opened.
[2022-09-11] MEDS: INSULIN REGULAR, HUMAN 100 UNIT/ML 3 ML VIAL SQ PRN (21:40)
[2022-09-12] VITALS: BP 137/80
[2022-09-12 04:00] VITALS: BP 137/80
--- NOTE | 2022-09-12 07:13 | NUR ---
END OF SHIRT REPORT Patient in bed, Alert Oriented x4. Afib controlled in the Tele monitor HR 60's. BIPAP at night, denies sob. CATHY midline intact. Right chest wall Perma cath dressing C/D/I no bleeding. Garcia cath draining, output 600ml yellow cloudy. BLE wound dressing in place. Patient refused am lab. Declined education, uncooperative with treatment. Hemodialysis as scheduled. Pending placement to SNF. Endorsed to ENZO Quinteros.
[2022-09-12 08:00] VITALS: BP 137/86
[2022-09-12] MEDS: QUETIAPINE FUMARATE 25 MG TABLET PO SCH ×2 (08:27→16:22)
[2022-09-12] MEDS: PANTOPRAZOLE 40 MG TABLET.DR PO SCH (08:27)
[2022-09-12] MEDS: ASPIRIN EC 81 MG TABLET.DR PO SCH (08:27)
[2022-09-12] MEDS: METOPROLOL TARTRATE 25 MG TABLET PO SCH ×2 (08:27→21:10)
[2022-09-12] MEDS: BLOOD SUGAR DIAGNOSTIC 1 EACH STRIP IN SCH ×4 (08:28→21:14)
[2022-09-12] MEDS: DAKINS HALF STRENGTH (0.25%) 480 ML BOTTLE TOP SCH (08:28)
[2022-09-12 10:45] LABS: CALCIUM, SERUM 7.6 mg/dL (8.5-10.1); CREATININE 1.7 mg/dL (0.6-1.3); POTASSIUM 3.9 mmol/L (3.5-5.1)
[2022-09-12 10:51] LABS: ALBUMIN 2.4 g/dL (3.4-5.0); BILIRUBIN,TOTAL 0.4 mg/dL (0.2-1.0)
[2022-09-12 12:00] VITALS: BP 126/51
[2022-09-12] MEDS: INSULIN REGULAR, HUMAN 100 UNIT/ML 3 ML VIAL SQ PRN ×2 (12:59→21:17)
[2022-09-12] MEDS ORDERED: HYDROMORPHONE MDV 1 MG in IV D5W 50 ML IV PRN (14:30)
--- NOTE | 2022-09-12 14:30 | NUR ---
RN NOTE PATIENT REFUSED THE PT IN THE MORNING. AROUND 1300 PATIENT ASKED FOR SITTING AT THE EDGE OF THE BED. I CALLED PT THEY SAID ONCE HE REFUSED IT IN THE MORNING THEY CAN NOT DO IT TODAY, PATIENT HAS TO WAIT UNTIL TOMORROW. PATIENT AGREED ALSO OLLIE STARR VISITED THE [facility]; PATIENT REQUESTED STRONGER MEDICATION, HE SAID [facility] IS NOT HELPING HIM. SHE ORDERED NEW ISHAN HYDROMORPHONE 2MG.
[2022-09-12] MEDS ORDERED: HYDROMORPHONE 1 MG/1 ML DISP.SYRIN IV PRN (15:00)
[2022-09-12] MEDS: HYDROMORPHONE 1 MG/1 ML DISP.SYRIN IV PRN ×2 (15:27→21:33)
[2022-09-12 16:00] VITALS: BP 95/62
--- NOTE | 2022-09-12 19:15 | NUR ---
noc rn opening note received patient in a geriatric bed, a/ox4. no s/s of apparent distress on 2lpm of o2 via nc. c/o 8/10 pain at this time on his legs and side-- will medicate. rt. cw perma cath noted in place, with clean, dry, and intact dressing. al cath draining avila urine with sediments noted. reading A-fib/A-flutter on the tele monitor with 80 bpm. midline on saline lock. call light within reach. safety put into place. will continue with the plan of care for patient.
[2022-09-12 20:00] VITALS: BP 111/74
[2022-09-12] MEDS: GABAPENTIN 300 MG CAPSULE PO SCH (21:10)
[2022-09-12] MEDS: INSULIN GLARGINE, 100 UNIT/ML CARTRIDGE SQ SCH (21:17)
[2022-09-12] MEDS ORDERED: INSULIN GLARGINE, 100 UNIT/ML CARTRIDGE SQ ONE (21:23)
--- NOTE | 2022-09-12 21:33 | NUR ---
noc rn note patient c/o 8/10 pain on his legs and sides. given IV Dilaudid 1mg as ordered PRN. will re-assess.
[2022-09-13] VITALS: BP 135/75
[2022-09-13 04:00] VITALS: BP 119/70
--- NOTE | 2022-09-13 04:00 | NUR ---
noc rn note refused linen change at this time, per patient he wants to sleep and I keep waking him up. agreed for wound tx on his bila legs.
[2022-09-13] MEDS ORDERED: DAKINS HALF STRENGTH (0.25%) 480 ML BOTTLE ONE (04:32)
[2022-09-13 06:36] LABS: EOSINOPHILS % (AUTO) 5.3 % (0.0-6.0); HEMATOCRIT 26 % (39-51); HEMOGLOBIN 8.1 g/dL (13.5-17.5); LYMPHOCYTES # (AUTO) 1.2 K/uL (0.8-4.8); LYMPHOCYTES % (AUTO) 23.5 % (20.0-44.0); MEAN CORPUSCULAR HGB CONC 31 g/dl (31.0-36.0); MEAN CORPUSCULAR VOLUME 79 fL (80-96); MONOCYTES # (AUTO) 0.6 K/uL (0.1-1.30); MONOCYTES % (AUTO) 12.2 % (2.0-12.0); NEUTROPHILS # (AUTO) 2.9 K/uL (1.8-8.9); PLATELET COUNT (AUTO) 100 K/uL (150-450); RED BLOOD CELL COUNT(AUTO) 3.34 MIL/uL (4.5-6.0); WHITE BLOOD COUNT (AUTO) 5.1 K/uL (4.3-11.0)
--- NOTE | 2022-09-13 06:49 | NUR ---
noc rn closing note Ongoing dialysis at this time. patient comfortably sleeping with Bipap still on per patient request. no s/s of apparent distress and no c/o pain at this time. all needs attended. all scheduled medication administered. no significant change on my shift. will endorse to morning shift RN for continuity of patient care.
[2022-09-13 06:59] LABS: ALBUMIN 2.4 g/dL (3.4-5.0); BILIRUBIN,TOTAL 0.4 mg/dL (0.2-1.0); CREATININE 2.6 mg/dL (0.6-1.3); POTASSIUM 4.7 mmol/L (3.5-5.1); TOTAL PROTEIN, SERUM 7.3 g/dL (6.4-8.2)
--- NOTE | 2022-09-13 07:48 | NUR ---
SOFTWARE ENGINEER MOBILE OPENING NOTES RECEIVED PATIENT ASLEEP IN BED, RESPONDS TO VERBAL AND TACTILE STIMULI. A/Ox4 ABLE TO MAKE NEEDS KNOWN. ON BIPAP PER PT REQUEST, NO S/S OF RESPIRATORY DISTRESS. IV ACCESS CATHY MIDLINE S/L. INTACT AND PATENT, NO S/S OF INFILTRATION. RCW PERMACATH, CURRENTLY RECEIVING HD, TOLERATING WELL. ON TELE MONITORING SHOWING A-FIB HR 70. NO C/O OF CHEST PAIN OR DISCOMFORT. BEDBOUND, HAS FC DRAINING JENIFFER URINE AT THIS TIME. SKIN ISSUES: BILATERAL LOWER EXTREMITY DIABETIC WOUNDS, BILATERAL HEEL WOUNDS. DRESSINGS INTACT AND CLEAN. SAFETY MEASURES IN PLACE: BED LOCKED AND IN LOWEST POSITION, SIDE RAILS UPx2, CALL LIGHT WITHIN REACH, AND HOB ELEVATED. WILL CONTINUE TO MONITOR.
[2022-09-13 08:00] VITALS: BP 168/87
[2022-09-13] MEDS: BLOOD SUGAR DIAGNOSTIC 1 EACH STRIP IN SCH ×4 (08:28→22:39)
[2022-09-13] MEDS: PANTOPRAZOLE 40 MG TABLET.DR PO SCH (08:28)
[2022-09-13] MEDS: QUETIAPINE FUMARATE 25 MG TABLET PO SCH ×2 (08:30→16:32)
[2022-09-13] MEDS: ASPIRIN EC 81 MG TABLET.DR PO SCH (08:30)
[2022-09-13] MEDS: METOPROLOL TARTRATE 25 MG TABLET PO SCH ×2 (08:31→21:00)
[2022-09-13] MEDS: DAKINS HALF STRENGTH (0.25%) 480 ML BOTTLE TOP SCH (08:32)
[2022-09-13] MEDS: HYDROCODONE/APAP 10/325MG TABLET PO PRN ×2 (08:34→22:43)
--- NOTE | 2022-09-13 08:39 | NUR ---
RN NOTES PATIENT COMPLETED HD AROUND 0815, 3L OUTPUT, PATIENT TOLERATED WELL. BLOOD SUGAR CHECKED, 96, PATIENT NOW EATING BREAKFAST. PATIENT COMPLAINED OF PAIN 7/10 IN HIS LEGS AND FEET, PRN NARCO ADMINISTERED. WILL CONTINUE TO MONITOR.
--- NOTE | 2022-09-13 10:06 | NUR ---
PATIENT ABLE TO STANDUP WITH PT,ZERO BED AND REWEIGH PT, WEIGH 360 POUNDS.
[2022-09-13] MEDS: HYDROMORPHONE 1 MG/1 ML DISP.SYRIN IV PRN ×3 (10:21→23:19)
--- NOTE | 2022-09-13 10:26 | NUR ---
RN NOTES PATIENT COMPLAINED OF PAIN 9/10 AFTER WORKING WITH PT. PRN DILAUDID ADMINISTERED. PATIENT WAS ABLE TO DO SOME ACTIVITY WITH PT. WILL CONTINUE TO MONITOR.
[2022-09-13 12:00] VITALS: BP 118/68
[2022-09-13] MEDS: INSULIN REGULAR, HUMAN 100 UNIT/ML 3 ML VIAL SQ PRN ×2 (12:17→16:44)
[2022-09-13 16:00] VITALS: BP 163/69
--- NOTE | 2022-09-13 16:57 | NUR ---
RN NOTES PATIENT COMPLAINED OF PAIN, PRN DILAUDID ADMINISTERED. WILL CONTINUE TO MONITOR.
--- NOTE | 2022-09-13 18:41 | NUR ---
YARN SALVAGER CLOSING NOTES PATIENT WATCHING TV IN BED, RESPONDS TO VERBAL AND TACTILE STIMULI. A/Ox4 ABLE TO MAKE NEEDS KNOWN. STABLE ON 2L OF O2 VIA NC, NO S/S OF RESPIRATORY DISTRESS. IV ACCESS CATHY MIDLINE S/L. INTACT AND PATENT, NO S/S OF INFILTRATION. RCW PERMACATH DRESSING IN PLACE. ON TELE MONITORING SHOWING A-FIB HR 69. NO C/O OF CHEST PAIN OR DISCOMFORT. BEDBOUND, HAS FC DRAINING JENIFFER/YELLOW URINE AT THIS TIME. ALL PRESCRIBED MEDICATION ADMINISTERED. SKIN ISSUES: BILATERAL LOWER EXTREMITY DIABETIC WOUNDS, BILATERAL HEEL WOUNDS. DRESSINGS INTACT AND CLEAN. SAFETY MEASURES MAINTAINED: BED LOCKED AND IN LOWEST POSITION, SIDE RAILS UPx2, CALL LIGHT WITHIN REACH, AND HOB ELEVATED. WILL ENDORSE TO NEXT SHIFT ANY MAGED.
[2022-09-13 20:00] VITALS: BP 124/79
[2022-09-13] MEDS: GABAPENTIN 300 MG CAPSULE PO SCH (21:29)
[2022-09-13] MEDS: INSULIN GLARGINE, 100 UNIT/ML CARTRIDGE SQ SCH (21:33)
--- NOTE | 2022-09-13 23:58 | NUR ---
Pt placed on BiPAP with ordered settings. RN notified.
[2022-09-14] VITALS: BP 118/72
[2022-09-14 04:00] VITALS: BP 131/59
[2022-09-14] MEDS: HYDROMORPHONE 1 MG/1 ML DISP.SYRIN IV PRN ×4 (04:18→21:50)
--- NOTE | 2022-09-14 05:09 | NUR ---
Pt refusing ABG. Became slightly combative. Explained reasoning for ABG to the pt. Still refused. automatic machines supervisor notified and aware.
[2022-09-14 06:16] LABS: BASOPHILS % (AUTO) 0.8 % (0.0-2.0); EOSINOPHILS % (AUTO) 6.2 % (0.0-6.0); HEMATOCRIT 27 % (39-51); HEMOGLOBIN 8.3 g/dL (13.5-17.5); LYMPHOCYTES # (AUTO) 1.3 K/uL (0.8-4.8); LYMPHOCYTES % (AUTO) 23.7 % (20.0-44.0); MEAN CORPUSCULAR HGB CONC 30 g/dl (31.0-36.0); MEAN CORPUSCULAR VOLUME 80 fL (80-96); MONOCYTES # (AUTO) 0.7 K/uL (0.1-1.30); MONOCYTES % (AUTO) 12.1 % (2.0-12.0); NEUTROPHILS # (AUTO) 3.2 K/uL (1.8-8.9); NEUTROPHILS % (AUTO) 57.2 % (43.0-81.0); PLATELET COUNT (AUTO) 105 K/uL (150-450); RED BLOOD CELL COUNT(AUTO) 3.43 MIL/uL (4.5-6.0); WHITE BLOOD COUNT (AUTO) 5.7 K/uL (4.3-11.0)
[2022-09-14 06:58] LABS: CALCIUM, SERUM 7.9 mg/dL (8.5-10.1); CREATININE 2.8 mg/dL (0.6-1.3); POTASSIUM 5.2 mmol/L (3.5-5.1)
[2022-09-14 07:03] LABS: ALBUMIN 2.5 g/dL (3.4-5.0); BILIRUBIN,TOTAL 0.4 mg/dL (0.2-1.0); TOTAL PROTEIN, SERUM 7.3 g/dL (6.4-8.2)
--- NOTE | 2022-09-14 07:30 | NUR ---
RN Opening Note Patient AOx4 able to express his concerns. Patient in bed, reports no issues. No signs of distress or discomfort. Discussed POC, pt verbalized agreement. All safety precautions taken, call light and table within reach, bed at lowest position. Will continue to monitor and assist throughout shift.
[2022-09-14] MEDS: PANTOPRAZOLE 40 MG TABLET.DR PO SCH (07:41)
[2022-09-14] MEDS: BLOOD SUGAR DIAGNOSTIC 1 EACH STRIP IN SCH ×4 (07:42→23:00)
[2022-09-14 08:00] VITALS: BP 147/83
[2022-09-14] MEDS: QUETIAPINE FUMARATE 25 MG TABLET PO SCH ×2 (08:39→16:57)
[2022-09-14] MEDS: METOPROLOL TARTRATE 25 MG TABLET PO SCH ×2 (08:40→21:49)
[2022-09-14] MEDS: ASPIRIN EC 81 MG TABLET.DR PO SCH (08:40)
[2022-09-14] MEDS: DAKINS HALF STRENGTH (0.25%) 480 ML BOTTLE TOP SCH (08:47)
[2022-09-14 12:00] VITALS: BP 132/70
[2022-09-14] MEDS: INSULIN REGULAR, HUMAN 100 UNIT/ML 3 ML VIAL SQ PRN ×2 (13:19→18:33)
[2022-09-14 13:26] LABS: ABG OXYGEN SATURATION 97.2 % (92.0-98.5); ABG PH 7.337 (7.350-7.450); ABG PO2 100.3 mmHg (75.0-100.0); AaDO2 91.1 mmHg; MetHb 0.3 % (0.0-1.5); O2Hb 95.9 % (94.0-97.0); SITE, ABG Right Radial; VENT MODE, BG 3.5LPM NC
[2022-09-14 16:00] VITALS: BP 131/71
[2022-09-14] MEDS ORDERED: ONDANSETRON HCL/PF 4 MG/2 ML VIAL IV PRN (16:00)
--- NOTE | 2022-09-14 18:15 | NUR ---
RN Closing Note Patient AOx4 able to express his concerns. Patient reports and shows no signs of distress or discomfort. IV and HD cath with no signs of infiltration. Administered medications as prescribed and provided care as needed. All safety precautions taken, call light and table within reach, bed at lowest position. Will endorse to night nurse for continuity of care.
[2022-09-14 20:00] VITALS: BP 147/83
[2022-09-14] MEDS: GABAPENTIN 300 MG CAPSULE PO SCH (21:49)
[2022-09-15] VITALS: BP 121/65
[2022-09-15] MEDS: INSULIN GLARGINE, 100 UNIT/ML CARTRIDGE SQ SCH ×2 (00:44→21:30)
--- NOTE | 2022-09-15 05:25 | NUR ---
Pt recvd on 2 lpm NC, placed on Bipap overnight. RN was made aware. Q2 checks, no SOB or respiratory distress noted throughout shift. Pt domonique Bipap well.
[2022-09-15] MEDS: BLOOD SUGAR DIAGNOSTIC 1 EACH STRIP IN SCH ×4 (07:18→21:20)
[2022-09-15 07:38] LABS: ALBUMIN 2.5 g/dL (3.4-5.0); BILIRUBIN,TOTAL 0.5 mg/dL (0.2-1.0); CREATININE 2.8 mg/dL (0.6-1.3); POTASSIUM 5.2 mmol/L (3.5-5.1); TOTAL PROTEIN, SERUM 7.5 g/dL (6.4-8.2)
--- NOTE | 2022-09-15 07:42 | NUR ---
RN OPENING NOTE PATIENT IN BED, ASLEEP, APPEARED NOT IN DISTRESS, O2 THROUGH BIPAP MASK, IV ACCESS LEFT UA MIDLINE. UNDERGOING DIALYSIS RIGHT NOW. WILL ACCESS PATIENT CONDITION MORE CLOSELY AFTER DIALYSIS SESSION OVER. BED LOCKED AND IN LOWEST POSITION, CALL LIGHT WITHIN REACH, SAFETY MEASUREMENTS IMPLEMENTED.
--- NOTE | 2022-09-15 07:42 | NUR ---
Pt. endorsed to oncoming ENZO Bhatt. Hemodialysis in progress. Pt. binu. No c/o pain/ discomfort at this time. Medicated for pain x 1 for shift with lasting results.
[2022-09-15 08:00] VITALS: BP 103/47
[2022-09-15] MEDS: PANTOPRAZOLE 40 MG TABLET.DR PO SCH (08:17)
[2022-09-15] MEDS: METOPROLOL TARTRATE 25 MG TABLET PO SCH ×2 (09:00→21:26)
[2022-09-15] MEDS: ASPIRIN EC 81 MG TABLET.DR PO SCH (09:37)
--- NOTE | 2022-09-15 09:39 | NUR ---
LOPRESSOR 50MG NOT ADMINISTERED D/T LOW BP LEVEL 103/47. WILL CONTINUE TO MONITOR.
[2022-09-15] MEDS: QUETIAPINE FUMARATE 25 MG TABLET PO SCH ×2 (09:41→16:18)
[2022-09-15] MEDS: DAKINS HALF STRENGTH (0.25%) 480 ML BOTTLE TOP SCH (09:44)
[2022-09-15] MEDS: HYDROMORPHONE 1 MG/1 ML DISP.SYRIN IV PRN ×2 (10:19→17:05)
[2022-09-15 12:00] VITALS: BP 122/68
[2022-09-15] MEDS: INSULIN REGULAR, HUMAN 100 UNIT/ML 3 ML VIAL SQ PRN ×2 (12:46→16:52)
[2022-09-15 16:00] VITALS: BP 124/61
[2022-09-15] MEDS: HYDROCODONE/APAP 10/325MG TABLET PO PRN (16:04)
--- NOTE | 2022-09-15 19:26 | NUR ---
RN CLOSING NOTE PATIENT IN BED, ASLEEP, APPEARED NOT IN DISTRESS, ON ROOM AIR. IV ACCESS LEFT UA MIDLINE. BED LOCKED AND IN LOWEST POSITION, CALL LIGHT WITHIN REACH, SAFETY MEASUREMENTS IMPLEMENTED.
[2022-09-15 20:00] VITALS: BP 131/70
[2022-09-15] MEDS: GABAPENTIN 300 MG CAPSULE PO SCH (21:26)
[2022-09-16] VITALS: BP 131/70
[2022-09-16 04:00] VITALS: BP 142/81
[2022-09-16] MEDS: BLOOD SUGAR DIAGNOSTIC 1 EACH STRIP IN SCH ×4 (07:45→21:12)
--- NOTE | 2022-09-16 07:48 | NUR ---
RN NOTE DIALYSIS COMPLETED AT THIS TIME, 2.5L REMOVED.
[2022-09-16] MEDS: PANTOPRAZOLE 40 MG TABLET.DR PO SCH (07:58)
[2022-09-16] MEDS: INSULIN REGULAR, HUMAN 100 UNIT/ML 3 ML VIAL SQ PRN ×3 (07:59→17:32)
[2022-09-16 08:00] VITALS: BP 133/63
[2022-09-16] MEDS: HYDROMORPHONE 1 MG/1 ML DISP.SYRIN IV PRN ×3 (08:29→19:53)
[2022-09-16] MEDS: DAKINS HALF STRENGTH (0.25%) 480 ML BOTTLE TOP SCH (09:00)
[2022-09-16] MEDS: ASPIRIN EC 81 MG TABLET.DR PO SCH (10:08)
[2022-09-16] MEDS: FUROSEMIDE 100 MG/10 ML VIAL IV SCH (10:08)
[2022-09-16] MEDS: GABAPENTIN 300 MG CAPSULE PO SCH ×2 (10:08→20:57)
[2022-09-16] MEDS: METOPROLOL TARTRATE 25 MG TABLET PO SCH ×2 (10:09→20:57)
[2022-09-16] MEDS: QUETIAPINE FUMARATE 25 MG TABLET PO SCH ×2 (10:13→17:20)
[2022-09-16 10:23] LABS: ALBUMIN 2.6 g/dL (3.4-5.0); BILIRUBIN,TOTAL 0.6 mg/dL (0.2-1.0); POTASSIUM 4.9 mmol/L (3.5-5.1); TOTAL PROTEIN, SERUM 7.9 g/dL (6.4-8.2)
[2022-09-16 10:24] LABS: CREATININE 2.8 mg/dL (0.6-1.3)
[2022-09-16 12:00] VITALS: BP 119/69
[2022-09-16 16:00] VITALS: BP 123/62
--- NOTE | 2022-09-16 19:41 | NUR ---
RN CLOSING NOTE PATIENT IN BED A/OX4. BREATHING ON 2L NC 02 SAT OF 98%. IV ACCESS LEFT UA MIDLINE SL. BED LOCKED AND IN LOWEST POSITION, CALL LIGHT WITHIN REACH, ALL SAFETY MEASUREMENTS IMPLEMENTED. WILL ENDORSE CONTINUITY OF CARE TO POWERHOUSE HELPER NURSE.
[2022-09-16 20:41] VITALS: BP 113/61
[2022-09-16] MEDS: INSULIN GLARGINE, 100 UNIT/ML CARTRIDGE SQ SCH (21:04)
[2022-09-17] VITALS: BP 129/79
[2022-09-17 04:00] VITALS: BP 128/80
[2022-09-17 06:35] LABS: CALCIUM, SERUM 7.8 mg/dL (8.5-10.1); CREATININE 3.4 mg/dL (0.6-1.3); POTASSIUM 5.6 mmol/L (3.5-5.1)
[2022-09-17 06:42] LABS: ALBUMIN 2.4 g/dL (3.4-5.0); BILIRUBIN,TOTAL 0.5 mg/dL (0.2-1.0); TOTAL PROTEIN, SERUM 7.4 g/dL (6.4-8.2)
--- NOTE | 2022-09-17 07:32 | NUR ---
RN OPENING NOTE RECEIVED REPORT FROM REGISTRY NIGHTSHIFT RN YOHAN. PATIENT DOZING INTERMITTENTLY ON 2 LITERS OXYGEN VIA NASAL CANULA. A FIB CONTROLLED ON PROJECT ENGINEER CHEMICALS. IV ACCESS PATENT AND FLUSHING EASILY WITH NO RESISTANCE, LEFT UPPER ARM PICC. SAFETY MEASURES IMPLEMENTED. WILL CONTINUE PLAN OF CARE AND ANTICIPATE NEEDS.
[2022-09-17] MEDS: PANTOPRAZOLE 40 MG TABLET.DR PO SCH (07:53)
[2022-09-17] MEDS: BLOOD SUGAR DIAGNOSTIC 1 EACH STRIP IN SCH ×4 (07:53→22:18)
[2022-09-17 08:00] VITALS: BP 119/65
[2022-09-17] MEDS: DAKINS HALF STRENGTH (0.25%) 480 ML BOTTLE TOP SCH (09:00)
[2022-09-17] MEDS: METOPROLOL TARTRATE 25 MG TABLET PO SCH ×2 (09:02→21:22)
[2022-09-17] MEDS: ASPIRIN EC 81 MG TABLET.DR PO SCH (09:02)
[2022-09-17] MEDS: QUETIAPINE FUMARATE 25 MG TABLET PO SCH ×2 (09:02→17:46)
[2022-09-17] MEDS: FUROSEMIDE 100 MG/10 ML VIAL IV SCH (09:02)
[2022-09-17] MEDS: HYDROMORPHONE 1 MG/1 ML DISP.SYRIN IV PRN ×3 (09:03→21:26)
[2022-09-17] MEDS: INSULIN REGULAR, HUMAN 100 UNIT/ML 3 ML VIAL SQ PRN ×3 (11:31→22:24)
[2022-09-17 12:00] VITALS: BP 132/78
[2022-09-17 16:00] VITALS: BP 109/69
--- NOTE | 2022-09-17 19:30 | NUR ---
noc rn opening received patient in bed, barely touching his dinner tray. no s/s of apparent distress on 2lpm of o2 via nc. pain tolerable at this time per patient. reading A-fib on the tele monitor, controlled. patient has al cath draining well. call light within reach. will continue with the plan of care for patient.
[2022-09-17 20:00] VITALS: BP 127/76
[2022-09-17] MEDS: GABAPENTIN 300 MG CAPSULE PO SCH (21:23)
[2022-09-17] MEDS: INSULIN GLARGINE, 100 UNIT/ML CARTRIDGE SQ SCH (22:21)
--- NOTE | 2022-09-17 22:24 | NUR ---
noc rn note Blood sugar 143. Given 20 Units of Lantus. Coverage non-administered for patient's blood sugar drops drastically with lantus in the am.
[2022-09-18] VITALS: BP 112/72
[2022-09-18 04:00] VITALS: BP 143/96
--- NOTE | 2022-09-18 07:20 | NUR ---
PIZZA HUT ASSISTANT OPENING NOTES Received pt asleep in bed AOx4. no complaints of pain or discomfort at this time. Pt is currently on NC 2L and tolerating it well. IV access on CATHY midline SL patent and intact. HOB elevated to pts comfort. Siderails up at all times x2. Call light within reach. Will anticipate needs.
--- NOTE | 2022-09-18 07:29 | NUR ---
noc rn closing note needs attended. report given to am rn for continuity of patient care.
[2022-09-18 07:32] LABS: ALBUMIN 2.4 g/dL (3.4-5.0); BILIRUBIN,TOTAL 0.5 mg/dL (0.2-1.0); CALCIUM, SERUM 7.9 mg/dL (8.5-10.1); CREATININE 3.9 mg/dL (0.6-1.3); POTASSIUM 5.8 mmol/L (3.5-5.1); TOTAL PROTEIN, SERUM 7.3 g/dL (6.4-8.2)
--- NOTE | 2022-09-18 07:50 | NUR ---
AIRLINE HOSTESS NOTES Pt started HD.
[2022-09-18 08:00] VITALS: BP 123/72
[2022-09-18] MEDS: BLOOD SUGAR DIAGNOSTIC 1 EACH STRIP IN SCH ×4 (08:01→21:50)
[2022-09-18] MEDS: ASPIRIN EC 81 MG TABLET.DR PO SCH (08:51)
[2022-09-18] MEDS: PANTOPRAZOLE 40 MG TABLET.DR PO SCH (08:51)
[2022-09-18] MEDS: DAKINS HALF STRENGTH (0.25%) 480 ML BOTTLE TOP SCH (08:51)
[2022-09-18] MEDS: QUETIAPINE FUMARATE 25 MG TABLET PO SCH ×2 (08:51→16:44)
[2022-09-18] MEDS: METOPROLOL TARTRATE 25 MG TABLET PO SCH ×2 (08:52→21:40)
--- NOTE | 2022-09-18 09:00 | NUR ---
SUPERVISOR CORE DRILLING NOTES Lopressor held d/t pt receiving HD.
[2022-09-18] MEDS: HYDROMORPHONE 1 MG/1 ML DISP.SYRIN IV PRN ×2 (10:57→17:58)
[2022-09-18] MEDS: FUROSEMIDE 100 MG/10 ML VIAL IV SCH (10:57)
--- NOTE | 2022-09-18 11:08 | NUR ---
MECHANICAL PLANNER NOTES Pt completed HD and tolerated it well. 3L of fluid taken out.
[2022-09-18 12:00] VITALS: BP 114/75
[2022-09-18 16:00] VITALS: BP 112/73
--- NOTE | 2022-09-18 18:33 | NUR ---
DIRECT RESPONSE CONSULTANT CLOSING NOTES All dues meds and tx given as ordered. Pt tolerated everything well. All needs attended to. Pt is currently on NC on 2L and tolerating it well. IV access on LOVE midline patent and intact. HOB elevated to pts comfort. Siderails up at all times x2. Call light within reach. Will endorse to oncoming nurse.
--- NOTE | 2022-09-18 19:30 | NUR ---
CARPENTER PACKING NOTE PT IN BED A/O X 3, NO SOB, NO DISTRESS OR DISCOMFORT NOTED. DENIES PAIN AT THIS TIME. ON TELE A FIB/ A FLUTTER HR 80. ON 2L O2 VIA N/C O2 SAT 99%. DRESSING ON BILATERAL FEET I/C/D. KEPT THE HEEL FLOATED ON PILLOWS. F/C INTACT AND PATENT DRAINING YELLOWISH COLOR URINE. LOVE MIDLINE AND RT CHEST PERMA CATH INTACT. NO S/S OF HYPO OR HYPERGLYCEMIA NOTED. KEPT HIM DRY AND CLEAN. ALL NEEDS ATTENDED. VSS. CONTINUE TO MONITOR HIM.
[2022-09-18 20:00] VITALS: BP 119/63
--- NOTE | 2022-09-18 20:05 | NUR ---
RT NOTE PT RECEIVED ON NASAL CANNULA AWAKE/ALERT. NO RESPIRATORY DISTRESS NOTED. WILL PLACE PT ON BIPAP AT A LATER TIME PER PT REQUEST. WILL CONTINUE TO MONITOR CLOSELY.
[2022-09-18] MEDS: GABAPENTIN 300 MG CAPSULE PO SCH (21:39)
[2022-09-18] MEDS: INSULIN REGULAR, HUMAN 100 UNIT/ML 3 ML VIAL SQ PRN (21:53)
[2022-09-18] MEDS: INSULIN GLARGINE, 100 UNIT/ML CARTRIDGE SQ SCH (21:54)
--- NOTE | 2022-09-18 23:30 | NUR ---
RT NOTE PT PLACED ON NOC BIPAP AT THIS TIME. NO RESPIRATORY DISTRESS NOTED. WILL CONTINUE TO MONITOR.
[2022-09-19] VITALS: BP 156/89
[2022-09-19 04:00] VITALS: BP 150/81
--- NOTE | 2022-09-19 05:15 | NUR ---
RT NOTE PT REFUSED MORNING ABG AT THIS TIME. PT CURRENTLY OFF BIPAP AND ON 2 LPM NASAL CANNULA. NO RESPIRATORY DISTRESS NOTED. ENZO ARAUJO NOTIFIED.
--- NOTE | 2022-09-19 07:05 | NUR ---
SUPERVISOR MECHANIC BOILERMAKING NOTE NO DISTRESS OR DISCOMFORT NOTED. DENIES PAIN. ON O2 2L VIA N/C . DENIES PAIN. ON TELE A FIB AND A FLUTTER HR 80. SIDE RAILS UP X 3 AND CALL LIGHT WITHIN REACH. ENDORSE TO DAY SHIFT NURSE FOR CONTINUE TO CARE.
--- NOTE | 2022-09-19 07:30 | NUR ---
FRENCH FOLDER OPEN NOTE: RECEIVED IN BED. ALERT TIMES FOUR. ON 02 2 LPM NC. SATING 95 %. ON CARDICAC MONITOR A.FIB A.FLUTTER. IV ON RUGHT UPPERARM MIDLINE PATENT. HOB ELEVATED SEMI-FOWLERS POSITION. BED IN LOW POSITION, LOCKED, AND EXIT ALARM ON. BILATERAL HALF SIDE RAILS UP X2. CALL LIGHT IN REACH.
[2022-09-19] MEDS: BLOOD SUGAR DIAGNOSTIC 1 EACH STRIP IN SCH ×4 (07:57→21:49)
[2022-09-19] MEDS: HYDROMORPHONE 1 MG/1 ML DISP.SYRIN IV PRN ×3 (07:59→21:59)
[2022-09-19 08:00] VITALS: BP 142/81
[2022-09-19] MEDS: ASPIRIN EC 81 MG TABLET.DR PO SCH (08:00)
[2022-09-19] MEDS: PANTOPRAZOLE 40 MG TABLET.DR PO SCH (08:00)
[2022-09-19] MEDS: METOPROLOL TARTRATE 25 MG TABLET PO SCH ×2 (08:00→21:49)
[2022-09-19] MEDS: QUETIAPINE FUMARATE 25 MG TABLET PO SCH ×2 (08:00→16:09)
[2022-09-19] MEDS: FUROSEMIDE 100 MG/10 ML VIAL IV SCH (08:00)
[2022-09-19] MEDS: INSULIN REGULAR, HUMAN 100 UNIT/ML 3 ML VIAL SQ PRN (11:57)
[2022-09-19 12:00] VITALS: BP 132/88
[2022-09-19 16:00] VITALS: BP 152/65
[2022-09-19] MEDS: DAKINS HALF STRENGTH (0.25%) 480 ML BOTTLE TOP SCH (17:08)
--- NOTE | 2022-09-19 18:30 | NUR ---
GERIATRIC PHYSICIAN CLOSING NOTE: RECEIVED IN BED. ALERT TIMES FOUR. ON 02 2 LPM NC. SATING 95 %. ON CARDICAC MONITOR A.FIB A.FLUTTER. IV ON RUGHT UPPERARM MIDLINE PATENT. RIGHT UPPER CHEST HD CATHETER WITH CLEAN DRESSING. INTACT.WOUND CARE DONE. KEPT CLEAN AND COMFORTABLE. ON PAIN MANAGEMENT WITH DILAUDID PRN AND EFFECTIVE. HOB ELEVATED SEMI-FOWLERS POSITION. BED IN LOW POSITION, LOCKED, AND EXIT ALARM ON. BILATERAL HALF SIDE RAILS UP X2. CALL LIGHT IN REACH.
--- NOTE | 2022-09-19 19:59 | NUR ---
RT NOTE PT RECEIVED ON 2 LPM NASAL CANNULA. PT AWAKE/ALERT AND RESPONDING TO COMMANDS. NO RESPIRATORY DISTRESS NOTED. WILL PLACE BIPAP AT A LATER TIME PER PT REQUEST. WILL MONITOR.
[2022-09-19 20:00] VITALS: BP 135/71
[2022-09-19] MEDS: GABAPENTIN 300 MG CAPSULE PO SCH (21:50)
[2022-09-19] MEDS: INSULIN GLARGINE, 100 UNIT/ML CARTRIDGE SQ SCH (21:54)
[2022-09-20] VITALS: BP 150/74
[2022-09-20 04:00] VITALS: BP 136/61
[2022-09-20 05:57] LABS: BASOPHILS % (AUTO) 0.7 % (0.0-2.0); EOSINOPHILS % (AUTO) 5.8 % (0.0-6.0); HEMATOCRIT 28 % (39-51); HEMOGLOBIN 8.5 g/dL (13.5-17.5); LYMPHOCYTES # (AUTO) 1.1 K/uL (0.8-4.8); LYMPHOCYTES % (AUTO) 19.5 % (20.0-44.0); MEAN CORPUSCULAR HGB CONC 31 g/dl (31.0-36.0); MEAN CORPUSCULAR VOLUME 80 fL (80-96); MONOCYTES # (AUTO) 0.8 K/uL (0.1-1.30); MONOCYTES % (AUTO) 13.3 % (2.0-12.0); NEUTROPHILS # (AUTO) 3.5 K/uL (1.8-8.9); NEUTROPHILS % (AUTO) 60.7 % (43.0-81.0); PLATELET COUNT (AUTO) 118 K/uL (150-450); RED BLOOD CELL COUNT(AUTO) 3.48 MIL/uL (4.5-6.0); WHITE BLOOD COUNT (AUTO) 5.8 K/uL (4.3-11.0)
[2022-09-20 06:30] LABS: CALCIUM, SERUM 7.9 mg/dL (8.5-10.1); CREATININE 3.3 mg/dL (0.6-1.3); MAGNESIUM 2.1 mg/dL (1.8-2.4); PHOSPHORUS 6.2 mg/dL (2.5-4.9); POTASSIUM 5.2 mmol/L (3.5-5.1)
[2022-09-20 08:00] VITALS: BP 159/85
[2022-09-20] MEDS: BLOOD SUGAR DIAGNOSTIC 1 EACH STRIP IN SCH ×2 (08:00→12:50)
[2022-09-20] MEDS: ASPIRIN EC 81 MG TABLET.DR PO SCH (08:43)
[2022-09-20] MEDS: QUETIAPINE FUMARATE 25 MG TABLET PO SCH (08:44)
[2022-09-20] MEDS: FUROSEMIDE 100 MG/10 ML VIAL IV SCH (08:44)
[2022-09-20] MEDS: METOPROLOL TARTRATE 25 MG TABLET PO SCH (08:44)
[2022-09-20] MEDS: PANTOPRAZOLE 40 MG TABLET.DR PO SCH (08:44)
[2022-09-20] MEDS: DAKINS HALF STRENGTH (0.25%) 480 ML BOTTLE TOP SCH (08:50)
[2022-09-20] MEDS: HYDROMORPHONE 1 MG/1 ML DISP.SYRIN IV PRN (11:18)
[2022-09-20 12:00] VITALS: BP 111/71
[2022-09-20] MEDS ORDERED: PROSOURCE / PROSTAT (PYXIS) 30 ML UDC PO SCH (13:00)
--- NOTE | 2022-09-20 15:45 | NUR ---
WATER TRUCK DRIVER NOTE PATIENT DISCHARGED TO [facility] WITH ZUNILDA. PATIENT ON NC 2 L UPON DISCHARGE AND TRANSFERRED WITH OXYGEN. PATIENT VITALS SIGNS WITHIN NORMAL UPON DISCHARGE. PATIENT HAD DEBICULITIS WOUND ON BOTH FEET HEEL PHOTO TAKEN AND PLACED AT PATIENT'S CHART. DR. MONIQUE PETER STATED THAT PATIENT CAN LEAVE WITH THE [facility]. RIGHT UPPER MIDLINE WAS NOT REMOVED PER CHARGE NURSE LEANN FOR EMERGENCY NEEDED. PATIENT STABLE AND A/O X4 VERY COOPERATIVE, ALL DISCHARGE INSTRUCTION GIVEN TO THE PATIENT AND WAREHOUSE COORDINATOR STAFF TO HANDLE IT TO THE [facility].
[2022-09-20 16:00] VITALS: BP 149/73
--- NOTE | 2022-09-20 18:34 | NUR ---
RN NOTE PATIENT'S ELECTRIC WHEELCHAIR WAS TAKEN BY THE [facility] AT 1830 SEPARATELY THAN PATIENT. PATIENT LEFT AT 1600 HIS ELECTRIC WHEELCHAIR WAS TRANSFERRED AT 1830 BY ANOTHER AMBULANCE TO [facility]
== END 2022-09-20 16:49 | DRG 710 ==
LOC: ER 02:19 → TELE 12:38 → ICU 08-21 08:46 → TELE-TD 08-24 16:35 → TELE1 08-28 15:35
PROVIDERS: ATTEND Nurse Practitioner Family
PROC: 5A1945Z Respiratory Ventilation, 24-96 Consecutive Hours (ICD-10-PCS; principal; 2022-08-21)
PROC: 0BH18EZ Insertion of Endotracheal Airway into Trachea, Via Natural or Artificial Opening Endoscopic (ICD-10-PCS; 2022-08-21)
PROC: 05HM33Z Insertion of Infusion Device into Right Internal Jugular Vein, Percutaneous Approach (ICD-10-PCS; 2022-08-21)
PROC: B543ZZA Ultrasonography of Right Jugular Veins, Guidance (ICD-10-PCS; 2022-08-21)
PROC: 0KBV0ZZ Excision of Right Foot Muscle, Open Approach (ICD-10-PCS; 2022-08-23)
PROC: 5A09557 Assistance with Respiratory Ventilation, Greater than 96 Consecutive Hours, Continuous Positive Airway Pressure (ICD-10-PCS; 2022-08-23)
PROC: 5A1D70Z Performance of Urinary Filtration, Intermittent, Less than 6 Hours Per Day (ICD-10-PCS; 2022-08-23)
PROC: 0KBW0ZZ Excision of Left Foot Muscle, Open Approach (ICD-10-PCS; 2022-08-23)
PROC: 06HM33Z Insertion of Infusion Device into Right Femoral Vein, Percutaneous Approach (ICD-10-PCS; 2022-08-23)
PROC: B54BZZA Ultrasonography of Right Lower Extremity Veins, Guidance (ICD-10-PCS; 2022-08-23)
PROC: 0JH63XZ Insertion of Tunneled Vascular Access Device into Chest Subcutaneous Tissue and Fascia, Percutaneous Approach (ICD-10-PCS; 2022-09-08)
PROC: 05HM33Z Insertion of Infusion Device into Right Internal Jugular Vein, Percutaneous Approach (ICD-10-PCS; 2022-09-08)
PROC: B513YZA Fluoroscopy of Right Jugular Veins using Other Contrast, Guidance (ICD-10-PCS; 2022-09-08)
PROC: 05HA33Z Insertion of Infusion Device into Left Brachial Vein, Percutaneous Approach (ICD-10-PCS; 2022-09-08)
PROC: 0KBW0ZZ Excision of Left Foot Muscle, Open Approach (ICD-10-PCS; 2022-09-13)
PROC: 0KBV0ZZ Excision of Right Foot Muscle, Open Approach (ICD-10-PCS; 2022-09-13)
PROC: 05H933Z Insertion of Infusion Device into Right Brachial Vein, Percutaneous Approach (ICD-10-PCS; 2022-09-18)
DX: A41.9 Sepsis, unspecified organism (principal); N17.0 Acute kidney failure with tubular necrosis; R65.21 Severe sepsis with septic shock; I50.43 Acute on chronic combined systolic (congestive) and diastolic (congestive) heart failure; J15.9 Unspecified bacterial pneumonia; J96.02 Acute respiratory failure with hypercapnia; J96.01 Acute respiratory failure with hypoxia; N18.6 End stage renal disease; E66.2 Morbid (severe) obesity with alveolar hypoventilation; I13.0 Hypertensive heart and chronic kidney disease with heart failure and stage 1 through stage 4 chronic kidney disease, or unspecified chronic kidney disease; J90 Pleural effusion, not elsewhere classified; L03.115 Cellulitis of right lower limb; Z68.43 Body mass index [BMI] 50.0-59.9, adult; E11.22 Type 2 diabetes mellitus with diabetic chronic kidney disease; D50.9 Iron deficiency anemia, unspecified; E11.621 Type 2 diabetes mellitus with foot ulcer; E11.42 Type 2 diabetes mellitus with diabetic polyneuropathy; E11.65 Type 2 diabetes mellitus with hyperglycemia; Z20.822 Contact with and (suspected) exposure to COVID-19; L97.519 Non-pressure chronic ulcer of other part of right foot with unspecified severity; L97.529 Non-pressure chronic ulcer of other part of left foot with unspecified severity; Z88.1 Allergy status to other antibiotic agents; Z88.0 Allergy status to penicillin; E78.5 Hyperlipidemia, unspecified; F11.23 Opioid dependence with withdrawal; Z89.429 Acquired absence of other toe(s), unspecified side; Z91.199 Patient's noncompliance with other medical treatment and regimen due to unspecified reason; Z59.00 Homelessness unspecified; Z79.4 Long term (current) use of insulin; Z79.84 Long term (current) use of oral hypoglycemic drugs; Z79.82 Long term (current) use of aspirin; Z79.899 Other long term (current) drug therapy; I48.91 Unspecified atrial fibrillation; I89.0 Lymphedema, not elsewhere classified; Z88.3 Allergy status to other anti-infective agents; L03.116 Cellulitis of left lower limb; N18.9 Chronic kidney disease, unspecified; Z99.2 Dependence on renal dialysis; F23 Brief psychotic disorder; S91.109A Unspecified open wound of unspecified toe(s) without damage to nail, initial encounter; X58.XXXA Exposure to other specified factors, initial encounter; Y92.9 Unspecified place or not applicable
CPT/HCPCS: 31720; 36410; 36415; 36600; 70450-TC; 71045-TC; 76770-TC; 80048-TC; 80053-TC; 80061-TC; 80202-TC; 81001; 82533; 82728-TC; 82803-TC; 82962-TC; 83540-TC; 83735-TC; 83880; 84100-TC; 84132-TC; 84443-TC; 84484-TC; 85025-TC; 85610-TC; 85652-TC; 86140-TC; 86706; 86803; 87040-TC; 87081-TC; 87340; 87806; 90935-TC; 92526; 92611-TC; 93307-TC; 94002-TC; 94003-TC; 94660; 94760-TC; 94799-TC; 97110-TC; 97112-TC; 97530-TC; A4216; A4217; A6253; A6403; C1750; C1769; C9803; G0378; J0330; J0690; J0692; J1100; J1170; J1644; J1650; J1815; J1940; J1956; J2405; J2704; J2916; J3010; J3370; J3490; J7030; J7040; J7050; J7060; P9047; Q9967